=== PATIENT | female | born 1945 | race Caucasian/White ===

== ENCOUNTER 2017-02-22 03:41 | Inpatient (IN) | payer OTHER, MEDICARE ==
[~2017-02-22] VITALS: Ht 152.4 cm; Wt 47.6 kg
[~2017-02-22 03:41] MED LIST: ABILIFY 10 MG10 MG PO; ALENDRONATE SOD70 M1 PO; ALPRAZOLAM0.5 M3 PO; AZITHROMYCIN500 MG PO; CLOPIDOGREL75 MG PO; DIOVAN80 MG PO; ESCITALOPRAM10 MG PO; FLOVENT HF0.22 MG/Ac INH; LAMISIL250 MG PO; MOXIFLOXACIN H400 M1 PO; MYRBETRIQ25 MG PO; OXYBUTYNIN CHLOR5 MG PO; PAROXETINE HCL40 M1 PO; PREDNISONE 10MG10 M1 PO; PREDNISONE10 MG PO; PROAIR HFA0.09 MG/Ac INH; SIMVASTATIN40 MG PO; SPIRIVA 18 MCG18 MCG INH; THEOPHYLLINE300 M2 PO; THEOPHYLLINE300 MG PO; VESICARE 10MG10 MG PO; ZITHROMAX Z PA250 MG PO
--- NOTE | 2017-02-22 03:50 | ED DYSPNEA/ASTHMA COMPLAINT ---
History of Present Illness General Chief Complaint: Dyspnea (COPD, CHF, Other) Stated Complaint: DIFF BREATHING Source: patient, old records, EMS Exam Limitations: no limitations Vital Signs & Intake/Output Vital Signs & Intake/Output Vital Signs Date Time Temp Pulse Resp B/P B/P Pulse O2 O2 Flow FiO2 Mean Ox Delivery Rate 02/22 0554 96.7 63 20 96/47 97 BIPAP 30% 02/22 0457 64 98 02/22 0411 97 Nasal 3.0L Cannula 02/22 0347 97.5 71 22 132/57 99 Nasal 3.0L Cannula Allergies Coded Allergies: oxycodone (KNOCKED ME OUT 01/13/16) Reconcile Medications Albuterol Sulfate (Proair Hfa) 0.09 MG/Actuation BRENDA 2 PUF INH PRN COPD ( Reported) Alendronate Sodium 70 MG TAB 1 TAB PO QFRIDAY BONE (Reported) Aripiprazole (Abilify) 10 MG TABLET 1 TAB PO DAILY MENTAL HEALTH (Reported) Azithromycin (Zithromax Z Pack) 250 MG TAB 1 TAB PO DAILY PNEUMONIA TAKE 2 TABS ON DAY 1 AND THEN 1 PILL A DAY FOR 4 ADDITIONAL DAYS. CLOPIDOGREL BISULFATE (Clopidogrel) 75 MG TABLET 1 TAB PO DAILY ANTICOAGULANT (Reported) Escitalopram Oxalate 10 MG TABLET 1 TAB PO DAILY DEPRESSION (Reported) Fluticasone Propionate (Flovent Hfa) 0.22 MG/Actuation RBENDA 2 PUFF INH BID COPD (Reported) 220 MCG PER PUFF Mirabegron (Myrbetriq) [address] 1 TAB PO DAILY UNKNOWN (Reported) PAROXETINE HCL (Paroxetine) 40 MG TABLET 1 TAB PO DAILY DEPRESSION (Reported) Simvastatin 40 MG TABLET 1 TAB PO QPM CHOLESTEROL (Reported) Solifenacin Succinate (Vesicare) 10 MG TABLET 1 TAB PO DAILY BLADDER ( Reported) THEOPHYLLINE ANHYDROUS (Theophylline Anhydrous) 300 MG TAB.ER.12H 1 TAB PO QAM COPD (Reported) Tiotropium [place] (Spiriva) 18 MCG CAP.W.DEV 1 CAP INH DAILY COPD (Reported) Valsartan (Diovan) 80 MG TAB 0.5 TAB PO DAILY BLOOD PRESSURE (Reported) Triage Nurses Notes Reviewed? yes HPI: Patient woke up this morning feeling she cannot breathe. Patient denies any chest pain or chest tightness. Patient has had a nonproductive cough. Patient is chronically on 3 L of oxygen. Upon EMS arrival patient was tripoding and not speaking complete sentences. Patient was given a DuoNeb and 125 mg of IV Solu- Medrol. Upon presentation in the emergency department she is much more comfortable and is now able to speak complete sentences. Patient denies any fevers or chills. There is no anorexia. EMS states that they know this patient well and she usually refuses to come to the ER after she takes a few inhalations of her rescue inhaler. Past History Travel History Traveled to [place] past 21 day No Medical History Any Pertinent Medical History? see below for history Neurological: NONE EENT: NONE Cardiovascular: NONE Respiratory: asthma, COPD, emphysema Gastrointestinal: NONE Hepatic: NONE Renal: NONE Musculoskeletal: NONE Psychiatric: anxiety Endocrine: NONE Blood Disorders: NONE Cancer(s): NONE GEOSCIENCE PROFESSOR/Reproductive: NONE History of MRSA: No History of VRE: No History of CDIFF: No Surgical History Surgical History: non-contributory Psychosocial History Who do you live with Patient/Self Services at Home Home Health Aide, Oxygen, Occupational Therapy What is your primary language Turkish Tobacco Use: Quit >30 days ago ETOH Use: denies use Illicit Drug Use: denies illicit drug use Family History Family History, If Any: MOTHER FH: emphysema Hx Contributory? No Review of Systems Review of Systems Constitutional: Reports: no symptoms. EENTM: Reports: no symptoms. Respiratory: Reports: see HPI, cough, short of breath, wheezing. Cardiovascular: Reports: no symptoms. GI: Reports: no symptoms. Genitourinary: Reports: no symptoms. Musculoskeletal: Reports: no symptoms. Skin: Reports: no symptoms. Neurological/Psychological: Reports: no symptoms. Hematologic/Endocrine: Reports: no symptoms. Immunologic/Allergic: Reports: no symptoms. All Other Systems: Reviewed and Negative Physical Exam Physical Exam General Appearance: well developed/nourished, alert, awake, anxious, moderate distress Head: atraumatic, normal appearance Eyes: Bilateral: PERRL, EOMI. Ears, Nose, Throat: normal pharynx, normal ENT inspection, hearing grossly normal Neck: normal inspection, supple, full range of motion Respiratory: decreased breath sounds, wheezing, respiratory distress Cardiovascular: regular rate/rhythm, normal peripheral pulses Gastrointestinal: normal bowel sounds, soft, non-tender, no organomegaly Extremities: normal inspection, normal capillary refill, normal range of motion, no edema Neurologic/Psych: no motor/sensory deficits, awake, alert, oriented x 3, normal mood/affect Skin: intact, normal color, warm/dry Lymphatic: no anterior cervical balwinder Core Measures ACS in differential dx? No Severe Sepsis Present: No Septic Shock Present: No Progress Differential Diagnosis: AMI, bronchitis, COPD, pneumonia, pneumothorax Plan of Care: Orders Procedure Date/time Status ARTERIAL BLOOD GAS (GEN) 02/22 0553 Active BIPAP 02/22 0500 Complete ARTERIAL BLOOD GAS (GEN) 02/22 346 Complete Telemetry/Parole Or Probation Officer 02/22 346 Active BLOOD CULTURE 02/22 346 Active URINALYSIS 02/22 346 Active TROPONIN LEVEL 02/22 346 Complete LACTIC ACID 02/22 346 Complete COMPREHENSIVE METABOLIC PANEL 02/22 346 Complete CBC WITHOUT DIFFERENTIAL 02/22 346 Complete EKG 02/22 343 Active Current Medications Sig/Oskar Start time Last Medication Dose Stop Time Status Admin Sodium Chloride 1,000 ML BOLUS ONE 02/22 0600 UNVr (Normal Saline 0.9%) 02/22 0659 Laboratory Tests 02/22/17 0425: pH 7.29 *L, pCO2 63 *H, pO2 89, HCO3 30 H, ABG O2 Sat (Measured) 96.0, P-50 ( Temp Corrected) Y, Carboxyhemoglobin 0 L, O2 Concentration % 2.5 LPM, Temperature 97.5, O2 Delivery Method N/C, Phlebotomy Draw Site RIGHT RADIAL 02/22/175: Anion Gap 8, Estimated GFR 55 L, BUN/Creatinine Ratio 24.0, Glucose 130 H, Lactic Acid < 0.5 L, Calcium 9.4, Total Bilirubin 0.4, AST 22, ALT 33, Alkaline Phosphatase 88, Troponin I < 0.01, Total Protein 6.2 L, Albumin 3.9, Globulin 2.3, Albumin/Globulin Ratio 1.7, CBC w Diff NO MAN DIFF REQ, RBC 3.78 L, MCV 89.5, MCH 29.0, RDW 14.5, MPV 9.2, Gran % 76.8 H, Lymphocytes % 10.4 L, Monocytes % 9.2, Eosinophils % 2.9, Basophils % 0.7, Absolute Granulocytes 6.9 H, Absolute Lymphocytes 0.9 L, Absolute Monocytes 0.8 H, Absolute Eosinophils 0.3, Absolute Basophils 0.1, PUBS MCHC 32.3 L Microbiology 02/23 408 BLOOD: Blood Culture - RECD 02/22 355 BLOOD: Blood Culture - RECD Diagnostic Imaging: Viewed by Me: Radiology Read. Discussed w/RAD: Radiology Read. CXR Impression: PATIENT: LANI MUHAMMAD PRESENT AGE: 71 PATIENT ACCOUNT NO: [id number] : 45 LOCATION: [facility] ORDERING PHYSICIAN: DENNIS CORTEZ MD SERVICE DATE: 02/22/17 EXAM TYPE: RAD - XRY- PORTABLE CHEST XRAY EXAMINATION: XR PORTABLE CHEST CLINICAL INFORMATION: Shortness of breath COMPARISON: Multiple priors, most recently chest CT from 03/2017 TECHNIQUE: Portable frontal view of the chest was obtained. FINDINGS: The lungs are well expanded. No consolidation, edema, or effusion. No pneumothorax. The cardiomediastinal silhouette is unchanged, with a calcified aorta. No acute osseous abnormality. IMPRESSION: No acute pulmonary findings. DICTATED BY: KAUSHIK BECK MD DATE/TIME DICTATED:02/22/17411 EXTRA GANG SUPERVISOR:KAYLA DATE/TIME TRANSCRIBED:02/22/17411 CONFIDENTIAL, DO NOT COPY WITHOUT APPROPRIATE AUTHORIZATION. <Electronically signed in Other Vendor System> SIGNED BY: EBONY LONGORIA,KAUSHIK 02/22/17416 Initial ED EKG: NSR, nonspecific ST T wave chg Prior EKG: unchanged Rhythm Strip: normal sinus rhythm Comments: Patient's ABG shows hypercarbic respiratory failure. Patient states that she is feeling much better than she did when she first woke up. Patient at this point does not feel that she needs to stay in the hospital. Patient will go on BiPAP for 2 hours and then will keep the ABG. At that point the patient will be reevaluated to determine if she needs admission or can safely be discharged home. After an hour of the BiPAP the patient could not tolerate it anymore. Respiratory has been paged to remove the BiPAP and recheck her ABG. Patient's blood pressure did decrease to 96/50. Patient is asymptomatic from it. A liter of fluid has been home. At this point the patient is agreeable to stay in the hospital. Departure Departure Disposition: STILL A PATIENT Condition: Stable Clinical Impression Primary Impression: Hypercapnic respiratory failure Qualifiers: Chronicity: acute Qualified Code: J96.02 - Acute respiratory failure with hypercapnia Secondary Impressions: COPD exacerbation Referrals: BHARGAV BAIN MD (PCP/Family) Departure Forms: Customer Survey General Discharge Information Admission Note Spoke With: GERONIMO WATTS MD Documentation of Exam: Documentation of any treatments & extenuating circumstances including Concerns Regarding Discharge (functional status, medication knowledge or non-compliance, living conditions, etc.) that warrant an admission rather than observation: [IV steroids, IV antibiotics, IV fluids, nebulizers, pulmonary consultation] Critical Care Note Critical Care Note Critical Care Time: mins: (75 MIN)
--- NOTE | 2017-02-22 04:17 | RADIOLOGY REPORT ---
EXAMINATION: XR PORTABLE CHEST CLINICAL INFORMATION: Shortness of breath COMPARISON: Multiple priors, most recently chest CT from 01/02/2017 TECHNIQUE: Portable frontal view of the chest was obtained. FINDINGS: The lungs are well expanded. No consolidation, edema, or effusion. No pneumothorax. The cardiomediastinal silhouette is unchanged, with a calcified aorta. No acute osseous abnormality. IMPRESSION: No acute pulmonary findings.
[2017-02-22 04:20] LABS: ABSOLUTE BASOPHIL COUNT 0.1 /CUMM (0.0-0.2); ABSOLUTE EOSINOPHIL COUNT 0.3 /CUMM (0.0-0.7); ABSOLUTE GRANULOCYTE CT 6.9 /CUMM (1.4-6.5); ABSOLUTE LYMPH COUNT 0.9 /CUMM (1.2-3.4); ABSOLUTE MONOCYTE COUNT 0.8 /CUMM (0.10-0.60); BASOPHIL % 0.7 % (0.0-2.0); EOSINOPHIL % 2.9 % (0-5); GRANULOCYTE % 76.8 % (42.2-75.2); HEMATOCRIT 33.8 % (37-47); MEAN CORPUSCULAR HGB CONC 32.3 G/DL (33.0-37.0); MEAN CORPUSCULAR VOLUME 89.5 FL (81.0-99.0); MEAN PLATELET VOLUME 9.2 FL (7.4-10.4); PLATELET COUNT 254 /CUMM (130-400); RBC DISTRIBUTION WIDTH 14.5 % (11.5-14.5); RED BLOOD CELL CT 3.78 /CUMM (4.20-5.40); WHITE BLOOD CELL COUNT 8.9 /CUMM (4.8-10.8)
--- NOTE | 2017-02-22 07:16 | History & Physical ---
MAGYYandyFIORELLAINOCENTE 02/22/17 0715: General Information and HPI MD Statement: I have seen and personally examined LANI MUHAMMAD and documented this H&P. The patient is a 71 year old F who presented with a patient stated chief complaint of [SOB]. Source of Information: patient Exam Limitations: no limitations History of Present Illness: This is a 71-year-old female previous smoker (72 pack years, quit 10 years ago) with past medical history of COPD on 3 L of home oxygen, emphysema, hyperlipidemia, depression, hypertension, was BIBA from home with chief complaint of worsening shortness of breath to [facility] on 02/22 around 4 AM. Apprently,the patient was doing all right 2 days prior to admission, when she started feeling short of breath day before yesterday night, however she continued to take her inhalers and she felt better.The next day which is in the night of admission, she woke up in the middle of the night gasping for breathing , she got her up, she again tried using her inhaler, however this time she did not feel better at all , in fact the shortness of breath was worsening. Nothing made her comfortable, she was short of breath sitting as well as lying down. She denied any chest pain, palpitations, lower extremity swelling, headache, recent sore throat, any sick contacts, nasal congestion. At baseline she does have shortness of breath and she is on 3 L of home oxygen. Recently in last few years she says that the shortness of breath has been worsening and she needs help with most of her activities of daily living. She has 3 separate home health aides that come different days of the week and help her with cleaning, housekeeping, getting her medications, she gets prepared meals from outside, she can dress up and bath herself otherwise all her other activities she needs help with. The limiting factor has been shortness of breath. She follows up with Dr. Slater as her pulmonary doctor. Bhargav King MD is her primary care. The last time she saw Dr. Slater as per her would be 2 years ago. Allergies/Medications Allergies: Coded Allergies: oxycodone (KNOCKED ME OUT 01/13/16) Home Med list Albuterol Sulfate (Proair Hfa) 0.09 MG/Actuation BRENDA 2 PUF INH PRN COPD ( Reported) Alendronate Sodium 70 MG TAB 1 TAB PO QFRIDAY BONE (Reported) Aripiprazole (Abilify) 10 MG TABLET 1 TAB PO DAILY MENTAL HEALTH (Reported) Azithromycin (Zithromax Z Pack) 250 MG TAB 1 TAB PO DAILY PNEUMONIA TAKE 2 TABS ON DAY 1 AND THEN 1 PILL A DAY FOR 4 ADDITIONAL DAYS. CLOPIDOGREL BISULFATE (Clopidogrel) 75 MG TABLET 1 TAB PO DAILY ANTICOAGULANT (Reported) Escitalopram Oxalate 10 MG TABLET 1 TAB PO DAILY DEPRESSION (Reported) Fluticasone Propionate (Flovent Hfa) 0.22 MG/Actuation BRENDA 2 PUFF INH BID COPD (Reported) 220 MCG PER PUFF Mirabegron (Myrbetriq) [address] TAB PO DAILY UNKNOWN (Reported) Paroxetine HCl 40 MG TABLET 1.5 TAB PO DAILY MENTAL HEALTH (Reported) Simvastatin 40 MG TABLET 1 TAB PO QPM CHOLESTEROL (Reported) Solifenacin Succinate (Vesicare) 10 MG TABLET 1 TAB PO DAILY BLADDER ( Reported) THEOPHYLLINE ANHYDROUS (Theophylline Anhydrous) 300 MG TAB.ER.12H 1 TAB PO QAM COPD (Reported) Tiotropium [place] (Spiriva) 18 MCG CAP.W.DEV 1 CAP INH DAILY COPD (Reported) Compliance With Home Meds: FAIR Past History Travel History Traveled to [place] past 21 day No Medical History Neurological: NONE EENT: NONE Cardiovascular: NONE Respiratory: asthma, COPD, emphysema Gastrointestinal: NONE Hepatic: NONE Renal: NONE Musculoskeletal: NONE Psychiatric: anxiety Endocrine: NONE Blood Disorders: NONE Cancer(s): NONE 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 Home Who Do You Live With? self Services at Home: Home Health Aide, Oxygen, Occupational Therapy Smoking Status: Former Smoker ETOH Use: denies use Illicit Drug Use: denies illicit drug use Living Will? no Functional Ability ADLs Independent: dressing, eating, toileting, bathing. Ambulation: independent IADLs Needs Assist: shopping, housework, finances, food prep, transportation, medication admin. Review of Systems Review of Systems Constitutional: Reports: malaise. Denies: chills, diaphoresis, fever, weakness, unexplained weight loss. EENTM: Denies: blurred vision, double vision, visual changes, eye pain. Cardiovascular: Denies: chest pain, edema, orthopena, palpitations. Respiratory: Reports: cough, short of breath, sputum production, wheezing. Denies: hemoptysis, orthopnea, stridor. GI: Denies: abdominal pain, bloating, constipation, diarrhea. Genitourinary: Denies: discharge, dysuria, frequency, hematuria. Musculoskeletal: Denies: back pain, gout, joint pain. Skin: Denies: cysts, change in skin color, change in hair/nails, dryness, erythema. Neurological/Psychological: Reports: anxiety. Denies: cognitive dysfunction, confusion. Hematologic/Endocrine: Reports: no symptoms. Immunologic/Allergic: Reports: no symptoms. All Other Systems: Reviewed and Negative Exam & Diagnostic Data Last 24 Hrs of Vital Signs/I&O Vital Signs Date Time Temp Pulse Resp B/P B/P Pulse O2 O2 Flow FiO2 Mean Ox Delivery Rate 02/22 0704 102/56 02/22 0605 62 96 02/22 0554 96.7 63 20 96/47 97 BIPAP 30% 02/22 0457 64 98 02/22 0411 97 Nasal 3.0L Cannula 02/22 0347 97.5 71 22 132/57 99 Nasal 3.0L Cannula Intake & Output 02/22 0800 02/22 0000 02/21 1600 Intake Total 260 Output Total Balance 260 Intake, IV 260 Patient 47.627 kg Weight Weight Reported by Patient Measurement Method Physical Exam General Appearance Alert, Oriented X3, Cooperative, Mild Distress Skin No Rashes, No Breakdown Skin Temp/Moisture Exam: Cool/Dry Sepsis Skin Exam (color): Normal for Ethnicity HEENT Atraumatic, PERRLA, EOMI Neck Supple, No JVD Lymphatic no lad Cardiovascular Regular Rate, Normal S1, Normal S2, No Murmurs Lungs b/l mild wheezing present, no crackles, no other adventitous sounds. Abdomen Normal Bowel Sounds, Soft, No Tenderness Neurological Normal Gait, Normal Speech, Strength at 5/5 X4 Ext, Normal Tone Extremities No Clubbing, No Cyanosis, No Edema, Normal Pulses Vascular Normal Pulses Last 24 Hrs of Labs/Chauncey: Laboratory Tests 02/22/17 0646: Lactic Acid Cancelled 02/22/17 0600: pH 7.29 *L, pCO2 60 *H, pO2 80, HCO3 29 H, ABG O2 Sat (Measured) 95.0 L, P-50 (Temp Corrected) Y, Carboxyhemoglobin 0.2 L, O2 Concentration % 30%, Temperature 96.7 L, Respiration Rate 18, O2 Delivery Method V-60, Vent Mode ST, Expiratory Pressure 4, Inspiratory Pressure 10, Phlebotomy Draw Site RIGHT RADIAL 02/22/17 0425: pH 7.29 *L, pCO2 63 *H, pO2 89, HCO3 30 H, ABG O2 Sat (Measured) 96.0, P-50 ( Temp Corrected) Y, Carboxyhemoglobin 0 L, O2 Concentration % 2.5 LPM, Temperature 97.5, O2 Delivery Method N/C, Phlebotomy Draw Site RIGHT RADIAL 02/22/17 0355: Anion Gap 8, Estimated GFR 55 L, BUN/Creatinine Ratio 24.0, Glucose 130 H, Lactic Acid < 0.5 L, Calcium 9.4, Total Bilirubin 0.4, AST 22, ALT 33, Alkaline Phosphatase 88, Troponin I < 0.01, Total Protein 6.2 L, Albumin 3.9, Globulin 2.3, Albumin/Globulin Ratio 1.7, CBC w Diff NO MAN DIFF REQ, RBC 3.78 L, MCV 89.5, MCH 29.0, RDW 14.5, MPV 9.2, Gran % 76.8 H, Lymphocytes % 10.4 L, Monocytes % 9.2, Eosinophils % 2.9, Basophils % 0.7, Absolute Granulocytes 6.9 H, Absolute Lymphocytes 0.9 L, Absolute Monocytes 0.8 H, Absolute Eosinophils 0.3, Absolute Basophils 0.1, PUBS MCHC 32.3 L Microbiology 02/23 408 BLOOD: Blood Culture - RECD 02/22 355 BLOOD: Blood Culture - RECD Diagnostic Data EKG Results Rate of 76, sinus rhythm, normal axis, QTC of 410. CXR Results SERVICE DATE: 02/22/17 EXAM TYPE: RAD - XRY-PORTABLE CHEST XRAY EXAMINATION: XR PORTABLE CHEST CLINICAL INFORMATION: Shortness of breath COMPARISON: Multiple priors, most recently chest CT from 01/02/2017 TECHNIQUE: Portable frontal view of the chest was obtained. FINDINGS: The lungs are well expanded. No consolidation, edema, or effusion. No pneumothorax. The cardiomediastinal silhouette is unchanged, with a calcified aorta. No acute osseous abnormality. IMPRESSION: No acute pulmonary findings. Assessment/Plan Assessment: In summary this is a 71-year-old female, known case of COPD (emphysema) on 3 L of home oxygen, previous smoker (72 pack years, quit 10 years ago), along with past medical history of hyperlipidemia, hypertension, depression, brought in by ambulance from home for chief complain of worsening shortness of breath, along with acute exacerbation wherein she had to get up in the middle of the night, not improved by taking her usual inhalers was found to be in hypercarbic respiratory failure while at the emergency department. Vitals on presentation were blood pressure of 132/57, mean arterial pressure of 82, pulse of 71, Tmax of 97.5. ABG initially was 7.29/63/89/96%. She was put on BiPAP at the emergency department. White count of 8.9, H/H of 33.8/10.9, platelet of 254. Electrolytes within normal limit, BUN and creatinine 24/1.0, blood glucose of 130. Calcium of 9.4, liver function tests within normal limits, alkaline phosphatase normal. Initial set of troponin was negative. EKG showed normal sinus rhythm with rate of 73,, axis, QTC of 410, nonspecific T -wave abnormalities however no acute changes. Chest x-ray was negative for any acute cardiopulmonary finding. We will admit the patient to general medicine floor for hypercarbic respiratory failure secondary to COPD exacerbation. Problem #1 acute hypercarbic respiratory failure secondary to COPD exacerbation. * Continue to monitor vitals qshift. * Continue to maintain oxygen saturation greater than 92% all the time. * Continue BiPAP v/s nasal cannula as tolerated while keeping o2 sats > 92% all the time and taper as tolerated. * Continue TRC nebulizations. * Peak expiration flow. * She received 125 mg of IV Solu-Medrol emergency department. * Continue iv solumedrol 40 mg Q8 * She also received one time of IV ceftriaxone and azithromycin after collection of the blood cultures. * We'll send sputum cultures. * Chest x-ray did not show any acute pulmonary findings. * Continue azithromycin - day 1/5 today for its anti-inflammatory effect. * pulm consult with Dr stevens. Problem #2 history of hyperlipidemia. * Continue statin. Problem #3 history of hypertension. * Patient was noted to be hypotensive blood pressure was noted to be 96/70 after putting the patient on BiPAP therefore we'll hold the blood pressure medication for now. * Continue to monitor blood pressure. * Restart as tolerated. Problem #4 history of depression and anxiety. * Patient is on Lexapro, paroxetine, aripiprazole at home. * We will hold that for now. * Restart as tolerated. She is on alendronate for osteoporosis, Vesicare for urinary issues and clopidogrel for which she is not 100% sure., however all three meds were reconciled by pharmacy ( [facility]) Will need to confirm BP meds as records say losartan but [facility] pharmacy says amlodipine 10, patient is unsure. Mild/moderate and severe pain pathway ordered with Tylenol, mainly as the patient is allergic to oxycodone. Patient is full code. DVT prophylaxis with Lovenox. Mild/moderate and severe pain pathway ordered. Regular diet. As Ranked By This Provider Problem List: 1. COPD exacerbation 2. HTN (hypertension) 3. Hypercapnic respiratory failure Qualifiers Chronicity: acute Qualified Code: J96.02 - Acute respiratory failure with hypercapnia 4. DVT prophylaxis Core Measures/Miscellaneous Acute Coronary Syndrome ACS Diagnosis: No Cerebrovascular Accident CVA/TIA Diagnosis: No Congestive Heart Failure CHF Diagnosis: No Venous Thromboembolism VTE Risk Factors: Age > 40 No [facility] VTE prophylaxis d/t: No contraindications No VTE Pharm Prophylaxis d/t: No contraindications VTE Diagnosis: No VTE Type: NONE VTE Confirmed by (Test): NONE Severe Sepsis Severe Sepsis Present: No Septic Shock Septic Shock Present: No Miscellaneous Documentation Attending Case Discussed With: TOPHER WATTS MDYandy Primary Care Physician: ODELL LONGORIA,BHARGAV Patient sees these Specialists DR stevens Level of Patient Care: General Medicine ANNA FOSS 02/22/17 1154: Attending MD Review Statement Attending Statement Attending MD Statement: examined this patient, discuss w/resident/PA/PHOTOGRAPHIC LITHOGRAPHER, agreed w/resident/PA/PHOTOGRAPHIC LITHOGRAPHER, discussed with family, reviewed EMR data (avail), discussed with nursing, discussed with case mgmt, reviewed images, amended to note Attending Assessment/Plan: admit to gen/med for acute hypercarbic respiratroy failure, COPD exacerbation, consult pulmonary. Dr Stevens. closely follow.
[2017-02-22 10:02] VITALS: BP 130/70
[2017-02-22 11:48] VITALS: BP 120/60
[2017-02-22 15:08] VITALS: BP 140/60
[2017-02-22 23:02] VITALS: BP 122/50
[2017-02-23 06:39] VITALS: BP 156/70
--- NOTE | 2017-02-23 13:38 | PN- Housestaff ---
SAWYER LONGORIA,ENID 02/23/17 1337: Subjective Follow-up For: COPD exacerbation Subjective: Saw pt at bedside. She states that she feels better but doesn't feel comfortable leaving today as there is nobody to take care of her at home. She is still feeling SOB at her baseline 3L. Afebrile overnight and no complaints. Review of Systems Constitutional: Denies: chills, fever, weakness. EENTM: Reports: no symptoms. Cardiovascular: Denies: chest pain, palpitations. Respiratory: Reports: short of breath. Denies: cough, sputum production. Gastrointestinal: Reports: no symptoms. Genitourinary: Reports: no symptoms. Musculoskeletal: Reports: no symptoms. Skin: Reports: no symptoms. Objective Last 24 Hrs of Vital Signs/I&O Vital Signs Date Time Temp Pulse Resp B/P B/P Pulse O2 O2 Flow FiO2 Mean Ox Delivery Rate 02/23 1423 98.0 90 20 122/80 96 Room Air 02/23 1056 99 Nasal 3.0L Cannula 02/23 0800 Nasal 3.0L Cannula 02/23 0639 98.9 98 24 156/70 99 Nasal 4.0L Cannula 02/23 0000 Nasal 3.0L Cannula 02/22 2302 98.1 86 22 122/50 97 Nasal Cannula 02/22 1958 98 Nasal 3.0L Cannula Intake & Output 02/23 1600 02/23 0800 02/23 0000 Intake Total 800 Output Total 100 Balance 800 -100 Intake, Oral 800 Output, Urine 100 Physical Exam General Appearance: Alert, Oriented X3, Cooperative, No Acute Distress HEENT: Atraumatic, PERRLA, EOMI Neck: Supple Cardiovascular: Regular Rate, Normal S1, Normal S2, No Murmurs Lungs: diminished breath sounds but no wheezes present Abdomen: Soft, No Tenderness Current Medications: Current Medications Sig/Oskar Start time Last Medication Dose Route Stop Time Status Admin Acetaminophen 650 MG Q6P PRN 02/22 0715 AC PO Acetaminophen 1,000 MG Q6 PRN 02/22 0715 AC IV Albuterol Sulfate 3 ML BID 02/22 2200 AC 02/23 INH 1051 Aripiprazole 10 MG DAILY 02/22 1235 AC 02/23 PO 0957 Atorvastatin Calcium 40 MG 1700 02/22 1700 AC 02/23 PO 1655 Azithromycin 250 MG DAILY 02/23 1000 AC 02/23 PO 0956 Clopidogrel Bisulfate 75 MG DAILY 02/23 1651 UNVr PO Enoxaparin Sodium 40 MG DAILY 02/22 1000 AC 02/23 SC 0957 Escitalopram Oxalate 10 MG DAILY 02/22 1235 AC 02/23 PO 0956 Ipratropium [place] 2.5 ML BID 02/22 2200 AC 02/23 INH 1051 Methylprednisolone 40 MG Q8 02/22 1400 AC 02/23 IV 02/26 0601 1444 Oxybutynin Chloride 5 MG BID 02/22 1236 AC 02/23 PO 0956 Paroxetine HCl 60 MG DAILY 02/22 1237 AC 02/23 PO 0956 Theophylline 300 MG QAM 02/22 1236 AC 02/23 PO 0956 Assessment/Plan Assessment: This is a 71-year-old female with PMH emphysema on 3 L of home oxygen, previous smoker (72 pack years, quit 10 years ago), hyperlipidemia, hypertension, depression presenting for CC worsening shortness of breath and found to be in hypercarbic respiratory failure while at the emergency department. Admitted to [facility] for managment of COPD exacerbation. PLAN Acute hypercarbic respiratory failure 2/2 to COPD exacerbation: pT REQURIED BIPAP IN ed. Once she same to floor she has maintained sats on NC. Today dec reased NC to her baseline 3L. * Chest x-ray did not show any acute pulmonary findings. * Continue to maintain oxygen saturation greater than 92% all the time. * Continue BiPAP v/s nasal cannula as tolerated * Continue TRC nebulizations * Peak expiration flow * Solumedrol 40mg q12--\. convert to PO steroids * Azithromycin. * We'll send sputum cultures. * Con't Theophylline; level not therapeutic hyperlipidemia. * Continue statin. hypertension. Had some transient hypotension after bipap administration, but subsequently returned to normal. * Continue to monitor blood pressure; will re-start BP meds. * BP meds as records say losartan but [facility] pharmacy says amlodipine 10, patient is unsure; in interim will administer amlodipine 5 and titrate history of depression and anxiety. * Cont' Lexapro, paroxetine, aripiprazole at home. Note! Pt is on clopidogrel: Pt cannot give pertinent hx on why she started medication. BUt upon further investigation and calling PCP she has hx of stroke and has had end-arterectomies. * Continue clopidogrel full code. DVT prophylaxis with Lovenox. Regular diet. Problem List: 1. COPD exacerbation 2. HTN (hypertension) 3. HLD (hyperlipidemia) 4. CAD (coronary artery disease) 5. Anxiety and depression 6. Bronchitis Pain Ratin Pain Location: none Pain Goal: Remain pain free Pain Plan: current reg Tomorrow's Labs & Rationales: cbc bep ANNA FOSS 02/23/17 1345: Attending MD Review Statement Attending Statement Attending MD Statement: examined this patient, discuss w/resident/PA/UTILITIES SERVICE INVESTIGATOR, agreed w/resident/PA/UTILITIES SERVICE INVESTIGATOR, discussed with family, reviewed EMR data (avail), discussed with nursing, discussed with case mgmt, reviewed images, amended to note Attending Assessment/Plan: admit to gen/med for acute hypercarbic respiratroy failure, COPD exacerbation, clinically improving, follow o/p Dr Stevens and PCP.
[2017-02-23 14:23] VITALS: BP 122/80
[2017-02-23 23:16] VITALS: BP 138/60
[2017-02-24 06:30] VITALS: BP 126/74
--- NOTE | 2017-02-24 07:46 | Patient Discharge Instructions ---
Discharge Instructions General Discharge Information You were seen/treated for: COPD exacerbation Watch for these problems: Worsening Shortness of breath fever Special Instructions: 1. Follow up with your PCP in one week 2. Follow up with your scale model maker in one week 3. Finish your steroids and Azithromycin 4. Cont' using oxygen tank at 3L at home Diet Continue normal diet: Yes Activity Activity Self Limited: Yes Acute Coronary Syndrome Inclusion Criteria At DC or during hospital stay patient has or had the following: ACS DIAGNOSIS No Discharge Core Measures Meds if any: Prescribed or Continued at Discharge Meds if any: NOT Prescribed or Continued at Discharge Congestive Heart Failure Inclusion Criteria At DC or during hospital stay patient has or had the following: CHF DIAGNOSIS No Discharge Core Measures Meds if any: Prescribed or Continued at Discharge Meds if any: NOT Prescribed or Continued at Discharge Cerebrovascular accident Inclusion Criteria At DC or during hospital stay patient has or had the following: CVA/TIA Diagnosis No Discharge Core Measures Meds if any: Prescribed or Continued at Discharge Meds if any: NOT Prescribed or Continued at Discharge Venous thromboembolism Inclusion Criteria VTE Diagnosis No VTE Type NONE VTE Confirmed by (Test) NONE Discharge Core Measures - Per Current guidelines, there needs to be overlap - treatment for the first 5 days of Warfarin therapy. - If discharged on Warfarin prior to 5 days of - overlap therapy, the patient will need to be - assessed for post discharge needs including - *Post discharge parental anticoagulation - *Warfarin and/or parental anticoagulation education - *Follow up date to check INR post discharge At least 5 days overlap therapy as Inpatient No Meds if any: Prescribed or Continued at Discharge Note: Overlap Therapy is Warfarin and Anticoagulant Meds if any: NOT Prescribed or Continued at Discharge
[2017-02-24] MEDS ORDERED: AZITHROMYCIN250 M1 PO (07:50)
--- NOTE | 2017-02-24 09:01 | PN- Housestaff ---
SAWYER LONGORIA,ENID 02/24/17 0856: Subjective Follow-up For: COPD exacerbation Subjective: Saw pt at bedside. She was sitting up in chair at bedside watching television. Back to her baseline 3l O2. No acute overnight events or complaint. Pt is ready for DC home Review of Systems Constitutional: Denies: chills, fever, weakness. Cardiovascular: Reports: no symptoms. Respiratory: Denies: cough, orthopnea, short of breath, wheezing. Gastrointestinal: Reports: no symptoms. Genitourinary: Reports: no symptoms. Musculoskeletal: Reports: no symptoms. Skin: Reports: no symptoms. Objective Last 24 Hrs of Vital Signs/I&O Vital Signs Date Time Temp Pulse Resp B/P B/P Pulse O2 O2 Flow FiO2 Mean Ox Delivery Rate 02/24 0630 97.7 87 22 126/74 99 Nasal 2.0L Cannula 02/24 0228 98 Nasal 2.0L Cannula 02/24 0000 96 Nasal 2.0L Cannula 02/23 2316 98.0 92 20 138/60 97 Nasal 2.0L Cannula 02/23 2002 96 Nasal 4.0L Cannula 02/23 1600 Nasal 2.0L Cannula 02/23 1423 98.0 90 20 122/80 96 Room Air 02/23 1056 99 Nasal 3.0L Cannula Intake & Output 02/24 1600 02/24 0800 02/24 0000 Intake Total 240 1220 Output Total Balance 240 1220 Intake, IV 20 Intake, Oral 240 1200 Physical Exam General Appearance: Alert, Oriented X3, Cooperative, No Acute Distress Skin: No Rashes, No Significant Lesion HEENT: Atraumatic, PERRLA, EOMI Neck: Supple Cardiovascular: Regular Rate, Normal S1, Normal S2, No Murmurs Lungs: She has decreased breath sounds bilat. No wheezes. Abdomen: Soft, No Tenderness Extremities: No Edema Current Medications: Current Medications Sig/Oskar Start time Last Medication Dose Route Stop Time Status Admin Acetaminophen 650 MG Q6P PRN 02/22 0715 AC PO Acetaminophen 1,000 MG Q6 PRN 02/22 0715 AC IV Albuterol Sulfate 3 ML BID 02/22 2200 AC 02/24 INH 0213 Aripiprazole 10 MG DAILY 02/22 1235 AC 02/23 PO 0957 Atorvastatin Calcium 40 MG 1700 02/22 1700 AC 02/23 PO 1655 Azithromycin 250 MG DAILY 02/23 1000 AC 02/23 PO 0956 Clopidogrel Bisulfate 75 MG DAILY 02/23 1651 AC 02/23 PO 2108 Enoxaparin Sodium 40 MG DAILY 02/22 1000 AC 02/23 SC 0957 Escitalopram Oxalate 10 MG DAILY 02/22 1235 DC 02/23 PO 0956 Ipratropium [place] 2.5 ML BID 02/22 2200 AC 02/24 INH 0213 Methylprednisolone 40 MG Q12 02/24 1000 CAN IV 02/26 2201 Methylprednisolone 40 MG Q8 02/22 1400 DC 02/24 IV 02/26 0601 0549 Nicotine 7 MG DAILY 02/24 0115 DC TOP Oxybutynin Chloride 5 MG BID 02/22 1236 AC 02/23 PO 2108 Paroxetine HCl 60 MG DAILY 02/22 1237 AC 02/23 PO 0956 Prednisone 60 MG DAILY 02/24 1000 AC PO Theophylline 300 MG QAM 02/22 1236 AC 02/23 PO 0956 Last 24 Hrs of Lab/Chauncey Results Last 24 Hrs of Labs/Mics: Laboratory Tests 02/24/17 0820: CBC w Diff Pending, WBC Pending, RBC Pending, Hgb Pending, Hct Pending, MCV Pending, MCH Pending, RDW Pending, Plt Count Pending, MPV Pending, PUBS MCHC Pending 02/24/17 0737: Sodium Cancelled, Potassium Cancelled, Chloride Cancelled, Carbon Dioxide Cancelled, Anion Gap Cancelled, BUN Cancelled, Creatinine Cancelled, BUN/ Creatinine Ratio Cancelled Assessment/Plan Assessment: This is a 71-year-old female with PMH emphysema on 3 L of home oxygen, previous smoker (72 pack years, quit 10 years ago), hyperlipidemia, hypertension, depression presenting for CC worsening shortness of breath and found to be in hypercarbic respiratory failure while at the emergency department. Admitted to [facility] for managment of COPD exacerbation. PLAN Acute hypercarbic respiratory failure 2/2 to COPD exacerbation: Pt required BIPAP in ED. Once she same to floor she has maintained sats on NC. Since day 2 of hosptializatin pt at her baseline 3L NC. Admission Chest x-ray did not show any acute pulmonary findings. * Continue to maintain oxygen saturation greater than 92% all the time. * Continue BiPAP v/s nasal cannula as tolerated * Continue TRC nebulizations * Peak expiration flow * PO steroids 40mg--> with rapid taper home * Azithromycin 3/ * Con't Theophylline; level not therapeutic hyperlipidemia. * Continue statin. hypertension. Had some transient hypotension after bipap administration, but subsequently returned to normal. Today BP 126/74 * Continue to monitor blood pressure; will re-start BP meds. * BP meds as records say losartan but [facility] pharmacy says amlodipine 10, patient is unsure; in interim will administer amlodipine 5 and titrate history of depression and anxiety. * Cont' Lexapro, paroxetine, aripiprazole at home. Note! Pt is on clopidogrel: Pt cannot give pertinent hx on why she started medication. But upon further investigation and calling PCP she has hx of stroke and has had end-arterectomies. * Continue clopidogrel full code. DVT prophylaxis with Lovenox. Regular diet. Problem List: 1. COPD exacerbation 2. HTN (hypertension) 3. HLD (hyperlipidemia) 4. Anxiety and depression Pain Ratin Pain Location: none Pain Goal: Remain pain free Pain Plan: none Tomorrow's Labs & Rationales: none DVT/Prophylaxis: pharmacological ANNA FOSS 02/24/17 1053: Attending MD Review Statement Attending Statement Attending MD Statement: examined this patient, discuss w/resident/PA/COMPOUNDING AND FINISHING SUPERVISOR, agreed w/resident/PA/COMPOUNDING AND FINISHING SUPERVISOR, discussed with family, reviewed EMR data (avail), discussed with nursing, discussed with case mgmt, reviewed images, amended to note Attending Assessment/Plan: admit to gen/med for acute hypercarbic respiratroy failure, COPD exacerbation, clinically improving, follow o/p Dr Stevens and PCP. Anticipate d/c soon. Patient on home oxygen . needs ride to go home.
[2017-02-24 09:15] LABS: ABSOLUTE BASOPHIL COUNT 0 /CUMM (0.0-0.2); ABSOLUTE EOSINOPHIL COUNT 0 /CUMM (0.0-0.7); ABSOLUTE LYMPH COUNT 0.1 /CUMM (1.2-3.4); ABSOLUTE MONOCYTE COUNT 0.3 /CUMM (0.10-0.60); BASOPHIL % 0 % (0.0-2.0); EOSINOPHIL % 0 % (0-5)
[2017-02-24 09:23] LABS: ABSOLUTE GRANULOCYTE CT 13.8 /CUMM (1.4-6.5); GRANULOCYTE % 97.1 % (42.2-75.2); HEMATOCRIT 33.4 % (37-47); MEAN CORPUSCULAR HGB 29.1 PG (27.0-31.0); MEAN CORPUSCULAR HGB CONC 32.7 G/DL (33.0-37.0); MEAN CORPUSCULAR VOLUME 89.1 FL (81.0-99.0); MEAN PLATELET VOLUME 9.1 FL (7.4-10.4); PLATELET COUNT 281 /CUMM (130-400); RBC DISTRIBUTION WIDTH 14.4 % (11.5-14.5); RED BLOOD CELL CT 3.74 /CUMM (4.20-5.40)
[2017-02-24 09:25] LABS: WHITE BLOOD CELL COUNT 14.2 /CUMM (4.8-10.8)
[2017-02-24] MEDS ORDERED: PREDNISONE10 M2 PO (10:13)
[2017-02-24 14:03] VITALS: BP 126/70
--- NOTE | 2017-02-27 14:33 | Discharge Summary ---
Visit Information Visit Dates Admission Date: 02/22/17 Discharge Date: 02/24/17 Hospital Course Course Attending Physician: ANNA FOSS MD Primary Care Physician: ODELL LONGORIA,[facility] Course: This is a 71-year-old female with PMH emphysema on 3 L of home oxygen, previous smoker (72 pack years, quit 10 years ago), hyperlipidemia, hypertension, depression presenting for CC worsening shortness of breath and found to be in hypercarbic respiratory failure while at the emergency department. Admitted to [facility] for managment of COPD exacerbation. Pt was seen for the following problems: Acute hypercarbic respiratory failure 2/2 to COPD exacerbation: Pt required BIPAP in ED. Once she same to floor she has maintained sats on NC. Since day 2 of hosptializatin pt at her baseline 3L NC. Admission Chest x-ray did not show any acute pulmonary findings. * PO steroids 40mg--> with rapid taper home * Azithromycin to finish 5 days * Con't Theophylline; level not therapeutic hyperlipidemia. * Continue statin. hypertension. Had some transient hypotension after bipap administration, but subsequently returned to normal. D/C BP 126/74 * Continue to monitor blood pressure; will re-start BP meds. * BP meds as records say losartan but [facility] pharmacy says amlodipine 10, patient is unsure; in interim will administer amlodipine 5 and titrate. Follow up outpatient regarding BP regimen. history of depression and anxiety. * Cont' Lexapro, paroxetine, aripiprazole at home. Note! Pt is on clopidogrel: Pt cannot give pertinent hx on why she started medication. But upon further investigation and calling PCP she has hx of stroke and has had end-arterectomies. * Continue clopidogrel and follow up with PCP regarding need for continued use for clopidogrel Allergies: Coded Allergies: oxycodone (KNOCKED ME OUT 01/13/16) Disposition Summary Disposition Principal Diagnosis: COPD exacerbation Additional Diagnosis: copd Discharge Disposition: home or self care Discharge Instructions General Discharge Information Code Status: Do Not Resucitate Patient's Diet: as tolerated Patient's Activity: as tolerated Follow-Up Instructions/Appts: see above Medications at Discharge Discharge Medications: Stop taking the following medications: Escitalopram Oxalate (Escitalopram Oxalate) 10 MG TABLET ORAL DAILY Qty = 30 Azithromycin (Zithromax Z Pack) 250 MG TAB ORAL DAILY Qty = 6 Continue taking these medications: Paroxetine HCl (Paroxetine HCl) 40 MG TABLET 1.5 Tablet ORAL DAILY Comments: Last Taken: 02/24/17 Time: 0930 AM CLOPIDOGREL BISULFATE (Clopidogrel) 75 MG TABLET 1 Tablet ORAL DAILY Qty = 30 Alendronate Sodium (Alendronate Sodium) 70 MG TAB 1 Tablet ORAL QFRIDAY Qty = 4 Aripiprazole (Abilify) 10 MG TABLET 1 Tablet ORAL DAILY Qty = 30 Simvastatin (Simvastatin) 40 MG TABLET 1 Tablet ORAL Every night Tiotropium [place] (Spiriva) 18 MCG CAP.W.DEV 1 Capsule Inhale through mouth DAILY Qty = 30 Solifenacin Succinate (Vesicare) 10 MG TABLET 1 Tablet ORAL DAILY Qty = 30 Fluticasone Propionate (Flovent Hfa) 0.22 MG/Actuation BRENDA 2 PUFF Inhale through mouth TWICE DAILY Qty = 1 Instructions: 220 MCG PER PUFF Albuterol Sulfate (Proair Hfa) 0.09 MG/Actuation BRENDA 2 Puff Inhale through mouth as needed for COPD Qty = 9 THEOPHYLLINE ANHYDROUS (Theophylline Anhydrous) 300 MG TAB.ER.12H 1 Tablet ORAL Every Morning Mirabegron (Myrbetriq) [address] Tablet ORAL DAILY Start taking the following new medications: Azithromycin (Azithromycin) 250 MG TABLET 250 Milligram ORAL DAILY Qty = 3 No Refills Prednisone (Prednisone) 10 MG TABLET 1 Tablet ORAL SEE ADMIN Qty = 21 No Refills Instructions: DATE TABS DOSE 02/25 06 60 MG 02/26 05 50 MG 02/27 04 40 MG 02/28 03 30 MG 03/01 02 20 MG 03/02 01 10 MG THEN STOP Copies To: ODELL LONGORIA,BHARGAV
== END 2017-02-24 17:26 | disposition home health service (06) | DRG 190 ==
LOC: ERH 03:41 → ERHI 06:03 → 2NA 06:03 → ENRESERV 06:42 → ERHI 07:50 → 2NA 07:50
PROVIDERS: Emergency Medicine; Student in an Organized Health Care Education/Training Program; ADMIT Student in an Organized Health Care Education/Training Program
PROC: 5A09357 Assistance with Respiratory Ventilation, Less than 24 Consecutive Hours, Continuous Positive Airway Pressure (ICD-10-PCS; principal; 2017-02-22)
DX: J44.1 Chronic obstructive pulmonary disease with (acute) exacerbation (principal); J96.02 Acute respiratory failure with hypercapnia; Z99.81 Dependence on supplemental oxygen; Z87.891 Personal history of nicotine dependence; I10 Essential (primary) hypertension; F32.9 Major depressive disorder, single episode, unspecified; F41.9 Anxiety disorder, unspecified
CPT/HCPCS: 2NASP; 36415; 81001; 82436; 87040; 87070; 93005; 93010; 94799; 96361; 96374; 96375; 97116-GO; 97161-GP; 97530-GO; 99291; J0131; J0401; J0456; J0696; J1650; J2920; J7040

== ENCOUNTER 2017-02-28 10:29 | Observation (INO) | payer OTHER, MEDICARE ==
[~2017-02-28] VITALS: Ht 152.4 cm; Wt 47.2 kg
[~2017-02-28 10:29] MED LIST changes: +AZITHROMYCIN250 M1 PO; +PREDNISONE10 M2 PO
--- NOTE | 2017-02-28 10:41 | ED DYSPNEA/ASTHMA COMPLAINT ---
History of Present Illness General Chief Complaint: Dyspnea (COPD, CHF, Other) Stated Complaint: BIBA, COPD EXAC Source: patient, old records, EMS Exam Limitations: no limitations Vital Signs & Intake/Output Vital Signs & Intake/Output Vital Signs Date Time Temp Pulse Resp B/P B/P Pulse O2 O2 Flow FiO2 Mean Ox Delivery Rate 02/28 1753 97.0 84 16 130/61 95 Nasal 2.0L Cannula 02/28 1709 96 Nasal 2.0L Cannula 02/28 1439 96 Nasal 2.5L Cannula 02/28 1329 98.6 83 18 132/89 97 Nasal 2.0L Cannula 02/28 1234 96 Nasal 2.5L Cannula 02/28 1048 100 Nasal 2.0L Cannula 02/28 1034 96.6 79 18 145/63 99 Nasal 2.0L Cannula Allergies Coded Allergies: oxycodone (KNOCKED ME OUT 01/13/16) Reconcile Medications Albuterol Sulfate (Ventolin Hfa) 90 MCG HFA.AER.AD 2 PUF INH AD PRN COPD ( Reported) Alendronate Sodium 70 MG TABLET 1 TAB PO QMON BONES (Reported) in the morning, at least 30 minutes before the first food, beverage, or medication of the day Amlodipine Besylate 10 MG TABLET 1 TAB PO DAILY BP (Reported) Aripiprazole (Abilify) 10 MG TABLET 1 TAB PO DAILY MENTAL HEALTH (Reported) Clopidogrel Bisulfate (Clopidogrel) 75 MG TABLET 1 TAB PO DAILY BLOOD THINNER (Reported) Fluticasone Propionate (Flovent Hfa) 220 MCG AER.W.ADAP 2 PUFF INH BID COPD ( Reported) Paroxetine HCl 40 MG TABLET 1 TAB PO DAILY MENTAL HEALTH (Reported) Simvastatin (Simvastatin*) 40 MG TABLET 1 TAB PO QPM CHOLESTEROL (Reported) Solifenacin Succinate (Vesicare) 10 MG TABLET 1 TAB PO DAILY BLADDER ( Reported) Theophylline Anhydrous 300 MG TAB.ER.12H 1 TAB PO DAILY COPD (Reported) Umeclidinium Julian (Incruse Ellipta) 62.5 MCG/ACTUATION BLST.W.DEV 1 PUFF INH DAILY COPD (Reported) Core Measure Meds Pre-Hospital antibiotics Triage Nurses Notes Reviewed? yes Onset: Just prior to arrival Duration: hour(s):, constant, continues in ED Timing: recent history Severity: moderate Activities at Onset: none Prior Episodes/Possible Cause: chronic episodes Modifying Factors: Worsens With: movement. Associated Symptoms: cough, weakness LMP (ages 10-50): post menopausal : No Patient currently breastfeeds: No HPI: Patient discharged from the hospital 5 days prior to admission for COPD exacerbation prescribed tapering doses of steroids and antibiotics. VNA reports patient confused about medications this morning with complaint of shortness of breath with cough and wheezing. She denies fever chills nausea vomiting diarrhea abdominal pain chest pain headache dysuria rash bleeding. Past History Travel History Traveled to [place] past 21 day No Medical History Any Pertinent Medical History? see below for history Neurological: NONE EENT: NONE Cardiovascular: hypertension, hyperlipidemia Respiratory: asthma, COPD, emphysema Gastrointestinal: NONE Hepatic: NONE Renal: NONE Musculoskeletal: NONE Psychiatric: anxiety Endocrine: NONE Blood Disorders: NONE Cancer(s): NONE WASTEWATER TREATMENT OPERATOR/Reproductive: NONE History of MRSA: No History of VRE: No History of CDIFF: No Surgical History Surgical History: non-contributory Psychosocial History Who do you live with Patient/Self Services at Home Home Health Aide, Oxygen, OT What is your primary language Israeli Tobacco Use: Never used Family History Family History, If Any: MOTHER FH: emphysema Hx Contributory? No Review of Systems Review of Systems Constitutional: Reports: no symptoms. EENTM: Reports: no symptoms. Respiratory: Reports: see HPI, cough, short of breath, wheezing. Cardiovascular: Reports: no symptoms. GI: Reports: no symptoms. Genitourinary: Reports: no symptoms. Musculoskeletal: Reports: no symptoms. Skin: Reports: no symptoms. Neurological/Psychological: Reports: no symptoms. Hematologic/Endocrine: Reports: no symptoms. Immunologic/Allergic: Reports: no symptoms. All Other Systems: Reviewed and Negative Physical Exam Physical Exam General Appearance: well developed/nourished, alert, awake, anxious, mild distress Head: atraumatic, normal appearance Eyes: Bilateral: normal appearance, PERRL, EOMI. Ears, Nose, Throat: normal pharynx, normal ENT inspection, hearing grossly normal Neck: normal inspection, supple, full range of motion, no midline tenderness Respiratory: chest non-tender, no respiratory distress, decreased breath sounds, rhonchi Cardiovascular: regular rate/rhythm, normal peripheral pulses, norml femoral pulses equa Peripheral Pulses: 4+ carotid (R), 4+ carotid (L) Gastrointestinal: normal bowel sounds, soft, non-tender, no organomegaly Extremities: normal inspection, normal capillary refill, normal range of motion, no edema, no ligament instability Neurologic/Psych: no motor/sensory deficits, awake, alert, oriented x 3, energy derivatives trader II- XII nml as tested Skin: intact, normal color Lymphatic: no anterior cervical balwinder Core Measures ACS in differential dx? No Severe Sepsis Present: No Septic Shock Present: No Progress Differential Diagnosis: CHF, COPD, pneumonia Plan of Care: Orders Procedure Date/time Status Regular Diet 02/28 D Active ARTERIAL BLOOD GAS (GEN) 02/28 1153 Complete MAGNESIUM 02/28 1040 Complete TROPONIN LEVEL 02/28 1039 Complete THEOPHYLLINE 02/28 1039 Complete COMPREHENSIVE METABOLIC PANEL 02/28 1039 Complete CBC WITHOUT DIFFERENTIAL 02/28 1039 Complete EKG 02/28 1030 Active Laboratory Tests 02/28/17 1220: pH 7.41, pCO2 57 H, pO2 93, HCO3 35 H, ABG O2 Sat (Measured) 96.0, P-50 (Temp Corrected) Y, Carboxyhemoglobin 0.8 L, O2 Concentration % 2.5L, Temperature 96.6 L, O2 Delivery Method N/C, Phlebotomy Draw Site RIGHT RADIAL 02/28/17 1059: Magnesium 2.1 02/28/17 1059: Anion Gap 5, Estimated GFR > 60, BUN/Creatinine Ratio 32.5 H, Glucose 82, Calcium 10.1, Total Bilirubin 0.5, AST 26, ALT 36, Alkaline Phosphatase 77, Troponin I 0.02, Total Protein 6.0 L, Albumin 3.6, Globulin 2.4, Albumin/ Globulin Ratio 1.5, CBC w Diff NO MAN DIFF REQ, RBC 4.16 L, MCV 88.8, MCH 28.8, RDW 14.6 H, MPV 8.6, Gran % 82.6 H, Lymphocytes % 5.0 L, Monocytes % 10.0 H, Eosinophils % 2.3, Basophils % 0.1, Absolute Granulocytes 8.0 H, Absolute Lymphocytes 0.5 L, Absolute Monocytes 1.0 H, Absolute Eosinophils 0.2, Absolute Basophils 0, PUBS MCHC 32.4 L, Theophylline 6.2 L Diagnostic Imaging: Viewed by Me: Radiology Read. Discussed w/RAD: Radiology Read. CXR Impression: no acute abnormality, no infiltrates Initial ED EKG: normal axis, normal intervals, normal p-waves, normal QRS complex, normal sinus rhythm, no ST T wave changes Prior EKG: unchanged Rhythm Strip: normal sinus rhythm Comments: Patient continues to complain of shortness of breath anxiety and fear of going home alone. Short-term rehabilitation suggested and declined initially. She discussed with daughter who prefers her to go to short-term rehabilitation which she is in agreement at her facility in [place]. Departure Departure Time of Disposition: 1902 Disposition: STILL A PATIENT Condition: Stable Clinical Impression Primary Impression: COPD with exacerbation Referrals: BHARGAV BAIN MD (PCP/Family) Departure Forms: Customer Survey General Discharge Information Observation Note Spoke With: BYRON WARD MD Physician Advisor Notified: RAMIREZ LONGORIA,PATIENCE [facility] Patient In: Non-ED OBS Care Area Rationale for Observation: My rational for observation is as follows supplemental oxygen serial beta agonist nebs medication adjustment continuing care discharge planning PT evaluation insure safety. Critical Care Note Critical Care Note Critical Care Time: non-applicable
--- NOTE | 2017-02-28 10:47 | NUR ---
XRAY AT BEDSIDE
--- NOTE | 2017-02-28 10:47 | NUR ---
71 YO FEMALE BIBA FROM HOME. PT HX OF COPD, WEARS 2-3 LITERS OXYGEN AT BASELINE. PT STATES SHE WAS SEEN HRE MONDAY AND SENT HOME WITH ANTIBIOTICS AND PREDNISONE. STATES "I THINK I FINISHED THEM OFF BUT MY VISITING NURSE DOESNT THINK I TOOK THEM RIGHT" PT C/O SOB. PT SATS 100% ON 2L OXYGEN. DENIES PAIN. NSR ON MONITOR. PT DENIES COUGH. MD TO BEDSIDE ON ARRIVAL, EKG COMPLETE
[2017-02-28 11:10] LABS: ABSOLUTE BASOPHIL COUNT 0 /CUMM (0.0-0.2); ABSOLUTE EOSINOPHIL COUNT 0.2 /CUMM (0.0-0.7); ABSOLUTE LYMPH COUNT 0.5 /CUMM (1.2-3.4); BASOPHIL % 0.1 % (0.0-2.0); EOSINOPHIL % 2.3 % (0-5); GRANULOCYTE % 82.6 % (42.2-75.2); HEMATOCRIT 36.9 % (37-47); MEAN CORPUSCULAR HGB 28.8 PG (27.0-31.0); MEAN CORPUSCULAR HGB CONC 32.4 G/DL (33.0-37.0); MEAN CORPUSCULAR VOLUME 88.8 FL (81.0-99.0); MEAN PLATELET VOLUME 8.6 FL (7.4-10.4); PLATELET COUNT 299 /CUMM (130-400); RBC DISTRIBUTION WIDTH 14.6 % (11.5-14.5); RED BLOOD CELL CT 4.16 /CUMM (4.20-5.40); WHITE BLOOD CELL COUNT 9.7 /CUMM (4.8-10.8)
--- NOTE | 2017-02-28 11:43 | RADIOLOGY REPORT ---
EXAMINATION: XR PORTABLE CHEST CLINICAL INFORMATION: Shortness of breath COMPARISON: 02/22/2017 TECHNIQUE: Portable frontal view of the chest was obtained. FINDINGS: No focal consolidation, pulmonary edema, or pleural effusion. Stable cardiomediastinal silhouette. IMPRESSION: Unremarkable examination. No change.
--- NOTE | 2017-02-28 11:53 | NUR ---
RT CALLED FOR NEB AND ABG
--- NOTE | 2017-02-28 12:13 | NUR ---
RESP AT BEDSIDE FOR TREATMENT AND ABG AT THIS TIME
--- NOTE | 2017-02-28 13:03 | NUR ---
PT REMAINS RESTING ON STRETCHER, OFFERS NO COMPLAINTS AT THIS TIME SATS REMAINS 95-100% ON 2L OXYGEN
--- NOTE | 2017-02-28 13:29 | NUR ---
PT STATES "I THINK IM STARTING TO FEEL BETTER" AWARE
--- NOTE | 2017-02-28 13:40 | NUR ---
REGULAR DIET TRAY ORDERED FROM [facility], SPOKE TO NASIMA.
--- NOTE | 2017-02-28 13:42 | NUR ---
REGULAR DIET ORDER PLACED PER DR VILLA AT THIS TIME
--- NOTE | 2017-02-28 14:34 | NUR ---
PT ATE LUNCH TRAY AT THIS TIME. RESP PAGED FOR TREATMENT.
--- NOTE | 2017-02-28 14:41 | NUR ---
RESP AT BEDSIDE
[2017-02-28] MEDS ORDERED: SIMVASTATIN40 M1 PO (15:07)
[2017-02-28] MEDS ORDERED: CLOPIDOGREL75 M1 PO (15:07)
[2017-02-28] MEDS ORDERED: FLOVENT HFA12 GM INH (15:07)
[2017-02-28] MEDS ORDERED: ABILIFY10 M1 PO (15:08)
[2017-02-28] MEDS ORDERED: AMLODIPINE BESY10 M1 PO (15:09)
[2017-02-28] MEDS ORDERED: THEOPHYLLINE A300 MG PO (15:09)
[2017-02-28] MEDS ORDERED: VENTOLIN HFA18 GM INH (15:09)
[2017-02-28] MEDS ORDERED: ALENDRONATE SOD70 M2 PO (15:09)
[2017-02-28] MEDS ORDERED: VESICARE10 MG PO (15:09)
[2017-02-28] MEDS ORDERED: INCRUSE ELLI62.5 MCG INH (15:53)
--- NOTE | 2017-02-28 16:59 | NUR ---
PT NOW REQUESTING STR, JUDO INSTRUCTOR NOTIFIED. RT PAGED FOR ADDITIONAL NEB TX
--- NOTE | 2017-02-28 17:56 | NUR ---
PT UPDATED ON PLAN AND NEED FOR CASE MANAGEMENT TO SPEAK WITH DAUGHTER. VSS. LIGHTS DIMMED FOR COMFORT AND PT INFORMED OF ORDERING OF DINNER TRAY
--- NOTE | 2017-02-28 18:00 | NUR ---
Case Mgmnt TSF: I went in to speak with patient. Patient's daughter had spoken with Dr. Bryant earlier and was mentioning that she works at a [employer]. I asked patient if it was ok for me to speak with daughter Mini (Ike) and she said it was. I called Mini @ [phone] for some collateral. Per daughter, since d/c patient has not been eating or drinking; has had increased difficulty making it to bathroom (thus not drinking); and ? of not taking meds properly. Patient also has [facility] at home for services. Bren MORE voiced concerns that patient might have not been taking meds properly as well. Mini works at [employer] in [place] and thought that she had a qualifying stay. I discussed possible plans of care with her and let her know that I would follow up with her with our plan of care. Case mgmnt continuing to follow.
--- NOTE | 2017-02-28 18:50 | NUR ---
Case Mgmnt TSF: I have updated patient and daughter as to plan of care at this time. I will do all pertinent paperwork. CM continuing to follow.
--- NOTE | 2017-02-28 18:53 | NUR ---
DINNER TRAY PROVIDED AND PT TOLERATING FOOD AND DRINK AT THIS TIME. REMAINS AAOX3, O2 SAT 97% RA
--- NOTE | 2017-02-28 19:25 | NUR ---
PT AMBULATORY TO BEDSIDE COMMODE INDEPENDENTLY. IV ESTABLISHED. VSS
--- NOTE | 2017-02-28 19:56 | NUR ---
PT RESTING ON STRETCHER, NO COMPLAINTS OFFERED AT THIS TIME.
--- NOTE | 2017-02-28 19:57 | NUR ---
Case Mgmnt TSF: I have completed: MIMR; attestation (faxed & confirmation received); Common john and CM assessment. Patient's daughter Mini is the chemical technician at [employer] in [place]. Numbers to reach her at are as follows: ; Work# [phone]; Home# [phone]. Mini will be at work at 7am tomorrow morning. Please try either work or cell number. Mini has been speaking to admitting at [employer]. I let them know about insurances and she is following up with them on her end. She knew they had a bed for her earlier and she will continue to follow up. Please follow up with daughter regarding insurance and bed. CM continuing to follow.
--- NOTE | 2017-02-28 20:55 | History & Physical ---
COLIN JONES 02/28/172053: General Information and HPI MD Statement: I have seen and personally examined LANI EDWARDS and documented this H&P. The patient is a 71 year old F who presented with a patient stated chief complaint of shortness of breath. Source of Information: patient, old records Exam Limitations: no limitations History of Present Illness: This is a 71-year-old female previous smoker (72 pack years, quit 10 years ago) with past medical history of COPD on 3 L of home oxygen, emphysema, hyperlipidemia, depression, hypertension, anxiety, osteoporosis, CVA and left endarterectomy was BIBA from home with chief complaint of worsening shortness of breath. Of note patient was recently discharged from [facility] 5 days ago after being treated for COPD exacerbation with steroids and antibiotics. She completed her 5 day course of antibiotics and steroids. Apparently, the patient was doing well 1 day prior to admission, when she started feeling short of breath, however she continued to take her inhalers. According to the visiting nurse who comes twice in a month, she doesn't look good this morning which prompted her to call ambulance and get her to the emergency room. The patient reported worsening shortness of breath for a day. Not associated with cough, chest pain, fever or chills. Denies any wheezing. He denies any sick contacts or travel history. Denies any headache, numbness, weakness, chest pain, racing of heart, nausea, vomiting, abdominal pain, change in bladder or bowel habits, peripheral edema. [id number] smoking history quitted 10 years ago, denies any alcohol abuse, any other drug abuse. She lives alone and a visiting nurse comes to her home twice in a month. At baseline she does have shortness of breath and she is on 3 L of home oxygen. Recently in last few years she says that the shortness of breath has been worsening and she needs help with most of her activities of daily living. She follows up with Dr. Slater as her pulmonary doctor. Bhargav Bain MD is her primary care. Allergies/Medications Allergies: Coded Allergies: oxycodone (KNOCKED ME OUT 01/13/16) Home Med list Albuterol Sulfate (Ventolin Hfa) 90 MCG HFA.AER.AD 2 PUF INH AD PRN COPD ( Reported) Alendronate Sodium 70 MG TABLET 1 TAB PO QMON BONES (Reported) in the morning, at least 30 minutes before the first food, beverage, or medication of the day Amlodipine Besylate 10 MG TABLET 1 TAB PO DAILY BP (Reported) Aripiprazole (Abilify) 10 MG TABLET 1 TAB PO DAILY MENTAL HEALTH (Reported) Clopidogrel Bisulfate (Clopidogrel) 75 MG TABLET 1 TAB PO DAILY BLOOD THINNER (Reported) Fluticasone Propionate (Flovent Hfa) 220 MCG AER.W.ADAP 2 PUFF INH BID COPD ( Reported) Paroxetine HCl 40 MG TABLET 1.5 TAB PO DAILY MENTAL HEALTH (Reported) Simvastatin (Simvastatin*) 40 MG TABLET 1 TAB PO QPM CHOLESTEROL (Reported) Solifenacin Succinate (Vesicare) 10 MG TABLET 1 TAB PO DAILY BLADDER ( Reported) Theophylline Anhydrous 300 MG TAB.ER.12H 1 TAB PO DAILY COPD (Reported) Umeclidinium Gravelly (Incruse Ellipta) 62.5 MCG/ACTUATION BLST.W.DEV 1 PUFF INH DAILY COPD (Reported) Compliance With Home Meds: GOOD Past History Travel History Traveled to [place] past 21 day No Medical History Neurological: NONE EENT: NONE Cardiovascular: hypertension, hyperlipidemia Respiratory: asthma, COPD, emphysema Gastrointestinal: NONE Hepatic: NONE Renal: NONE Musculoskeletal: NONE Psychiatric: anxiety Endocrine: NONE Blood Disorders: NONE Cancer(s): NONE UTILIZATION MANAGEMENT UM NURSE/Reproductive: NONE History of MRSA: No History of VRE: No History of CDIFF: No Surgical History Surgical History: non-contributory Past Family/Social History Family History Relations & Conditions if any MOTHER FH: emphysema Psychosocial History Who Do You Live With? self Services at Home: Home Health Aide, Oxygen, OT Smoking Status: Former Smoker ETOH Use: denies use Illicit Drug Use: denies illicit drug use Living Will? no Functional Ability ADLs Independent: dressing, eating, toileting, bathing. Ambulation: independent IADLs Needs Assist: shopping, housework, finances, food prep, transportation, medication admin. Review of Systems Review of Systems Constitutional: Denies: chills, diaphoresis, fever, malaise, weakness, unexplained weight loss. EENTM: Denies: see HPI. Cardiovascular: Denies: chest pain, edema, orthopena, palpitations, peripheral edema, syncope. Respiratory: Reports: short of breath. Denies: cough, hemoptysis, orthopnea, sputum production, stridor, wheezing. GI: Denies: abdominal pain, bloating, constipation, diarrhea, distention, melena, nausea, vomiting. Genitourinary: Denies: discharge, dysuria, frequency, hematuria. Musculoskeletal: Denies: back pain, gout, joint pain. Skin: Denies: see HPI. Neurological/Psychological: Denies: anxiety, ataxia, cognitive dysfunction, confusion, depressed, dementia, emotional problems, headache, numbness, tingling, tremors. Exam & Diagnostic Data Last 24 Hrs of Vital Signs/I&O Vital Signs Date Time Temp Pulse Resp B/P B/P Pulse O2 O2 Flow FiO2 Mean Ox Delivery Rate 03/01 0013 97.9 83 19 110/60 91 Nasal 2.0L Cannula 02/28 2355 96.6 86 20 168/80 94 Nasal 2.0L Cannula / 2252 96.8 80 18 156/67 95 Nasal 2.0L Cannula / 2110 97.0 93 18 142/65 96 Nasal 2.0L Cannula 02/28 1946 Nasal 2.0L Cannula 02/28 1926 97.1 73 16 138/60 98 Nasal 2.0L Cannula 05/ 1753 97.0 84 16 130/61 95 Nasal 2.0L Cannula 05/ 1709 96 Nasal 2.0L Cannula / 1439 96 Nasal 2.5L Cannula / 1329 98.6 83 18 132/89 97 Nasal 2.0L Cannula 02/28 1234 96 Nasal 2.5L Cannula 02/28 1048 100 Nasal 2.0L Cannula 02/28 1034 96.6 79 18 145/63 99 Nasal 2.0L Cannula Intake & Output 03/01 0800 05/03 0000 02 1600 Intake Total Output Total Balance Patient 47.174 kg 47.174 kg Weight Weight Reported by Patient Measurement Method Physical Exam General Appearance Alert, Oriented X3, Cooperative, No Acute Distress Skin No Rashes, No Breakdown HEENT Atraumatic, PERRLA, EOMI, Mucous Membr. moist/pink Neck Supple, No JVD Lymphatic Cervical nl Cardiovascular Regular Rate, Normal S1, Normal S2, No Murmurs Lungs decreased breath sounds b/l Abdomen Normal Bowel Sounds, Soft, No Tenderness Neurological Normal Speech, Normal Tone, Sensation Intact, Cranial Nerves 3-12 NL Extremities No Clubbing, No Cyanosis, No Edema Vascular Normal Pulses Last 24 Hrs of Labs/Chauncey: Laboratory Tests 02/28/17 1220: pH 7.41, pCO2 57 H, pO2 93, HCO3 35 H, ABG O2 Sat (Measured) 96.0, P-50 (Temp Corrected) Y, Carboxyhemoglobin 0.8 L, O2 Concentration % 2.5L, Temperature 96.6 L, O2 Delivery Method N/C, Phlebotomy Draw Site RIGHT RADIAL 02/28/17 1059: Magnesium 2.1 02/28/17 1059: Anion Gap 5, Estimated GFR > 60, BUN/Creatinine Ratio 32.5 H, Glucose 82, Calcium 10.1, Total Bilirubin 0.5, AST 26, ALT 36, Alkaline Phosphatase 77, Troponin I 0.02, Total Protein 6.0 L, Albumin 3.6, Globulin 2.4, Albumin/ Globulin Ratio 1.5, CBC w Diff NO MAN DIFF REQ, RBC 4.16 L, MCV 88.8, MCH 28.8, RDW 14.6 H, MPV 8.6, Gran % 82.6 H, Lymphocytes % 5.0 L, Monocytes % 10.0 H, Eosinophils % 2.3, Basophils % 0.1, Absolute Granulocytes 8.0 H, Absolute Lymphocytes 0.5 L, Absolute Monocytes 1.0 H, Absolute Eosinophils 0.2, Absolute Basophils 0, PUBS MCHC 32.4 L, Theophylline 6.2 L Assessment/Plan Assessment: This is a 71-year-old female previous smoker (72 pack years, quit 10 years ago) with past medical history of COPD on 3 L of home oxygen, emphysema, hyperlipidemia, depression, hypertension, anxiety, osteoporosis, CVA and left endarterectomy was BIBA from home with chief complaint of worsening shortness of breath. Of note patient was recently discharged from [facility] 5 days ago after being treated for COPD exacerbation with steroids and antibiotics. She completed her 5 day course of antibiotics and steroids. Vitals on admission-afebrile, heart rate 79, respiratory rate 18, blood pressure 145/63, saturating at 98% on 2 L oxygen. Pertinent labs on admission- CBC, BEP normal ABG-7.41/35/57/96% Chest x-ray was negative for any acute cardiopulmonary finding Problem list 1. Acute hypercarbic respiratory failure secondary to COPD exacerbation 2. Hypertension 3. Hyperlipidemia 4. Anxiety 5. Depression 6. Osteoporosis Problem #1 acute hypercarbic respiratory failure secondary to COPD exacerbation. * Admission to general medicine floor for further management of COPD * Continue to monitor vitals qshift. * Continue to maintain oxygen saturation greater than 92% all the time. * Provide supplemental oxygen * Continue TRC nebulizations. * Peak expiration flow. * She received IV steroids recently during her hospital stay 5 days ago. * Will start her on prednisone tapering doses 40 for 2 days, 30 for 2 days, 20 for 2 days, 10 for 2 days. * Patient just completed 5 day course of antibiotics * We'll send sputum cultures. * Chest x-ray did not show any acute pulmonary findings. * pulm consult with Dr stevens. Problem #2 history of hyperlipidemia. * Continue statin. Problem #3 history of hypertension. * Continue to monitor blood pressure. * Continue home medication amlodipine 10 mg daily. Problem #4 history of depression and anxiety. * Patient is on Lexapro, paroxetine, aripiprazole at home. * Continue all the home medications Osteoporosis She is on alendronate for osteoporosis Urine retention Vesicare for urinary issues Will give oxybutynin here in the hospital CVA She has history of CVA and left endarterectomy Takes clopidogrel at home Continue clopidogrel Mild/moderate and severe pain pathway ordered with Tylenol, mainly as the patient is allergic to oxycodone. Patient is full code. DVT prophylaxis with Lovenox. Mild/moderate and severe pain pathway ordered. Regular diet. As Ranked By This Provider Problem List: 1. COPD exacerbation 2. HTN (hypertension) 3. HLD (hyperlipidemia) 4. Anxiety and depression 5. Hypercapnic respiratory failure Core Measures/Miscellaneous Acute Coronary Syndrome ACS Diagnosis: No Cerebrovascular Accident CVA/TIA Diagnosis: No Congestive Heart Failure CHF Diagnosis: No Venous Thromboembolism VTE Risk Factors: Acute medical illness, Age > 40 No [facility] VTE prophylaxis d/t: No contraindications No VTE Pharm Prophylaxis d/t: No contraindications VTE Diagnosis: No VTE Type: NONE VTE Confirmed by (Test): NONE Severe Sepsis Severe Sepsis Present: No Septic Shock Septic Shock Present: No Miscellaneous Documentation Attending Case Discussed With: BYRON WARD MD Primary Care Physician: BHARGAV BAIN MD Patient sees these Specialists pulmonology Level of Patient Care: General Medicine PATRICIO LAZCANO 03/01/17 7830: Resident Review Statement Resident Statement: examined this patient, discussed with hospitality internship, agreed with hospitality internship, reviewed images Other Findings: Mrs. Edwards is a 71 year old female, recently discharged from [facility] emergency department for COPD exacerbation on 02/16/2017. She presents again today for complaints of dyspnea. She states that her visiting nurse called the ambulance as the patient did not well. Per the ED report, the visiting nurse found that the patient had completed her steroid taper andantibiotics earlier than outlined by her discharge summary (supposed to complete on 03/02/17). She has a PMH of emphysema on 3 L of oxygen at home, CVA status post left carotid endarterectomy 3 years, depression /anxiety and HTN/HLD. She follows up with Dr. Stevens in the outpt setting. Aside from dyspnea,she denies any fever/chills/cough, chest pain, palpitations, lightheadedness, dizziness, diplopia or tinnitus. She also denies any diaphoresis, nausea or vomiting, as well as constipation/diarrhea. She denies any recent travel or sick contacts Vitals temperature 96.6, heart rate 79, respiratory rate 18, blood pressure 145/ 63 saturating 99% on on 2 L. Physical exam as dictated above, with emphasis on decreased air entry bilaterally diffusely. Labs and chest x-ray as dictated above with note of chronic compensatory metabolic alkalosis, with elevated bicarbonate 42. Problem List/Assessment and Plan Emphysema failed outpt therapy * Pt failed outpt therapy due to confusion, and therefore could not be compliant with her medical regimen. * We will place the patient in observation on the general medicine floor and place her on by mouth steroids, a quick taper. * We will also give total resp care and restart the patients home inhalers. * She already completed zithro, so we will hold off for now. * continue O2 via nasal canula, and titrate down as tolerated with a goal oxygen saturation of greater than 92% with insentive spirometry * Please inform Dr. Stevens of the admission in the morning * The patient will most definitiely benefit from STR or a daily visiting nurse as she may not be able to take her daily meds at the moment (impaired ADLs) HLD/Anxiety and depression/Osteoporosis/Urinary incontinence * Continue home dose statin * Continue home dose paroxetine * We will replace vesicare with oxybutinin FULL CODE Heart healthy diet pain path lovenox for dvt ppx BYRON WARD 03/01/17 0314: Attending MD Review Statement Attending Statement Attending MD Statement: examined this patient, discuss w/resident/PA/BROADCAST CORRESPONDENT, agreed w/resident/PA/BROADCAST CORRESPONDENT, reviewed EMR data (avail), reviewed images, amended to note Attending Assessment/Plan: cc: Confusion, shortness of breath PMH: COPD on 3 L nasal cannula, HLD, depression, OA, HTN, CVA S/P left CEA Patient was recently admitted in hospital for COPD exacerbation and discharged on February 24 on tapering dose of steroids to be completed by 03/02 but when home health nurse went to check on her today, patient appeared confused. patient had finished the prednisone pills already. A home health nurse sent her again to ER for worsening confusion. Patient herself complains of worsening shortness of breath, but no increased cough, sputum production, fever, chills, chest tightness. Vitals: Unremarkable On exam: A O 3, cooperative, cachectic, mild respiratory distress, neck supple, JVD normal, no lymphadenopathy, mucosa moist, no focal neurological deficit, no dependent edema, no obvious skin rashes or inflammation CVS: S1-S2, RRR. RS: Diminished air entry bilaterally, prolonged expiration, no added sounds. Abdomen : Soft, NT, ND, bowel sounds present. Labs: CBC, BMP, LFT unremarkable except bicarbonate 42. AB.41/57/93/35 on 2 L nasal cannula. A and P Patient has chronic respiratory failure secondary to COPD, saturating well at 2- 3 L O2 nasal cannula, which is at her baseline, ABG appears improved with the recent treatment for COPD exacerbation. Patient has still diminished. Entry probably secondary to emphysematous changes, and prolonged expiration. But patient appears confused at times at home according to home health nurse, not able to take care of herself, finished medications earlier than expected. Patient's daughter is nurse as well who feels her to be unsafe at home. Patient does have history of depression. If confusion is related to major depression versus early dementia changes is unclear but would benefit from short-term rehabilitation + Chronic respiratory failure + History of COPD + Confusion + History of HTN, HLD, CVA - Place in observation general medicine - Contact case management regarding placement - Continue tapering doses of prednisone as discussed - Continue TRC, and when necessary albuterol nebulizations - OT PT evaluation - Continue on her home medications - Check U tox in a.m. - DVT prophylaxis, avoid opiates
--- NOTE | 2017-02-28 21:08 | NUR ---
PHARMACY CALLED FOR OXYBUTIN
--- NOTE | 2017-02-28 21:18 | NUR ---
PT MEDICATED WITH OXYBUTIN PER EMAR.
--- NOTE | 2017-02-28 21:39 | NUR ---
BED ASSIGNMENT [id number]
--- NOTE | 2017-02-28 22:00 | NUR ---
PT RESTING COMFORTABLY ON STRETCHER.
--- NOTE | 2017-02-28 22:45 | NUR ---
REPORT GIVEN TO DERIK MENA ON GEN MED.
--- NOTE | 2017-02-28 22:46 | NUR ---
UNABLE TO BOOK TRANSPORT, NO ANSWER.
--- NOTE | 2017-03-01 00:11 | NUR ---
NURSING NOTE: PT ARRIVED TO FLOOR VIA STRETCHER FROM ED. PT A&OX3, ON 2L NC, NO DISTRESS NOTED, IST @ BEDSIDE, PT STATES SHE HAS O2 AT HOME AND WEARS 2-3L, PT STATES SHE DOES EXPERIENCE EXERTIONAL SOB ON AMBULATION. VSS, AFEBRILE, DENIES CP. SKIN INTACT, NO BREAKDOWN NOTED, PT IS 23 HR OBSERVATION. INFORMATION PACKET GIVEN. PT SHOWN HOW TO USE CALL LIGHT SYSTEM. NO FURTHER ORDERS AT THIS TIME. WILL CONTINUE TO MONITOR.
[2017-03-01 00:13] VITALS: BP 110/60
[2017-03-01 06:58] VITALS: BP 112/60
--- NOTE | 2017-03-01 07:24 | PN- Housestaff ---
Subjective Follow-up For: COPD exacerbation Subjective: Pt states that she feels much better this AM. No acute overnight events or complaints. Pt pending placement in STR so she can be D/C. Currently in OBS. Review of Systems Constitutional: Reports: no symptoms. Denies: chills, fever, weakness. EENTM: Denies: blurred vision. Cardiovascular: Denies: chest pain, palpitations. Respiratory: Reports: cough, short of breath, wheezing. Gastrointestinal: Reports: no symptoms. Genitourinary: Reports: no symptoms. Musculoskeletal: Reports: no symptoms. Skin: Reports: no symptoms. Objective Last 24 Hrs of Vital Signs/I&O Vital Signs Date Time Temp Pulse Resp B/P B/P Pulse O2 O2 Flow FiO2 Mean Ox Delivery Rate 03/01 1350 98.1 83 18 112/60 03/01 1226 Nasal 2.0L Cannula 03/01 1030 98 Nasal 2.0L Cannula 03/01 0800 Nasal 2.0L Cannula 03/01 0658 98.1 83 18 112/60 93 Nasal 2.0L Cannula 03/01 0013 97.9 83 19 110/60 91 Nasal 2.0L Cannula 02/28 2355 96.6 86 20 168/80 94 Nasal 2.0L Cannula / 2252 96.8 80 18 156/67 95 Nasal 2.0L Cannula 02/28 2110 97.0 93 18 142/65 96 Nasal 2.0L Cannula 02/28 1946 Nasal 2.0L Cannula / 1926 97.1 73 16 138/60 98 Nasal 2.0L Cannula 02/28 1753 97.0 84 16 130/61 95 Nasal 2.0L Cannula 02/28 1709 96 Nasal 2.0L Cannula 02/28 1439 96 Nasal 2.5L Cannula Intake & Output 03/01 1600 05/03 0800 05/03 0000 Intake Total 240 Output Total 500 Balance -260 Intake, Oral 240 Number 1 Bowel Movements Output, Urine 500 Patient 47.174 kg Weight Physical Exam General Appearance: Alert, Oriented X3, Cooperative, No Acute Distress Skin: No Significant Lesion HEENT: Atraumatic, PERRLA, EOMI, Mucous Membr. moist/pink Neck: Supple Cardiovascular: Regular Rate, Normal S1, Normal S2, No Murmurs Lungs: decreased air mvmt bilat. Creackles present at bases. no wheezes Abdomen: Soft, No Tenderness Neurological: Normal Speech Current Medications: Current Medications Sig/Oskar Start time Last Medication Dose Route Stop Time Status Admin Acetaminophen 650 MG Q6P PRN 02/28 211 AC PO Acetaminophen 1,000 MG Q6P PRN 02/28 2115 AC IV Albuterol Sulfate 3 ML TID 03/01 1045 AC 03/01 INH 1046 Albuterol Sulfate 2 PUF Q4P PRN 02/28 2300 AC INH Albuterol Sulfate 3 ML ONCE ONE 02/28 1700 DC 05 INH 02/28 1701 1706 Albuterol Sulfate 3 ML ONCE ONE 02/28 1430 DC 02/28 INH 02/28 1431 1438 Alendronate Sodium 70 MG QMON 03/06 0700 AC PO Amlodipine Besylate 10 MG DAILY 03/01 1000 AC 03/01 PO 1109 Aripiprazole 10 MG DAILY 03/01 1000 AC 03/01 PO 1108 Atorvastatin Calcium 40 MG 1700 03/01 1700 AC PO Bisacodyl 10 MG ONCE ONE 03/01 1345 DC 03/01 MD 03/01 1346 1339 Clopidogrel Bisulfate 75 MG DAILY 03/01 1000 AC 03/01 PO 1109 Enoxaparin Sodium 0 .STK-MED ONE 02/289 DC SC Enoxaparin Sodium 40 MG DAILY 02/28 205 AC 03/01 SC 1111 Fluticasone 4 PUF BID 02/28 2257 AC 03/01 Propionate INH 1113 Ibuprofen 600 MG Q6P PRN 02/28 2115 AC PO Ipratropium Wh[place] 2.5 ML TID 03/01 1045 AC 03/01 INH 1045 Oxybutynin Chloride 2.5 MG FOUR TIMES A DAY 02/28 2100 AC 03/01 PO 1339 Paroxetine HCl 60 MG DAILY 03/01 1000 AC 03/01 PO 1109 Patient Medication 1 ED .STK-MED ONE 03/01 1358 DC Teaching ED 03/01 1359 Prednisone 10 MG DAILY 03/04 1000 AC PO 03/04 1001 Prednisone 20 MG DAILY 03/03 1000 AC PO 03/03 1001 Prednisone 30 MG DAILY 03/02 1000 AC PO 03/02 1001 Prednisone 40 MG DAILY 03/01 1000 DC 03/01 PO 03/01 1001 1109 Prednisone 0 .STK-MED ONE 02/28 2359 DC PO Prednisone 50 MG ONCE ONE 02/28 2130 DC 02/28 PO 02/28 2131 235 Theophylline 300 MG DAILY 03/01 1000 AC 03/01 PO 1110 Assessment/Plan Assessment: This is a 71-year-old female with PMH emphysema on 3 L of home oxygen, previous smoker (72 pack years, quit 10 years ago), hyperlipidemia, hypertension, depression presenting for CC worsening shortness of breath and found to be in hypercarbic respiratory failure while at the emergency department. Admitted to [facility] for managment of COPD exacerbation. PLAN Acute hypercarbic respiratory failure 2/2 to COPD exacerbation: Admission Chest x-ray did not show any acute pulmonary findings. Pt on home O2 requirement of 2- 3 litres. Satting well. * Continue to maintain oxygen saturation greater than 92% all the time. * Continue TRC nebulizations * Peak expiration flow * PO steroids 40mg--> with rapid taper on D/C * Con't Theophylline * Pulm consult hyperlipidemia. * Continue statin. * history of depression and anxiety. * Cont' Lexapro, paroxetine, aripiprazole at home. Note! Pt is on clopidogrel: Pt cannot give pertinent hx on why she started medication. But upon further investigation and calling PCP she has hx of stroke and has had end-arterectomies. * Continue clopidogrel full code. DVT prophylaxis with Lovenox. Regular diet. Problem List: Problem List: 1. COPD exacerbation Pain Ratin Pain Location: none Pain Goal: Remain pain free Pain Plan: none Tomorrow's Labs & Rationales: cbc bep DVT/Prophylaxis: pharmacological
[2017-03-01 07:51] LABS: ABSOLUTE BASOPHIL COUNT 0 /CUMM (0.0-0.2); ABSOLUTE EOSINOPHIL COUNT 0 /CUMM (0.0-0.7); ABSOLUTE GRANULOCYTE CT 8.1 /CUMM (1.4-6.5); ABSOLUTE LYMPH COUNT 0.2 /CUMM (1.2-3.4); ABSOLUTE MONOCYTE COUNT 0.1 /CUMM (0.10-0.60); BASOPHIL % 0 % (0.0-2.0); EOSINOPHIL % 0.4 % (0-5); HEMATOCRIT 39.1 % (37-47); MEAN CORPUSCULAR HGB CONC 32.5 G/DL (33.0-37.0); MEAN PLATELET VOLUME 9.5 FL (7.4-10.4); PLATELET COUNT 293 /CUMM (130-400); RBC DISTRIBUTION WIDTH 14.9 % (11.5-14.5); WHITE BLOOD CELL COUNT 8.4 /CUMM (4.8-10.8)
--- NOTE | 2017-03-01 08:39 | Discharge Summary ---
Visit Information Visit Dates Admission Date: 02/28/17 Discharge Date: 03/01/17 Hospital Course Course Attending Physician: BYRON WARD MD Primary Care Physician: ODELL LONGORIA,Flowers Hospital Course: This is a 71 Y/OF with PMH COPD on 3 L nasal cannula, HLD, depression, OA, HTN, CVA S/P left CEA Patient was recently admitted in hospital for COPD exacerbation and discharged on February 24 on tapering dose of steroids to be completed by 03/02 but when home health nurse went to check on her on 02/28 patient appeared confused. patient had finished the prednisone pills already. A home health nurse sent her again to ER for worsening confusion. Patient herself complained of worsening shortness of breath, but no increased cough, sputum production, fever, chills, chest tightness. Vitals: Unremarkable On exam: A O 3, cooperative, cachectic, mild respiratory distress, neck supple, JVD normal, no lymphadenopathy, mucosa moist, no focal neurological deficit, no dependent edema, no obvious skin rashes or inflammation CVS: S1-S2, RRR. RS: Diminished air entry bilaterally, prolonged expiration, no added sounds. Abdomen : Soft, NT, ND, bowel sounds present. Labs: CBC, BMP, LFT unremarkable except bicarbonate 42. AB.41/57/93/35 on 2 L nasal cannula. Thepatient was treatd for the following problems in the hospital: 1Acute confusion of unkown aetiology and likely from old age. No hypercarbia seen on labs or ABGs 2.Chronic respiratory failure 3 History of COPD on 3L nc @home 4. History of HTN, 5.H/O HLD, 6.H/O CVA The patient was maintained in observation for 23 hrs .Shwe was assessed for IADL and assessment for independedent living. No major changes were made for her pulmonary sx. She is being dsicharged with quick steroid taper as follows 30 mg on 03/02 20 mg on 03/03 10 mg on 03/04 and then stop. She should c/w her other inhalers and theophyliine No other changes were made to the patient chronic meds. She should also follow up with [facility] in 1 week of discharge. She was evlauated by the PT who recommedned that she is weaka and needs 24 hour care and PT for her IADL. Thsi was also the wish for the daughter Allergies: Coded Allergies: oxycodone (KNOCKED ME OUT 01/13/16) Pertinent Lab Results: Laboratory Tests 03/01 02/28 02/28 0650 1220 1059 Blood Gas pH (7.35 - 7.45 PH) 7.41 pCO2 (35 - 45 TORR) 57 H pO2 (80 - 100 TORR) 93 HCO3 (21 - 28 MEQ/L) 35 H ABG O2 Sat (Measured) (>96.0 %) 96.0 P-50 (Temp Corrected) Y Carboxyhemoglobin (1.5 - 5.0 %) 0.8 L O2 Concentration % 2.5L Temperature (97.0 - 100.0 FARH) 96.6 L O2 Delivery Method N/C Chemistry Sodium (137 - 145 mmol/L) 140 Potassium (3.5 - 5.1 mmol/L) 4.4 Chloride (98 - 107 mmol/L) 94 L Carbon Dioxide (22 - 30 mmol/L) 40 H Anion Gap (5 - 16) 6 BUN (7 - 17 mg/dL) 26 H Creatinine (0.5 - 1.0 mg/dL) 0.9 Estimated GFR (>60 ml/min) > 60 BUN/Creatinine Ratio (7 - 25 %) 28.9 H Magnesium (1.6 - 2.3 mg/dL) 2.1 Hematology CBC w Diff NO MAN DIFF REQ WBC (4.8 - 10.8 /CUMM) 8.4 RBC (4.20 - 5.40 /CUMM) 4.40 Hgb (12.0 - 16.0 G/DL) 12.7 Hct (37 - 47 %) 39.1 MCV (81.0 - 99.0 FL) 89.0 MCH (27.0 - 31.0 PG) 29.0 RDW (11.5 - 14.5 %) 14.9 H Plt Count (130 - 400 /CUMM) 293 MPV (7.4 - 10.4 FL) 9.5 Gran % (42.2 - 75.2 %) 96.3 H Lymphocytes % (20.5 - 51.1 %) 2.4 L Monocytes % (1.7 - 9.3 %) 0.9 L Eosinophils % (0 - 5 %) 0.4 Basophils % (0.0 - 2.0 %) 0 L Absolute Granulocytes (1.4 - 6.5 /CUMM) 8.1 H Absolute Lymphocytes (1.2 - 3.4 /CUMM) 0.2 L Absolute Monocytes (0.10 - 0.60 /CUMM) 0.1 L Absolute Eosinophils (0.0 - 0.7 /CUMM) 0 Absolute Basophils (0.0 - 0.2 /CUMM) 0 PUBS MCHC (33.0 - 37.0 G/DL) 32.5 L Miscellaneous Phlebotomy Draw Site RIGHT RADIAL Toxicology Urine Opiates Screen (>2000 NG/ML) < 100.00 Methadone Screen (>300 NG/ML) 72 Barbiturate Screen (>200 NG/ML) < 60 Ur Phencyclidine Scrn (>25 NG/ML) < 6.00 Amphetamines Screen (>1000 NG/ML) < 100 U Benzodiazepines Scrn (>200 NG/ML) < 85 Urine Cocaine Screen (>300 NG/ML) < 50 Urine Cannabis Screen (>50 NG/ML) < 5.00 02/28 1059 Chemistry Sodium (137 - 145 mmol/L) 143 Potassium (3.5 - 5.1 mmol/L) 3.8 Chloride (98 - 107 mmol/L) 96 L Carbon Dioxide (22 - 30 mmol/L) 42 H Anion Gap (5 - 16) 5 BUN (7 - 17 mg/dL) 26 H Creatinine (0.5 - 1.0 mg/dL) 0.8 Estimated GFR (>60 ml/min) > 60 BUN/Creatinine Ratio (7 - 25 %) 32.5 H Glucose (65 - 99 mg/dL) 82 Calcium (8.4 - 10.2 mg/dL) 10.1 Total Bilirubin (0.2 - 1.3 mg/dL) 0.5 AST (14 - 36 U/L) 26 ALT (9 - 52 U/L) 36 Alkaline Phosphatase (<127 U/L) 77 Troponin I (< 0.11 ng/ml) 0.02 Total Protein (6.3 - 8.2 g/dL) 6.0 L Albumin (3.5 - 5.0 g/dL) 3.6 Globulin (1.9 - 4.2 gm/dL) 2.4 Albumin/Globulin Ratio (1.1 - 2.2 %) 1.5 Hematology CBC w Diff NO MAN DIFF REQ WBC (4.8 - 10.8 /CUMM) 9.7 RBC (4.20 - 5.40 /CUMM) 4.16 L Hgb (12.0 - 16.0 G/DL) 12.0 Hct (37 - 47 %) 36.9 L MCV (81.0 - 99.0 FL) 88.8 MCH (27.0 - 31.0 PG) 28.8 RDW (11.5 - 14.5 %) 14.6 H Plt Count (130 - 400 /CUMM) 299 MPV (7.4 - 10.4 FL) 8.6 Gran % (42.2 - 75.2 %) 82.6 H Lymphocytes % (20.5 - 51.1 %) 5.0 L Monocytes % (1.7 - 9.3 %) 10.0 H Eosinophils % (0 - 5 %) 2.3 Basophils % (0.0 - 2.0 %) 0.1 Absolute Granulocytes (1.4 - 6.5 /CUMM) 8.0 H Absolute Lymphocytes (1.2 - 3.4 /CUMM) 0.5 L Absolute Monocytes (0.10 - 0.60 /CUMM) 1.0 H Absolute Eosinophils (0.0 - 0.7 /CUMM) 0.2 Absolute Basophils (0.0 - 0.2 /CUMM) 0 PUBS MCHC (33.0 - 37.0 G/DL) 32.4 L Toxicology Theophylline (10.0 - 20.0 uG/mL) 6.2 L Disposition Summary Disposition Principal Diagnosis: COPD on 3L NC Additional Diagnosis: 2.Chronic respiratory failure 3 History of COPD on 3L nc @home 4. History of HTN, 5.H/O HLD, 6.H/O CVA Discharge Disposition: SNF Discharge Instructions General Discharge Information Code Status: Full Code Patient's Diet: as Tolerated Patient's Activity: as tolerated Follow-Up Instructions/Appts: F.u With PCP in 1 week of discharge Medications at Discharge Discharge Medications: Continue taking these medications: Paroxetine HCl (Paroxetine HCl) 40 MG TABLET 1.5 Tablet ORAL DAILY Comments: Last Taken: 02/24/17 Time: 0930 AM Clopidogrel Bisulfate (Clopidogrel) 75 MG TABLET 1 Tablet ORAL DAILY Qty = 90 Simvastatin (Simvastatin*) 40 MG TABLET 1 Tablet ORAL Every night Qty = 30 Fluticasone Propionate (Flovent Hfa) 220 MCG AER.W.ADAP 2 PUFF Inhale through mouth TWICE DAILY Qty = 12 Aripiprazole (Abilify) 10 MG TABLET 1 Tablet ORAL DAILY Qty = 30 Amlodipine Besylate (Amlodipine Besylate) 10 MG TABLET 1 Tablet ORAL DAILY Qty = 90 Alendronate Sodium (Alendronate Sodium) 70 MG TABLET 1 Tablet ORAL EVERY MONDAY Qty = 12 Instructions: in the morning, at least 30 minutes before the first food, beverage, or medication of the day Albuterol Sulfate (Ventolin Hfa) 90 MCG HFA.AER.AD 2 Puff Inhale through mouth As Directed as needed for COPD Qty = 18 Theophylline Anhydrous (Theophylline Anhydrous) 300 MG TAB.ER.12H 1 Tablet ORAL DAILY Qty = 90 Solifenacin Succinate (Vesicare) 10 MG TABLET 1 Tablet ORAL DAILY Qty = 90 Umeclidinium [place] (Incruse Ellipta) 62.5 MCG/ACTUATION BLST.W.DEV 1 PUFF Inhale through mouth DAILY Qty = 30 Start taking the following new medications: Prednisone (Prednisone) 10 MG TABLET 1 Tablet ORAL SEE INSTRUCTIONS Qty = 7 No Refills Instructions: TAKE 30 MG ON 03/02 TAKE 20 MG ON 03/03 TAKE 10 MG ON 03/04 Copies To: BHARGAV BAIN MD
[2017-03-01 09:11] LABS: GRANULOCYTE % 96.3 % (42.2-75.2)
--- NOTE | 2017-03-01 10:35 | Cons- Pulmonary ---
BRANDON LONGORIA,NILDA 03/01/17 1034: General Information and HPI Consulting Request Date of Consult: 03/01/17 Requested By: DR. FOSS Reason for Consult: SOB, COPD EXACERBATION Source of Information: patient, old records Exam Limitations: no limitations History of Present Illness: Ms. Edwards is a 71-year-old lady who is medical issues include COPD with chronic 2 L home oxygen dependence, hypertension, hyperlipidemia, carotid endarterectomy , previous TIA, osteoporosis that presented to the emergency room for evaluation of shortness of breath. Patient was admitted at [facility] on February 22 for suspected COPD exacerbation and discharged on February 24. She states that the day after her discharge she felt "okay". Over the course of last couple of days she has been having increased dyspnea and she has felt the need to increase her baseline oxygen requirements from 2 L to 4 L. She also merits a dry cough. Denies any fevers or chills. She was evaluated by her visiting nurse at home yesterday who recommended that she come to the emergency room because she was found to be in respiratory distress. At present she is resting comfortably in her hospital bed, states that the steroid therapy is helping her. Her oxygen requirements and back to baseline. Upon discharge on February 24, she was given a steroid taper and Zithromax which she completed. In the emergency room her blood gas was suggestive of hypercarbia. Allergies/Medications Allergies: Coded Allergies: oxycodone (KNOCKED ME OUT 01/13/16) Review of Systems Review of Systems Constitutional: Reports: see HPI. Past History Travel History Traveled to [place] past 21 day No Medical History Blood Transfusion Hx: No Neurological: TIA EENT: NONE Cardiovascular: hypertension, hyperlipidemia Respiratory: COPD, emphysema Gastrointestinal: NONE Hepatic: NONE Renal: NONE Musculoskeletal: NONE Psychiatric: anxiety Endocrine: NONE Blood Disorders: NONE Cancer(s): NONE KILN CHARGER/Reproductive: NONE Surgical History Surgical History: non-contributory Family History Relations & Conditions If Any: MOTHER FH: emphysema Psychosocial History Who Do You Live With? self Services at Home: Home Health Aide, Oxygen, OT Smoking Status: Former Smoker ETOH Use: denies use Illicit Drug Use: denies illicit drug use Living Will? no Functional Ability ADLs Independent: dressing, eating, toileting, bathing. Ambulation: independent IADLs Needs Assist: shopping, housework, finances, food prep, transportation, medication admin. ECHO Results (as available) Date of last Echo 02/19/15 EF% 65 Exam & Diagnostic Data Last 24 Hrs of Vital Signs/I&O Vital Signs Date Time Temp Pulse Resp B/P B/P Pulse O2 O2 Flow FiO2 Mean Ox Delivery Rate 03/01 0800 Nasal 2.0L Cannula 03/01 0658 98.1 83 18 112/60 93 Nasal 2.0L Cannula 03/01 0013 97.9 83 19 110/60 91 Nasal 2.0L Cannula 02/28 2355 96.6 86 20 168/80 94 Nasal 2.0L Cannula 02/28 2252 96.8 80 18 156/67 95 Nasal 2.0L Cannula 02/28 2110 97.0 93 18 142/65 96 Nasal 2.0L Cannula 02/28 1946 Nasal 2.0L Cannula 02/28 1926 97.1 73 16 138/60 98 Nasal 2.0L Cannula 02/28 1753 97.0 84 16 130/61 95 Nasal 2.0L Cannula 02/28 1709 96 Nasal 2.0L Cannula 02/28 1439 96 Nasal 2.5L Cannula 02/28 1329 98.6 83 18 132/89 97 Nasal 2.0L Cannula 02/28 1234 96 Nasal 2.5L Cannula 02/28 1048 100 Nasal 2.0L Cannula Intake & Output 03/01 1600 03/01 0800 03/01 0000 Intake Total 240 Output Total 500 Balance -260 Intake, Oral 240 Output, Urine 500 Patient 104 lb Weight Physical Exam General Appearance: well developed/nourished, no apparent distress, alert, awake , comfortable Head: atraumatic, normal appearance Eyes: Bilateral: normal appearance, PERRL, EOMI. Ears, Nose, Throat: normal pharynx, normal ENT inspection Respiratory: normal breath sounds, chest non-tender, no respiratory distress, no wheezing appreciated Cardiovascular: regular rate/rhythm Gastrointestinal: normal bowel sounds, soft, non-tender Back: normal inspection, normal range of motion Last 48 Hrs of Labs/Chauncey: Laboratory Tests 03/01/17 0650: Anion Gap 6, Estimated GFR > 60, BUN/Creatinine Ratio 28.9 H, CBC w Diff NO MAN DIFF REQ, RBC 4.40, MCV 89.0, MCH 29.0, RDW 14.9 H, MPV 9.5, Gran % 96.3 H, Lymphocytes % 2.4 L, Monocytes % 0.9 L, Eosinophils % 0.4, Basophils % 0 L, Absolute Granulocytes 8.1 H, Absolute Lymphocytes 0.2 L, Absolute Monocytes 0.1 L, Absolute Eosinophils 0, Absolute Basophils 0, PUBS MCHC 32.5 L, Urine Opiates Screen < 100.00, Methadone Screen 72, Barbiturate Screen < 60, Ur Phencyclidine Scrn < 6.00, Amphetamines Screen < 100, U Benzodiazepines Scrn < 85, Urine Cocaine Screen < 50, Urine Cannabis Screen < 5.00 02/28/17 1220: pH 7.41, pCO2 57 H, pO2 93, HCO3 35 H, ABG O2 Sat (Measured) 96.0, P-50 (Temp Corrected) Y, Carboxyhemoglobin 0.8 L, O2 Concentration % 2.5L, Temperature 96.6 L, O2 Delivery Method N/C, Phlebotomy Draw Site RIGHT RADIAL 02/28/17 1059: Magnesium 2.1 02/28/17 1059: Anion Gap 5, Estimated GFR > 60, BUN/Creatinine Ratio 32.5 H, Glucose 82, Calcium 10.1, Total Bilirubin 0.5, AST 26, ALT 36, Alkaline Phosphatase 77, Troponin I 0.02, Total Protein 6.0 L, Albumin 3.6, Globulin 2.4, Albumin/ Globulin Ratio 1.5, CBC w Diff NO MAN DIFF REQ, RBC 4.16 L, MCV 88.8, MCH 28.8, RDW 14.6 H, MPV 8.6, Gran % 82.6 H, Lymphocytes % 5.0 L, Monocytes % 10.0 H, Eosinophils % 2.3, Basophils % 0.1, Absolute Granulocytes 8.0 H, Absolute Lymphocytes 0.5 L, Absolute Monocytes 1.0 H, Absolute Eosinophils 0.2, Absolute Basophils 0, PUBS MCHC 32.4 L, Theophylline 6.2 L Diagnostic Data CXR Results PATIENT: LANI EDWARDS PRESENT AGE: 71 PATIENT ACCOUNT NO: [id number] : 45 LOCATION: [facility] ORDERING PHYSICIAN: MARÍA VILLA MD SERVICE DATE: 02/28/17 EXAM TYPE: RAD - XRY-PORTABLE CHEST XRAY EXAMINATION: XR PORTABLE CHEST CLINICAL INFORMATION: Shortness of breath COMPARISON: 02/22/2017 TECHNIQUE: Portable frontal view of the chest was obtained. FINDINGS: No focal consolidation, pulmonary edema, or pleural effusion. Stable cardiomediastinal silhouette. IMPRESSION: Unremarkable examination. No change. DICTATED BY: CÉSAR ESPINOZA MD DATE/TIME DICTATED:02/28/171138 CHIEF LOCK OPERATOR:KAYLA DATE/TIME TRANSCRIBED:02/28/171138 CONFIDENTIAL, DO NOT COPY WITHOUT APPROPRIATE AUTHORIZATION. <Electronically signed in Other Vendor System> SIGNED BY: CÉSAR ESPINOZA MD 12/16 3520 Assessment/Plan Impression/Plan: Assessment- 1. Hypercarbic respiratory failure, resolved 2. COPD exacerbation, patient has a known history of 2 L oxygen dependent COPD 3. History of hypertension 4. History of hyperlipidemia 5. History of CVA Plan- - Continue by mouth prednisone taper - Monitor Accu-Cheks while on steroids - Keep oxygen requirements greater than 92% - Sputum culture if able to expectorate - Continue DuoNeb 3 times a day while awake - Continue theophylline tab 300 mg by mouth daily - Continue albuterol HFA 2 puffs every 4 when necessary - Continue fluticasone 2 puffs twice a day - She is amenable to pulmonary rehabilitation upon discharge, please have case management discuss options with the patient regarding the same. Her daughter, who is an RN, is interested in a STR well known to her. - Continue all supportive care - DVT prophylaxis at all times Consult Acknowledgment - Thank you for your consult request. Sheryl VACA MD 03/01/17 1401: General Information and HPI Allergies/Medications Home Med List: Albuterol Sulfate (Ventolin Hfa) 90 MCG HFA.AER.AD 2 PUF INH AD PRN COPD ( Reported) Alendronate Sodium 70 MG TABLET 1 TAB PO QMON BONES (Reported) in the morning, at least 30 minutes before the first food, beverage, or medication of the day Amlodipine Besylate 10 MG TABLET 1 TAB PO DAILY BP (Reported) Aripiprazole (Abilify) 10 MG TABLET 1 TAB PO DAILY MENTAL HEALTH (Reported) Clopidogrel Bisulfate (Clopidogrel) 75 MG TABLET 1 TAB PO DAILY BLOOD THINNER (Reported) Fluticasone Propionate (Flovent Hfa) 220 MCG AER.W.ADAP 2 PUFF INH BID COPD ( Reported) Paroxetine HCl 40 MG TABLET 1.5 TAB PO DAILY MENTAL HEALTH (Reported) Prednisone 10 MG TABLET 1 TAB PO SEE ADMIN CRITERIA COPD TAKE 30 MG ON 03/02 TAKE 20 MG ON 03/03 TAKE 10 MG ON 03/04 Simvastatin (Simvastatin*) 40 MG TABLET 1 TAB PO QPM CHOLESTEROL (Reported) Solifenacin Succinate (Vesicare) 10 MG TABLET 1 TAB PO DAILY BLADDER ( Reported) Theophylline Anhydrous 300 MG TAB.ER.12H 1 TAB PO DAILY COPD (Reported) Umeclidinium [place] (Incruse Ellipta) 62.5 MCG/ACTUATION BLST.W.DEV 1 PUFF INH DAILY COPD (Reported) Assessment/Plan Other Findings/Comments: I have personally seen and examined the patient, and agree with the resident's detailed assessment as above. The patient is a 71-year-old female known to me from outpatient visits. She has a history of advanced COPD on 2 L of oxygen continuously, hypertension, hyperlipidemia, CEA, previous TIA, osteoporosis, and pulmonary nodules. The patient was recently discharged following a short treatment for acute exacerbation of COPD. She was evaluated by her visiting nurse at home yesterday who recommended the patient return to the ED due to respiratory distress. In the ED, the patient was found to have increased shortness of breath and was admitted for an acute exacerbation of COPD. She had an ABG that showed compensated respiratory acidosis. Her chest x-ray was unremarkable without any significant change. Laboratory studies were reviewed. The patient was admitted with chronic hypercarbic respiratory failure, and acute exacerbation of COPD. She was started on an oral prednisone taper, oxygen saturation monitoring, duonebs, and TRC. She has been continued on her usual theophylline dose. We will check a sputum culture if able. Continue DVT prophylaxis at all times. I agree with the plan for short-term rehabilitation. Of note, the patient had her most recent CT of the chest on 01/02/2017 that demonstrated moderate centrilobular emphysema with no significant change and a 0.8 x 0.4 solid noncalcified nodule in the right upper lobe compared to 2015. A repeat CT scan in 6 months has been ordered. There were no other interval changes demonstrated. Thank you for the consult. Please call at any time with any questions or issues. Consult Acknowledgment - Thank you for your consult request.
[2017-03-01] MEDS ORDERED: PREDNISONE10 M2 PO (12:41)
--- NOTE | 2017-03-01 12:42 | Patient Discharge Instructions ---
Discharge Instructions General Discharge Information You were seen/treated for: CONFUSION AND WORSEING SHORTNESS OF BREATH Special Instructions: PLEASE F/U WITH YOUR PCP IN 1 WEEK PLEASE F/U8 [address] VACA IN1 WEEK Acute Coronary Syndrome Inclusion Criteria At DC or during hospital stay patient has or had the following: ACS DIAGNOSIS No Discharge Core Measures Meds if any: Prescribed or Continued at Discharge Meds if any: NOT Prescribed or Continued at Discharge Congestive Heart Failure Inclusion Criteria At DC or during hospital stay patient has or had the following: CHF DIAGNOSIS No Discharge Core Measures Meds if any: Prescribed or Continued at Discharge Meds if any: NOT Prescribed or Continued at Discharge Cerebrovascular accident Inclusion Criteria At DC or during hospital stay patient has or had the following: CVA/TIA Diagnosis No Discharge Core Measures Meds if any: Prescribed or Continued at Discharge Meds if any: NOT Prescribed or Continued at Discharge Venous thromboembolism Inclusion Criteria VTE Diagnosis No VTE Type NONE VTE Confirmed by (Test) NONE Discharge Core Measures - Per Current guidelines, there needs to be overlap - treatment for the first 5 days of Warfarin therapy. - If discharged on Warfarin prior to 5 days of - overlap therapy, the patient will need to be - assessed for post discharge needs including - *Post discharge parental anticoagulation - *Warfarin and/or parental anticoagulation education - *Follow up date to check INR post discharge At least 5 days overlap therapy as Inpatient No Meds if any: Prescribed or Continued at Discharge Note: Overlap Therapy is Warfarin and Anticoagulant Meds if any: NOT Prescribed or Continued at Discharge
[2017-03-01 13:50] VITALS: BP 112/60
== END 2017-03-01 14:49 ==
LOC: ERH 10:29 → 2NB 20:11 → ERHI 20:11 → ENRESERV 21:34 → 2NB 03-01 00:06 → ENPENDDIS 03-01 12:56 → 2NB 03-01 14:49
PROVIDERS: Emergency Medicine; Internal Medicine Cardiovascular Disease; ADMIT Internal Medicine
DX: J44.1 Chronic obstructive pulmonary disease with (acute) exacerbation (principal); J96.10 Chronic respiratory failure, unspecified whether with hypoxia or hypercapnia; I10 Essential (primary) hypertension; E78.5 Hyperlipidemia, unspecified; Z86.73 Personal history of transient ischemic attack (TIA), and cerebral infarction without residual deficits; Z87.891 Personal history of nicotine dependence
CPT/HCPCS: 1263; 1328; 1530; 1748; 6040; 80307; 82436; 93005; 93010; 96372; 97110-GO; 97161-GP; 97166-GO; G0378; G8978-GP; G8979-GP; J0401; J1650; J7512

== ENCOUNTER 2018-01-31 11:35 | Inpatient (IN) | payer OTHER, MEDICARE ==
[~2018-01-31] VITALS: Ht 152.4 cm; Wt 45.4 kg
[~2018-01-31 11:35] MED LIST changes: +ABILIFY10 M1 PO; +ALENDRONATE SOD70 M2 PO; +CLOPIDOGREL75 M1 PO; +FLOVENT HFA12 GM INH; +INCRUSE ELLI62.5 MCG INH; +NORVASC5 M1 PO; +OXYBUTYNIN CHLOR5 M2 PO; +PREDNISONE50 M1 PO; +SIMVASTATIN20 M2 PO; +SPIRIVA18 MCG INH; +THEOPHYLLINE A300 MG PO; +VENTOLIN HFA18 GM INH; +VESICARE10 MG PO; +VITAMIN B-121000 MC3 PO; +ZITHROMAX250 M2 PO
--- NOTE | 2018-01-31 12:01 | ED DYSPNEA/ASTHMA COMPLAINT ---
History of Present Illness General Chief Complaint: Dyspnea (COPD, CHF, Other) Stated Complaint: JOSE VELÁSQUEZ. SOB Source: patient, family, old records Exam Limitations: clinical condition Allergies Coded Allergies: oxycodone (KNOCKED ME OUT 01/13/16) Reconcile Medications Albuterol Sulfate (Ventolin Hfa) 90 MCG HFA.AER.AD 2 PUF INH AD PRN COPD ( Reported) Amlodipine Besylate (Norvasc) 5 MG TABLET 1 TAB PO DAILY HEART (Reported) Aripiprazole (Abilify) 10 MG TABLET 1 TAB PO DAILY MENTAL HEALTH (Reported) Clopidogrel Bisulfate (Clopidogrel) 75 MG TABLET 1 TAB PO DAILY BLOOD THINNER (Reported) Fluticasone Propionate (Flovent Hfa) 220 MCG AER.W.ADAP 2 PUFF INH BID COPD ( Reported) Mirtazapine 30 MG TABLET 1 TAB PO QPM SLEEP (Reported) Paroxetine HCl 40 MG TABLET 1.5 TAB PO DAILY MENTAL HEALTH (Reported) Simvastatin (Simvastatin*) 20 MG TABLET 1 TAB PO QPM CHOLESTEROL (Reported) Solifenacin Succinate (Vesicare) 10 MG TABLET 1 TAB PO DAILY BLADDER ( Reported) Tiotropium [place] (Spiriva) 18 MCG CAP.W.DEV 1 CAP INH DAILY COPD (Reported) Triage Nurses Notes Reviewed? yes Onset: Abrupt Duration: day(s): Timing: recent history Severity: severe Activities at Onset: none HPI: 72-year-old female comes into emergency room with complaints of shortness of breath getting progressively worse. Patient is on 3 L of oxygen chronically. She denies any fever or cough. Denies any vomiting. Denies any chest pain. Per family short of breath with any exertion. She comes in for further evaluation. Denies any other associated symptoms. (Louis Ma) Vital Signs & Intake/Output Vital Signs & Intake/Output Vital Signs Date Time Temp Pulse Resp B/P B/P Pulse O2 O2 Flow FiO2 Mean Ox Delivery Rate 01/31 1721 98.1 92 22 172/70 94 Nasal 2.0L Cannula 01/31 1404 97.6 76 20 163/71 100 Nasal 3.0L Cannula 01/31 1220 98 Nasal 2.0L Cannula 01/31 1206 100 Nasal 3.0L Cannula 01/31 1205 97.8 72 20 174/75 100 Nasal 3.0L Cannula (Ila LONGORIA,Colby Yancey) Past History Travel History Traveled to [place] past 21 day No Medical History Any Pertinent Medical History? 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 No (Louis Ma) Review of Systems Review of Systems Constitutional: Reports: see HPI. EENTM: Reports: no symptoms. Respiratory: Reports: see HPI. Cardiovascular: Reports: no symptoms. GI: Reports: no symptoms. Genitourinary: Reports: no symptoms. Musculoskeletal: Reports: no symptoms. Skin: Reports: no symptoms. Neurological/Psychological: Reports: no symptoms. Hematologic/Endocrine: Reports: no symptoms. Immunologic/Allergic: Reports: no symptoms. All Other Systems: Reviewed and Negative (Louis Ma) Physical Exam Physical Exam General Appearance: moderate distress, thin Head: atraumatic Eyes: Bilateral: normal appearance. Ears, Nose, Throat: normal ENT inspection, hearing grossly normal Neck: normal inspection Respiratory: decreased breath sounds (diffuse), respiratory distress (moderate) Cardiovascular: regular rate/rhythm Extremities: normal inspection, no edema Neurologic/Psych: awake, alert Skin: intact, normal color Core Measures ACS in differential dx? Yes CVA/TIA Diagnosis No Sepsis Present: No Sepsis Focused Exam Completed? No (Louis Ma) Progress Differential Diagnosis: asthma, AMI, bronchitis, costochondritis, CHF, COPD, musculoskeletal pain, pericarditis, pulmonary embolism, pneumonia, pneumothorax Diagnostic Imaging: Viewed by Me: Radiology Read. Discussed w/RAD: Radiology Read. Radiology Impression: PATIENT: LANI MUHAMMAD PRESENT AGE: 72 PATIENT ACCOUNT NO: [id number] : 45 LOCATION: [facility] ORDERING PHYSICIAN: Louis PATTON SERVICE DATE: 01/31/18 EXAM TYPE: RAD - XRY-PORTABLE CHEST XRAY EXAMINATION: XR PORTABLE CHEST CLINICAL INFORMATION: Shortness of breath COMPARISON: 10/13/2017 TECHNIQUE: Portable frontal view of the chest was obtained. FINDINGS: Lung volumes are symmetric. No focal consolidation is seen. No evidence of pneumothorax, pleural effusion, or pulmonary edema. The cardiac silhouette remains prominent, similar to prior. Calcification is present at the aortic arch. No acute osseous findings are seen. IMPRESSION: No acute cardiopulmonary findings. DICTATED BY: Mynor Braun MD DATE/TIME DICTATED:01/31/181329 WIRELESS STORE MANAGER:KAYLA DATE/TIME TRANSCRIBED:01/31/181329 CONFIDENTIAL, DO NOT COPY WITHOUT APPROPRIATE AUTHORIZATION. <Electronically signed in Other Vendor System> SIGNED BY: Mynor Braun MD 01/31/181335 Initial ED EKG: normal sinus rhythm, rate (77) (Louis Ma) Plan of Care: Orders Procedure Date/time Status Heart Healthy Diet 02/01 B Active Heart Healthy Diet 01/31 D Complete Weight 01/31 1749 Active Vital Signs 01/31 1749 Active Teach/Educate 01/31 1749 Active Pain Treatment and Response 01/31 1749 Active Nutritional Intake, Monitor 01/31 1749 Active Isolation 01/31 1749 Active Intake & Output 01/31 1749 Active Patient Care Conference 01/31 1749 Active Activity/Ambulation 01/31 1749 Active ED Holding Orders 01/31 1638 Active Admit to inpatient 01/31 1638 Active Vital Signs 01/31 1638 Active Code Status 01/31 1638 Active Patient Data 01/31 1610 Active Intake & Output 01/31 1203 Active Telemetry/Examining Officer 01/31 1201 Complete URINALYSIS 01/31 1201 Complete TROPONIN LEVEL 01/31 1201 Complete COMPREHENSIVE METABOLIC PANEL 01/31 1201 Complete CBC WITHOUT DIFFERENTIAL 01/31 1201 Complete EKG 01/31 1137 Active Current Medications Sig/Oskar Start time Last Medication Dose Stop Time Status Admin Atorvastatin Calcium 10 MG 1700 02/01 1700 UNVr (Lipitor) Amlodipine Besylate 5 MG DAILY 02/01 1000 UNVr (Norvasc) Aripiprazole 10 MG DAILY 02/01 1000 UNVr (Abilify) Clopidogrel Bisulfate 75 MG DAILY 02/01 1000 UNVr (Plavix) Paroxetine HCl 60 MG DAILY 02/01 1000 UNVr (Paxil) Fluticasone 2 PUF BID 01/31 2200 UNVr Propionate (Flovent) Mirtazapine 30 MG QPM 01/31 2200 UNVr (Remeron) Oxybutynin Chloride 2.5 MG BID 01/31 2200 UNVr (Ditropan 2.5MG Tab(1/2 of a 5mg tab)) Laboratory Tests 01/31/18 1343: Urine Color YEL, Urine Clarity CLEAR, Urine pH 6.0, Ur Specific Hilbert 1.010, Urine Protein TRACE H, Urine Ketones NEG, Urine Nitrite NEG, Urine Bilirubin NEG, Urine Urobilinogen 0.2, Ur Leukocyte Esterase NEG, Ur Microscopic SEDIMENT EXAMINED, Ur Epithelial Cells RARE, Urine Bacteria FEW H, Urine Hemoglobin NEG, Urine Glucose NEG 01/31/18 1210: Anion Gap 8, Estimated GFR > 60, BUN/Creatinine Ratio 21.4, Glucose 92, Calcium 9.9, Total Bilirubin 0.5, AST 18, ALT 16, Alkaline Phosphatase 95, Troponin I < 0.01, Total Protein 6.1 L, Albumin 3.7, Globulin 2.4, Albumin/Globulin Ratio 1.5, CBC w Diff MAN DIFF ORDERED, RBC 3.49 L, MCV 89.1, MCH 29.4, MCHC 33.0, RDW 13.2, MPV 8.8, Gran % 83.8 H, Lymphocytes % 6.4 L, Monocytes % 7.3, Eosinophils % 2.1, Basophils % 0.4, Absolute Granulocytes 4.4, Absolute Lymphocytes 0.3 L, Absolute Monocytes 0.4, Absolute Eosinophils 0.1, Absolute Basophils 0, Platelet Estimate VERIFIED BY SMEAR, Basophilic Stippling 1+ (Ila LONGORIA,Colby Yancey) Departure Departure Disposition: STILL A PATIENT Condition: Stable Clinical Impression Primary Impression: COPD exacerbation Referrals: Fernando LONGORIA,Zina (PCP/Family) Departure Forms: Customer Survey General Discharge Information Admission Note Spoke With: Tiki Granger MD Documentation of Exam: Documentation of any treatments & extenuating circumstances including Concerns Regarding Discharge (functional status, medication knowledge or non-compliance, living conditions, etc.) that warrant an admission rather than observation: IV steroids. Nebulizer. Pulmonary consult. Patient profoundly short of breath upon ambulation. She lives by herself. I feel she will require greater than 48 hours of care. (Louis Ma) PA/SENIOR TECHNICAL PROJECT MANAGER Co-Sign Statement Statement: ED Attending supervision documentation- [X] I saw and evaluated the patient. I have also reviewed all the pertinent lab results and diagnostic results. I agree with the findings and the plan of care as documented in the PA's/SENIOR TECHNICAL PROJECT MANAGER's documentation. Patient presents for evaluation of worsening shortness of breath over the past 3-4 days. Physical examination reveals a conversant and comfortable appearing woman on oxygen cannula at 3 L ( her usual flow rate). Patient evaluated after initial treatment. [] I have reviewed the ED Record and agree with the PA's/SENIOR TECHNICAL PROJECT MANAGER's documentation. [] Additions or exceptions (if any) to the PAs/SENIOR TECHNICAL PROJECT MANAGER's note and plan are summarized below: [] (Ila LONGORIA,Colby Yancey) PA/SENIOR TECHNICAL PROJECT MANAGER Co-Sign Statement Statement: ED Attending supervision documentation- [] I saw and evaluated the patient. I have also reviewed all the pertinent lab results and diagnostic results. I agree with the findings and the plan of care as documented in the PA's/SENIOR TECHNICAL PROJECT MANAGER's documentation. [] I have reviewed the ED Record and agree with the PA's/SENIOR TECHNICAL PROJECT MANAGER's documentation. [] Additions or exceptions (if any) to the PAs/SENIOR TECHNICAL PROJECT MANAGER's note and plan are summarized below: [] I saw and personally examined the patient and I agree with the PAs evaluation. She is in mild respiratory distress with scant expiratory wheezing. (Colby Rodriguez DO) Critical Care Note Critical Care Note Critical Care Time: non-applicable (Louis Ma)
[2018-01-31 12:33] LABS: ABSOLUTE BASOPHIL COUNT 0 /CUMM (0.0-0.2); ABSOLUTE EOSINOPHIL COUNT 0.1 /CUMM (0.0-0.7); ABSOLUTE GRANULOCYTE CT 4.4 /CUMM (1.4-6.5); ABSOLUTE LYMPH COUNT 0.3 /CUMM (1.2-3.4); ABSOLUTE MONOCYTE COUNT 0.4 /CUMM (0.10-0.60); BASOPHIL % 0.4 % (0.0-2.0); EOSINOPHIL % 2.1 % (0-5); GRANULOCYTE % 83.8 % (42.2-75.2); HEMATOCRIT 31.1 % (37-47); MEAN CORPUSCULAR HGB 29.4 PG (27.0-31.0); MEAN CORPUSCULAR VOLUME 89.1 FL (81.0-99.0); MEAN PLATELET VOLUME 8.8 FL (7.4-10.4); PLATELET COUNT 241 /CUMM (130-400); RBC DISTRIBUTION WIDTH 13.2 % (11.5-14.5); RED BLOOD CELL CT 3.49 /CUMM (4.20-5.40); WHITE BLOOD CELL COUNT 5.3 /CUMM (4.8-10.8)
--- NOTE | 2018-01-31 13:36 | RADIOLOGY REPORT ---
EXAMINATION: XR PORTABLE CHEST CLINICAL INFORMATION: Shortness of breath COMPARISON: 10/13/2017 TECHNIQUE: Portable frontal view of the chest was obtained. FINDINGS: Lung volumes are symmetric. No focal consolidation is seen. No evidence of pneumothorax, pleural effusion, or pulmonary edema. The cardiac silhouette remains prominent, similar to prior. Calcification is present at the aortic arch. No acute osseous findings are seen. IMPRESSION: No acute cardiopulmonary findings.
[2018-01-31] MEDS ORDERED: MIRTAZAPINE30 M2 PO (14:19)
--- NOTE | 2018-01-31 16:15 | History & Physical ---
Lázaro LONGORIA,Bisi 01/31/18 1614: General Information and HPI MD Statement: I have seen and personally examined LANI MUHAMMAD and documented this H&P. The patient is a 72 year old F who presented with a patient stated chief complaint of [SOB]. Source of Information: patient, old records Exam Limitations: no limitations History of Present Illness: 72years old femal with PMH of COPD(emphysema) on chronic 3 L home oxygen dependence, hypertension, hyperlipidemia, stage I diastolic heart failure carotid endarterectomy, previous TIA, osteoporosis that presented to the emergency room for evaluation of shortness of breath. patient comes to the ED complaining of progressively worsening shortness of breath for 34 days. Patient was not able to do her activities of daily living because she was not able to move due to shortness of breath. She had to lay down on the couch all day. She also noticed mild dry cough and blurred vision and poor appetite. She also reports palpitation for a few days. The patient noticed that she has been using her inhalers more frequently over the past month. She denies recent travel however she is not sure if she had any recent sick contacts, patient lives at home alone and has a visiting nurse who might have been sick. She denies any fever, chills, runny nose, sore throat, nausea, vomiting, diarrhea or constipation. The patient reports being compliant with her home meds however she stopped using the nebulizers by herself because she does not like the way it feels. The patient was last admitted to [facility] on February/2017 for COPD exacerbation and chronic respiratory failure and received a steroid taper. Her roll handler is Dr. Slater the patient cannot remember when was the last time she saw her Last echo on January 2015 showed ejection fraction more than 65%, mild concentric left ventricular hypertrophy, stage I diastolic heart failure, mild aortic regurg, mild tricuspid regurg, pulmonary artery pressure in the upper limit of normal The patient is an ex-smoker she quit smoking 10 years ago she used to smoke 2 packs of cigarettes daily for around 45 years, occasional alcohol use, no recreational drug use Patient lives home alone and has a visiting nurse, she walks independently ED course: Vital signs: Blood pressure 174/75, pulse 72, temperature 97.8, respiratory 20, pulse ox 100 on 3 L nasal cannula Labs: CBCs showed hemoglobin 10.3, hematocrit 31.1, white blood cells 5.3, BP shows sodium 141, potassium 4.3, BUN 15, creatinine 0.7, urine showed trace protein and few bacteria Allergies/Medications Allergies: Coded Allergies: oxycodone (KNOCKED ME OUT 01/13/16) Home Med list Albuterol Sulfate (Ventolin Hfa) 90 MCG HFA.AER.AD 2 PUF INH AD PRN COPD ( Reported) Amlodipine Besylate (Norvasc) 5 MG TABLET 1 TAB PO DAILY HEART (Reported) Aripiprazole (Abilify) 10 MG TABLET 1 TAB PO DAILY MENTAL HEALTH (Reported) Clopidogrel Bisulfate (Clopidogrel) 75 MG TABLET 1 TAB PO DAILY BLOOD THINNER (Reported) Fluticasone Propionate (Flovent Hfa) 220 MCG AER.W.ADAP 2 PUFF INH BID COPD ( Reported) Mirtazapine 30 MG TABLET 1 TAB PO QPM SLEEP (Reported) Paroxetine HCl 40 MG TABLET 1.5 TAB PO DAILY MENTAL HEALTH (Reported) Simvastatin (Simvastatin*) 20 MG TABLET 1 TAB PO QPM CHOLESTEROL (Reported) Solifenacin Succinate (Vesicare) 10 MG TABLET 1 TAB PO DAILY BLADDER ( Reported) Tiotropium [place] (Spiriva) 18 MCG CAP.W.DEV 1 CAP INH DAILY COPD (Reported) Compliance With Home Meds: GOOD Past History Travel History Traveled to [place] past 21 day No Medical History Neurological: TIA EENT: NONE Cardiovascular: hypertension, hyperlipidemia Respiratory: COPD, emphysema Gastrointestinal: NONE Hepatic: NONE Renal: NONE Musculoskeletal: NONE Psychiatric: anxiety Endocrine: NONE Blood Disorders: NONE Cancer(s): NONE 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 self Services at Home: Home Health Aide, Oxygen, OT Smoking Status: Former Smoker (quit 10 years ago, 90 PY) ETOH Use: denies use Illicit Drug Use: denies illicit drug use Living Will? no Functional Ability ADLs Independent: dressing, eating, toileting, bathing. Ambulation: independent IADLs Needs Assist: shopping, housework, finances, food prep, transportation, medication admin. Review of Systems Review of Systems Constitutional: Denies: diaphoresis, fever, malaise, weakness. Cardiovascular: Reports: palpitations. Denies: chest pain, edema, orthopena, peripheral edema, syncope. Respiratory: Reports: cough, short of breath. Denies: hemoptysis, orthopnea, sputum production, stridor, wheezing. GI: Denies: abdominal pain, bloating, constipation, distention, melena, nausea, vomiting. Genitourinary: Denies: discharge, dysuria, frequency, hematuria, hesitation. Skin: Denies: no symptoms. Neurological/Psychological: Denies: no symptoms. Hematologic/Endocrine: Denies: no symptoms. Exam & Diagnostic Data Last 24 Hrs of Vital Signs/I&O Vital Signs Date Time Temp Pulse Resp B/P B/P Pulse O2 O2 Flow FiO2 Mean Ox Delivery Rate 01/31 1721 98.1 92 22 172/70 94 Nasal 2.0L Cannula 01/31 1404 97.6 76 20 163/71 100 Nasal 3.0L Cannula 01/31 1220 98 Nasal 2.0L Cannula 01/31 1206 100 Nasal 3.0L Cannula 01/31 1205 97.8 72 20 174/75 100 Nasal 3.0L Cannula Intake & Output 01/31 1600 01/31 0800 01/31 0000 Intake Total Output Total Balance Patient 99 lb 15.99 oz Weight Weight Reported by Patient Measurement Method Physical Exam General Appearance Alert, Oriented X3, Cooperative, Mild Distress HEENT Atraumatic, PERRLA, EOMI, Mucous Membr. moist/pink Neck Supple, No JVD Cardiovascular Normal S1, Normal S2, No Murmurs Lungs decreased air entery in both lung rae Abdomen Normal Bowel Sounds, Soft, No Tenderness Neurological Normal Speech Extremities No Clubbing, No Cyanosis, No Edema Last 24 Hrs of Labs/Chauncey: Laboratory Tests 01/31/18 1343: Urine Color YEL, Urine Clarity CLEAR, Urine pH 6.0, Ur Specific [place] 1.010, Urine Protein TRACE H, Urine Ketones NEG, Urine Nitrite NEG, Urine Bilirubin NEG, Urine Urobilinogen 0.2, Ur Leukocyte Esterase NEG, Ur Microscopic SEDIMENT EXAMINED, Ur Epithelial Cells RARE, Urine Bacteria FEW H, Urine Hemoglobin NEG, Urine Glucose NEG 01/31/18 1210: Anion Gap 8, Estimated GFR > 60, BUN/Creatinine Ratio 21.4, Glucose 92, Calcium 9.9, Total Bilirubin 0.5, AST 18, ALT 16, Alkaline Phosphatase 95, Troponin I < 0.01, Total Protein 6.1 L, Albumin 3.7, Globulin 2.4, Albumin/Globulin Ratio 1.5, CBC w Diff MAN DIFF ORDERED, RBC 3.49 L, MCV 89.1, MCH 29.4, MCHC 33.0, RDW 13.2, MPV 8.8, Gran % 83.8 H, Lymphocytes % 6.4 L, Monocytes % 7.3, Eosinophils % 2.1, Basophils % 0.4, Absolute Granulocytes 4.4, Absolute Lymphocytes 0.3 L, Absolute Monocytes 0.4, Absolute Eosinophils 0.1, Absolute Basophils 0, Platelet Estimate VERIFIED BY SMEAR, Basophilic Stippling 1+ Diagnostic Data EKG Results Normal sinus rhythm, regular, 77, WA 164, QTc 403, right axis deviation CXR Results Chest x-ray no acute cardiopulmonary findings Assessment/Plan Assessment: 72years old femal with PMH of COPD(emphysema) on chronic 3 L home oxygen dependence, hypertension, hyperlipidemia, stage I diastolic heart failure carotid endarterectomy, previous TIA, osteoporosis that presented to the emergency room for evaluation of shortness of breath. patient comes to the ED complaining of progressively worsening shortness of breath for 34 days. Most likely her shortness of breath is due to COPD exacerbation Problem list: COPD exacerbation Chronic medical conditions including hypertension, hyperlipidemia, stage I diastolic heart failure Plan Admit to general medicine floor Continue IV Solu-Medrol 40 mg every 12 TRC/nebs Start po ZithromaxQTC 403 Oxygen to keep oxygen saturation above 92 Pulmonary consult appreciated in the a.m. Vitals every shift Continue home meds including clopidogrel, simvastatin, amlodipine, fluoxetine DNR/DNI Heart healthy diet DVT prophylaxis with subcutaneous heparin As Ranked By This Provider Problem List: 1. COPD exacerbation Core Measures/Misc (07/16) Acute Coronary Syndrome ACS Diagnosis: No Congestive Heart Failure Congestive Heart Failure Diagnosis No Cerebrovascular Accident CVA/TIA Diagnosis: No VTE (View Protocol) VTE Risk Factors Age>40 No Mechanical VTE Prophylaxis d/t N/A MechProphylax Ordered No VTE Pharm Prophylaxis d/t NA PharmProphylax ordered Sepsis (View protocol) Sepsis Present: No Tiki Granger 01/31/18 4935: Attending MD Review Statement Attending Statement Attending MD Statement: examined this patient, discuss w/resident/PA/RECYCLING ATTENDANT, agreed w/resident/PA/RECYCLING ATTENDANT, reviewed EMR data (avail) Attending Assessment/Plan: 71 Y/OF with PMH COPD( emphysema) on 3 L nasal cannula, HLD, depression, OA, HTN , CVA S/P left CEA , Ex smoker- quit more than 10 years ago( smoked 2PPD since age 16), who lives by herself. Pt presented to the ER with c/c of sob for 3-4 days and in ER was found to be in acute copd exacerbation. Pt was given iv solumedrol and nebs in ER and is being admitted for further management. Pt says over the last 3-4 days her sob was getting worse and she could not ambulate because of that. Pt denies any chest pain, nausea, vomiting or diaphoresis. Pts Flight/Transport Nurse is Dr Stevens. Pt feeling better now since she got the treatment. Acute copd exac with chronic resp failure - will cont with iv steroids 40mg q12h , nebs per resp and will put her on zithromax. will check on EKG to make sure her QTc is normal range. Will cont oxygen to maintain sats around 90-92%. d/w pt the care plan. Moody LONGORIA,[facility] 01/31/18 1805: Resident Review Statement Resident Statement: examined this patient, discussed with recruitment internship, agreed with recruitment internship Other Findings: The patient is a 72-year-old with a past medical history of COPD (emphysema) on chronic 3 L home oxygen, hypertension, hyperlipidemia, stage I diastolic heart failure carotid endarterectomy, previous TIA, osteoporosis that presented to the emergency room for evaluation of shortness of breath. She presented to the ED complaining of progressively worsening shortness of breath for 34 days. She also complained of intermittent Non productive cough. She denies recent travel however she is not sure if she had any recent sick contacts, patient lives at home alone and has a visiting nurse who might have been sick. She denies any fever, chills, runny nose, sore throat, nausea, vomiting, diarrhea or constipation. She was hypoxic upon ambulation in the ER to 83%.Vital signs in the ER showed a Temp of 97.8 F, pulse of 72 bpm, BP 174/75 mmhg, PO2 100 % on 3 L of O2. Physical exam at presentation General Appearance Alert, Oriented X3, Cooperative, Mild Distress HEENT Atraumatic, PERRLA, EOMI, Mucous Membr. moist/pink Neck Supple, No JVD Cardiovascular Normal S1, Normal S2, No Murmurs Lungs decreased air entery in both lung rae Abdomen Normal Bowel Sounds, Soft, No Tenderness Neurological Normal Speech Extremities No Clubbing, No Cyanosis, No Edema Labs on presentation: Na 141, K 4.3, Cl 93, Creat 0.7. CBC: WBC 5.3, Hb 10.3, Platelets 241 Chest X ray: No acute cardiopulmonary abnormality EKG :Normal sinus rhythm, regular, 77, WA 164, QTc 403, right axis deviation Assessment 1. COPD exacerbation-Emphysema 2. Hypertension 3. History of TIA 4. History of stage I diastolic heart failure 5. Depression Plan * Admit to Gen Med * patient received IV solumedrol 125 mg once in the ER. Will continue IV solumedrol 40 mg Q 12 hours in the AM * IV azithromycin 500 mg once today then continue with PO azithromycin 250 mg daily in the AM * TRC evaluation for nebulizer therapy * Continue oxygen by nasal canula to keep O2 sat > 92% * Pulmonology consult in the AM * Continue clopidogrel, simvastatin * Continue aripiprazole, paroxetine and mirtazapine * DVT prophylaxis with ALPS * Patient is DNR/DNI
--- NOTE | 2018-01-31 16:41 | Admission Certification ---
Admission Certification Certification Statement - As attending physician, I certify that at the time of - admission, based on clinical presentation, severity of - symptoms, need for further diagnostic testing and - therapeutic interventions, and risk of adverse outcomes - without in-hospital treatment, in my clinical assessment, - this patient requires an acute hospital stay for a minimum - of two nights or longer. I have also considered psychsocial - factors such as support system, advanced age, financial - issues, cognitive issues, and failed out-patient treatments, - past re-admission history, safety of patient, and lack of - compliance as applicable. Specific rationale supporting this admission is: acute copd exacerbation and acute on chronic resp failure
[2018-01-31 17:52] VITALS: BP 122/54
[2018-01-31 21:38] VITALS: BP 110/62
--- NOTE | 2018-02-01 06:46 | PN- Housestaff ---
See Addendum Subjective Follow-up For: COPD exacerbation Subjective: No overnight events. Patient was admitted yesterday with SOB. She has had a URI recently, no sick contacts, lives alone in apartment and walks independently normally. She can walk about 50 feet at baseline, now gets SOB with any exertion. She feels better than when she was admitted, with no SOB at rest now. No CP, abd pain, N/V/D. She is followed by Dr. Stevens, last saw her a year ago , on 3L O2 at baseline. Review of Systems Constitutional: Reports: no symptoms. EENTM: Reports: no symptoms. Cardiovascular: Reports: no symptoms. Respiratory: Reports: see HPI. Gastrointestinal: Reports: no symptoms. Genitourinary: Reports: no symptoms. Musculoskeletal: Reports: no symptoms. Skin: Reports: no symptoms. Neurological/Psychological: Reports: no symptoms. Hematologic/Endocrine: Reports: no symptoms. Immunologic/Allergic: Reports: no symptoms. Objective Last 24 Hrs of Vital Signs/I&O Vital Signs Date Time Temp Pulse Resp B/P B/P Pulse O2 O2 Flow FiO2 Mean Ox Delivery Rate 02/01 0000 94 Nasal 3.0L Cannula 01/31 2138 98.2 81 20 110/62 97 01/31 1943 Nasal 2.0L Cannula 01/31 1752 93 Nasal 3.0L Cannula 01/31 1752 98.3 92 16 122/54 93 Nasal 3.0L Cannula 01/31 1721 98.1 92 22 172/70 94 Nasal 2.0L Cannula 01/31 1404 97.6 76 20 163/71 100 Nasal 3.0L Cannula 01/31 1220 98 Nasal 2.0L Cannula 01/31 1206 100 Nasal 3.0L Cannula 01/31 1205 97.8 72 20 174/75 100 Nasal 3.0L Cannula Intake & Output 02/01 0800 02/01 0000 01/31 1600 Intake Total 240 240 Output Total Balance 240 240 Intake, Oral 240 240 Patient 45.359 kg 45.359 kg Weight Weight Reported by Patient Reported by Patient Measurement Method Physical Exam General Appearance: Alert, Oriented X3, Cooperative, No Acute Distress, thin Cardiovascular: Regular Rate, Normal S1, Normal S2 Lungs: Mild crackles/rhonci at base Abdomen: Normal Bowel Sounds, Soft, No Tenderness Extremities: No Edema, Normal Pulses, No Tenderness/Swelling Current Medications: Current Medications Sig/Oskar Start time Last Medication Dose Route Stop Time Status Admin Acetaminophen 650 MG Q6P PRN 01/31 1800 AC PO Albuterol Sulfate 3 ML TID 01/31 2200 AC 01/31 INH 2023 Albuterol Sulfate 3 ML ONCE ONE 01/31 1215 DC 01/31 INH 01/31 1216 1216 Amlodipine Besylate 5 MG DAILY 02/01 1000 AC PO Aripiprazole 10 MG DAILY 02/01 1000 AC PO Atorvastatin Calcium 10 MG 1700 02/01 1700 AC PO Azithromycin 250 MG DAILY 02/01 1000 AC PO Azithromycin 500 MG ONCE ONE 01/31 1815 DC 01/31 Dextrose/Water 250 ML IV 01/31 1914 2033 Clopidogrel Bisulfate 75 MG DAILY 02/01 1000 AC PO Fluticasone 2 PUF BID 01/31 2200 AC 01/31 Propionate INH 2042 Ipratropium [place] 2.5 ML ONCE ONE 01/31 1215 DC 01/31 INH 01/31 1216 1216 Methylprednisolone 40 MG Q12 02/01 1000 AC IV 02/06 2201 Methylprednisolone 0 .STK-MED ONE 01/31 1223 DC .ROUTE Methylprednisolone 125 MG ONCE ONE 01/31 1200 DC 01/31 IV 01/31 1201 1218 Mirtazapine 30 MG QPM 01/31 2200 AC 01/31 PO 2042 Oxybutynin Chloride 2.5 MG BID 01/31 2200 AC 01/31 PO 2041 Paroxetine HCl 60 MG DAILY 02/01 1000 AC PO Last 24 Hrs of Lab/Chauncey Results Last 24 Hrs of Labs/Mics: Laboratory Tests 01/31/18 1343: Urine Color YEL, Urine Clarity CLEAR, Urine pH 6.0, Ur Specific [place] 1.010, Urine Protein TRACE H, Urine Ketones NEG, Urine Nitrite NEG, Urine Bilirubin NEG, Urine Urobilinogen 0.2, Ur Leukocyte Esterase NEG, Ur Microscopic SEDIMENT EXAMINED, Ur Epithelial Cells RARE, Urine Bacteria FEW H, Urine Hemoglobin NEG, Urine Glucose NEG 01/31/18 1210: Anion Gap 8, Estimated GFR > 60, BUN/Creatinine Ratio 21.4, Glucose 92, Calcium 9.9, Total Bilirubin 0.5, AST 18, ALT 16, Alkaline Phosphatase 95, Troponin I < 0.01, Total Protein 6.1 L, Albumin 3.7, Globulin 2.4, Albumin/Globulin Ratio 1.5, CBC w Diff MAN DIFF ORDERED, RBC 3.49 L, MCV 89.1, MCH 29.4, MCHC 33.0, RDW 13.2, MPV 8.8, Gran % 83.8 H, Lymphocytes % 6.4 L, Monocytes % 7.3, Eosinophils % 2.1, Basophils % 0.4, Absolute Granulocytes 4.4, Absolute Lymphocytes 0.3 L, Absolute Monocytes 0.4, Absolute Eosinophils 0.1, Absolute Basophils 0, Platelet Estimate VERIFIED BY SMEAR, Basophilic Stippling 1+ Assessment/Plan Assessment: The patient is a 72-year-old with a past medical history of COPD on chronic 3 L home oxygen followed by Dr. Stevens, hypertension, hyperlipidemia, HFpEF, s/p carotid endarterectomy, TIA, and osteoporosis who is here with a COPD exacerbation. Problem list: 1. COPD exacerbation 2. Chronic respiratory failure 3. Normocytic anemia #COPD exacerbation: Patient presented with history of shortness of breath and recent URI that caused her to come in for further evaluation. She is followed by Dr. Stevens but has not seen her in about a year. She says that this morning she feels better than when she came in but she is still having some shortness of breath with exertion. -Methylprednisolone 40 mg every 24 hours with taper -Azithromycin -Albuterol -Fluticasone -Pulmonology consult -PT consult -Oxygen therapy -TRC nebs -Nutrition consult -CT chest without contrast #Normocytic anemia: Likely anemia of chronic disease -Continue to monitor #Chronic medical problems: -Continue other home medications DVT prophylaxis with heparin Heart healthy diet DNR/DNI Problem List: 1. COPD exacerbation Pain Ratin Pain Location: no Pain Goal: Remain pain free Pain Plan: see a/p Tomorrow's Labs & Rationales: no
[2018-02-01 06:53] VITALS: BP 138/58
--- NOTE | 2018-02-01 08:23 | Cons- Pulmonary ---
General Information and HPI Consulting Request Date of Consult: 02/01/18 Requested By: Shukri Reason for Consult: Exacerbation of COPD History of Present Illness: Patient is 72-year-old with severe COPD chronic hypoxic respiratory failure chronic compensated hypercarbic respiratory failure admitted with increased shortness of breath. She denies chest pain she has little way of sputum but mild increasing cough. Of note CT scan December 2016 showed a new nodule for which follow-up was to have been performed 6 months later. Patient feels improved with IV steroids Zithromax and nebulized bronchodilators Allergies/Medications Allergies: Coded Allergies: oxycodone (KNOCKED ME OUT 01/13/16) Home Med List: Albuterol Sulfate (Ventolin Hfa) 90 MCG HFA.AER.AD 2 PUF INH AD PRN COPD ( Reported) Amlodipine Besylate (Norvasc) 5 MG TABLET 1 TAB PO DAILY HEART (Reported) Aripiprazole (Abilify) 10 MG TABLET 1 TAB PO DAILY MENTAL HEALTH (Reported) Clopidogrel Bisulfate (Clopidogrel) 75 MG TABLET 1 TAB PO DAILY BLOOD THINNER (Reported) Fluticasone Propionate (Flovent Hfa) 220 MCG AER.W.ADAP 2 PUFF INH BID COPD ( Reported) Mirtazapine 30 MG TABLET 1 TAB PO QPM SLEEP (Reported) Paroxetine HCl 40 MG TABLET 1.5 TAB PO DAILY MENTAL HEALTH (Reported) Simvastatin (Simvastatin*) 20 MG TABLET 1 TAB PO QPM CHOLESTEROL (Reported) Solifenacin Succinate (Vesicare) 10 MG TABLET 1 TAB PO DAILY BLADDER ( Reported) Tiotropium [place] (Spiriva) 18 MCG CAP.W.DEV 1 CAP INH DAILY COPD (Reported) Review of Systems Review of Systems Constitutional: Denies: chills, fever. Cardiovascular: Denies: chest pain, edema. Respiratory: Reports: cough, short of breath. Denies: hemoptysis, sputum production, wheezing. GI: Denies: abdominal pain, diarrhea, melena. 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 Home Who Do You Live With? self Services at Home: Home Health Aide, Oxygen, OT Smoking Status: Former Smoker ETOH Use: denies use Illicit Drug Use: denies illicit drug use Living Will? no Functional Ability ADLs Independent: dressing, eating, toileting, bathing. Ambulation: independent IADLs Needs Assist: shopping, housework, finances, food prep, transportation, medication admin. Exam & Diagnostic Data Last 24 Hrs of Vital Signs/I&O Vital Signs Date Time Temp Pulse Resp B/P B/P Pulse O2 O2 Flow FiO2 Mean Ox Delivery Rate 02/01 0817 95 Nasal 3.0L Cannula 02/01 0653 97.3 86 18 138/58 97 02/01 0000 94 Nasal 3.0L Cannula 01/31 2138 98.2 81 20 110/62 97 01/31 1943 Nasal 2.0L Cannula 01/31 1752 93 Nasal 3.0L Cannula 01/31 1752 98.3 92 16 122/54 93 Nasal 3.0L Cannula 01/31 1721 98.1 92 22 172/70 94 Nasal 2.0L Cannula 01/31 1404 97.6 76 20 163/71 100 Nasal 3.0L Cannula 01/31 1220 98 Nasal 2.0L Cannula 01/31 1206 100 Nasal 3.0L Cannula 01/31 1205 97.8 72 20 174/75 100 Nasal 3.0L Cannula Intake & Output 02/01 1600 02/01 0800 02/01 0000 Intake Total 240 240 Output Total Balance 240 240 Intake, Oral 240 240 Patient 100 lb Weight Weight Reported by Patient Measurement Method Oxygen saturation 3 L 95% exam of her chest shows markedly diminished breath sounds are no wheezes or crackles cardiac exam shows regular S1 and S2 without murmurs abdomen is soft nontender and there is no lower extremity edema Last 48 Hrs of Labs/Chauncey: Laboratory Tests 02/01/18 0718: Sodium Pending, Potassium Pending, Chloride Pending, Carbon Dioxide Pending, Anion Gap Pending, BUN Pending, Creatinine Pending, BUN/Creatinine Ratio Pending , Serum Osmolality Pending, C-Reactive Prot, Quant Pending, TSH Pending, Free T4 Pending 01/31/18 1343: Urine Color YEL, Urine Clarity CLEAR, Urine pH 6.0, Ur Specific [place] 1.010, Urine Protein TRACE H, Urine Ketones NEG, Urine Nitrite NEG, Urine Bilirubin NEG, Urine Urobilinogen 0.2, Ur Leukocyte Esterase NEG, Ur Microscopic SEDIMENT EXAMINED, Ur Epithelial Cells RARE, Urine Bacteria FEW H, Urine Hemoglobin NEG, Urine Glucose NEG 01/31/18 1210: Anion Gap 8, Estimated GFR > 60, BUN/Creatinine Ratio 21.4, Glucose 92, Calcium 9.9, Total Bilirubin 0.5, AST 18, ALT 16, Alkaline Phosphatase 95, Troponin I < 0.01, Total Protein 6.1 L, Albumin 3.7, Globulin 2.4, Albumin/Globulin Ratio 1.5, CBC w Diff MAN DIFF ORDERED, RBC 3.49 L, MCV 89.1, MCH 29.4, MCHC 33.0, RDW 13.2, MPV 8.8, Gran % 83.8 H, Lymphocytes % 6.4 L, Monocytes % 7.3, Eosinophils % 2.1, Basophils % 0.4, Absolute Granulocytes 4.4, Absolute Lymphocytes 0.3 L, Absolute Monocytes 0.4, Absolute Eosinophils 0.1, Absolute Basophils 0, Platelet Estimate VERIFIED BY SMEAR, Basophilic Stippling 1+ Assessment/Plan Impression/Plan: 72-year-old woman with severe end-stage COPD chronic hypoxic respiratory failure chronic hypercapnic respiratory failure admitted with increasing shortness of breath. She is clinically improved. Serum bicarbonate is 40 suggesting persistent compensated respiratory acidosis. Recommendations: Repeat noncontrast CT scan of the chest for nodule follow-up. Decrease Solu- Medrol to daily by mouth prednisone tomorrow. Complete course of Zithromax. Nutritional evaluation as the patient is losing weight and appears to be malnourished. Consult Acknowledgment - Thank you for your consult request.
[2018-02-01 14:26] VITALS: BP 134/60
--- NOTE | 2018-02-01 15:17 | CT SCAN REPORT ---
EXAMINATION: CT CHEST WITHOUT CONTRAST CLINICAL INFORMATION: 72-year-old female with known multiple lung nodules. For follow up. COMPARISON: CT of the chest done on 01/02/2017 and 03/05/2015. TECHNIQUE: Multidetector volumetric CT imaging of the chest was done. Axial MIP volume rendering provided. Sagittal and coronal reformatted images were obtained. 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 LUNGS: The index right upper lobar lung nodule as was documented on the most recent prior study dated 01/02/2017 appears less pronounced on the current study (see the barnett images), most consistent with resolving atelectasis. Linear subpleural opacity seen at right upper lobe of the lung and left lung apex appears stable since multiple prior studies dating back to 2014, consistent with benign pathology. The remainder of the lung rae shows no other discrete focal nodule. The tracheobronchial tree appears patent. Underlying emphysematous disease is noted, unchanged. MEDIASTINUM: Diffuse atherosclerotic disease including coronary arterial calcifications are noted. There is no pathologically enlarged mediastinal or hilar lymphadenopathy present, unchanged. PLEURA/PERICARDIUM: There is no pleural effusion. No pleural mass or thickening. Trace amount of pericardial effusion is noted. However, the size of the effusion has increased since prior study especially around the posterior part of the pericardial space which is new and measures approximately 1.4 cm at its maximum anteroposterior dimension (see the barnett images). AXILLA: No lymphadenopathy. UPPER ABDOMEN: Previously documented hypodensity within the left lobe of the liver along the subdiaphragmatic surface is less well visualized on the current study due to beam hardening artifacts, however appears unchanged, consistent with cyst. Right renal exophytic cortical cyst also appears stable. OSSEOUS STRUCTURES: Nonspecific endplate sclerosis, irregularities are noted at L2-L3 disc space, suboptimally included, appear similar to prior study dated 01/02/2017, likely represent degenerative spondylosis. IMPRESSION: 1. The index right upper lobar lung nodule appears less pronounced on the current study as compared to most recent prior study dated 01/02/2017, most consistent with resolving atelectasis. 2. Previously identified linear opacities seen at left lung apex and right upper lobe of the lung in the subpleural region appear stable since 2014, consistent with benign pathology. 3. Trace amount of pericardial effusion is noted, shows mild interval increase as compared to the most recent prior study dated 01/02/2017. 4. No other significant change.
--- NOTE | 2018-02-01 16:01 | PN- Student ---
Subjective Subjective: Ms. Edwards was admitted last night due to COPD exacerbation. There were no overnight events and she reports feeling much better with less difficulty breathing. She is on 3L O2 nasal canula which she also recieves at home. She reports that she started feeling SOB 3-4 days ago and does not recall any sick contacts. Patient reports feeling SOB upon any activity. She reports a dry cough occasionally and denies any sputum production or hemoptysis. In addition she does not endorse any fever or chills, chest pain, palpitations or abdominal pain. She reports her strength has been about the same as it was prior to feeling SOB. She also states that in the past she has had occasional periods of feeling SOB which abates on its own without intervention. She also reports changes in vision over the past month with bluring of her vision. However she adds that she has been increasing the use of her Albuterol inhaler over the past month. 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 Other 2 children do not live in the area. Objective Objective: Vitals: Temp: Afebrile since presenting in ED 01/31/18 RR: >20 01/31/18 however today 02/01/18 RR 18 HR: 80s today BP: 138/58, 138/58 and 134/60 today 02/01/18 Pulse Ox: 94% @ midnight 02/01/18 since then 97, 95, 95, 98 on 3L nasal Weight: 99 lbs 15.99 Oz Ht: reported 5' BMI calculated: 19.5 I&O: Total intake 860 Total output 550 Fluid balance: 310 PE: Gen Stepan: Cachetic, Alert, Not in acute distress HEENT: no scleral injection or evidence of conjunctival pallor CV: Normal S1/S2 no M/R/G, peripheral pulses 2+ (radial, posterior tib, pedial ) Pulm: Diminished lung sounds throughout improved since evaluated in ED 01/31/18, Accessory muscle use on deep breathing, AP diameter increased 1:1 GI: normal appearing abdomen, normal bowel sounds, tympanic in all 4 quads, soft non-tender Extremities: no clubbing of fingers, no evidence of nicotine staining, senile purpura noted along left upper extremity. Labs: CBC: Normocytic anemia with Basophilic stippling 1+ 01/31/18 12:10, WBCs WNL CMP: Hypercarbia- 42, chloride low- 95 but up from 93, Slightly Hyperosmolar- 301 U/A: trace protein and bacteria-few, no evidence of UTI, proteinuria, or DI Radiology: Portable Chest X-Ray 01/31/18: Lung volumes are symmetric, no consolidation, no evidence of pneumo, effusion, edema. Cardiac silhouette is enlarged which is consistent with prior chest x-rays. Comparitive CT Chest wo contrast Impressions: 1. The index right upper lobar lung nodule appears less pronounced on the current study as compared to most recent prior study dated 01/02/2017, most consistent with resolving atelectasis. 2. Previously identified linear opacities seen at left lung apex and right upper lobe of the lung in the subpleural region appear stable since 2014, consistent with benign pathology. 3. Trace amount of pericardial effusion is noted, shows mild interval increase as compared to the most recent prior study dated 01/02/2017. 4. No other significant change. Medications: Atoorvastatin 10 mg po daily Enoxaparin 40 mg daily sc paroxetine 60 mg po daily clopidogrel 75 mg po daily azithromycin 250 mg po daily aripiprazole 10 mg po daily amlodipine 5 mg po daily oxybutynin 2.5 mg po bid mirtazapine 30 mg po qpm Fluticasone 2 puffs bid inhaler albuterol 3 ml tid inhaler acetaminophen 650 mg po q6p prn NEW-Prednisone 40 mg taper po daily Assessment/Plan Assessment: Ms. Edwards is a 72 year old female with a pmh sig for COPD, emphyzema HTN, and hyperlipidemia presented to the ED on 01/31/18 with worsening SOB over a period of 3-4 days. She is on 3 L O2 nasal canula at home and has been continued throughout her stay in the ED and admission. She is a prior smoker with a pack history of roughly 84 years. She has been seeing Dr. Rowan for her COPD and was seen by Dr. Mcgee this morning for evaluation, for which a CTscan of the chest was recommended as well as a prednisone po taper. In addition a nutrition eval was also recomended. She denies any sputum production or hemoptysis. Plan: Problem List: 1. COPD exacerbation 2. Anemia 3. Lung nodule #COPD exacerbation: The patient is much improved since recieving IV methylprednisone, Azithromycin as well as maintaining her fluticasone and albuterol therapy. Lung sounds on PE are still diminished however improved since presenting in the ED. She is on 3L O2 nasal canula at home and has recieved the same in hospital. -Maintain albuterol and fluticasone therapy -Complete Azithromycin treatment -O2 therapy -PT -consider additional ICS therapy upon discharge -ABG if O2 sat decompensates #Anemia: Patient's lab work is indicative of normocytic anemia. This is most likely in relation to her chronic condition of COPD resulting in ACD. In addition the basophilic stippling is likely related to increased EPO production due to a hypercarbic state increasing the demand for O2 carrying capacity and RBC production. She also reports living in a house that is possibly >100 yrs old , which she moved in to 20 yrs ago. In that time she states that she has painted but reports that the pipes in are "bad" but does not know if they are lead. -Repeat CBC -Consider Zinc Protoporphyrin testing for possible chronic lead exposure as well as lead lvl #lung nodule: Patient's CT of chest on 02/01/18 indicated lung nodule present which appears less pronounced when compared to CT chest study in 2017. -continue to monitor DVT ppx: heparin Diet: Heart healthy Code status: DNR/DNI
[2018-02-01 21:47] VITALS: BP 118/42
[2018-02-02 06:56] VITALS: BP 116/56
--- NOTE | 2018-02-02 07:29 | PN- Housestaff ---
See Addendum Subjective Follow-up For: COPD exacerbation Subjective: No overnight events. She continues to improve, breathing feels good. Her last BM was last week. She says she normally goes once a week. She prefers to go to rehab tomorrow. No other complaints. Review of Systems Constitutional: Reports: no symptoms. EENTM: Reports: no symptoms. Cardiovascular: Reports: no symptoms. Respiratory: Reports: see HPI. Gastrointestinal: Reports: no symptoms. Genitourinary: Reports: no symptoms. Musculoskeletal: Reports: no symptoms. Skin: Reports: no symptoms. Neurological/Psychological: Reports: no symptoms. Hematologic/Endocrine: Reports: no symptoms. Immunologic/Allergic: Reports: no symptoms. Objective Last 24 Hrs of Vital Signs/I&O Vital Signs Date Time Temp Pulse Resp B/P B/P Pulse O2 O2 Flow FiO2 Mean Ox Delivery Rate 02/02 0656 97.7 65 18 116/56 94 / 0000 98 Nasal 3.0L Cannula 02/01 2147 98.1 78 18 118/42 98 Nasal 3.0L Cannula 02/01 1830 98 Nasal 3.0L Cannula 02/01 1426 98.2 88 18 134/60 98 Nasal 3.0L Cannula 02/01 1036 86 138/58 02/01 0817 95 Nasal 3.0L Cannula 02/01 0800 95 Nasal 3.0L Cannula Intake & Output 02/02 0800 04/ 0000 02/01 1600 Intake Total 120 120 620 Output Total 300 550 Balance 120 -180 70 Intake, Oral 120 120 620 Number 0 Bowel Movements Output, Urine 300 550 Patient 45.359 kg Weight Physical Exam General Appearance: Alert, Oriented X3, Cooperative, No Acute Distress Cardiovascular: Regular Rate, Normal S1, Normal S2 Lungs: Clear to Auscultation Abdomen: Normal Bowel Sounds, Soft, No Tenderness Extremities: No Edema, Normal Pulses, No Tenderness/Swelling Current Medications: Current Medications Sig/Oskar Start time Last Medication Dose Route Stop Time Status Admin Acetaminophen 650 MG Q6P PRN 01/31 1800 AC PO Albuterol Sulfate 3 ML TID 01/31 2200 AC 02/01 INH 1830 Amlodipine Besylate 5 MG DAILY 02/01 1000 AC 04/ PO 1036 Aripiprazole 10 MG DAILY 02/01 1000 AC 02/01 PO 1038 Atorvastatin Calcium 10 MG 1700 02/01 1700 AC 04/ PO 1621 Azithromycin 250 MG DAILY 02/01 1000 AC 02/01 PO 1035 Clopidogrel Bisulfate 75 MG DAILY 02/01 1000 AC 02/01 PO 1039 Enoxaparin Sodium 40 MG DAILY 02/01 1415 AC 02/01 SC 1415 Fluticasone 2 PUF BID 01/31 2200 AC 02/01 Propionate INH 2116 Methylprednisolone 40 MG Q12 02/01 1000 DC IV 02/06 2201 Methylprednisolone 40 MG DAILY 02/01 1000 DC 02/01 IV 02/12 1001 1051 Mirtazapine 30 MG QPM 01/31 2200 AC 02/01 PO 2116 Oxybutynin Chloride 2.5 MG BID 01/31 2200 AC 02/01 PO 2116 Paroxetine HCl 60 MG DAILY 02/01 1000 AC 02/01 PO 1040 Patient Medication 1 ED ONE ONE 02/01 1130 DC 02/01 Teaching ED 02/01 1131 1205 Prednisone 10 MG DAILY 02/05 1000 AC PO 02/05 1001 Prednisone 20 MG DAILY 02/04 1000 AC PO 02/04 1001 Prednisone 30 MG DAILY 02/03 1000 AC PO 02/03 1001 Prednisone 40 MG DAILY 02/02 1000 CAN PO 02/06 0959 Prednisone 40 MG DAILY 02/02 1000 AC PO 02/02 1001 Assessment/Plan Assessment: The patient is a 72-year-old with a past medical history of COPD on chronic 3 L home oxygen followed by Dr. Stevens, hypertension, hyperlipidemia, HFpEF, s/p carotid endarterectomy, TIA, and osteoporosis who is here with a COPD exacerbation. Problem list: 1. COPD exacerbation 2. Chronic respiratory failure 3. Normocytic anemia #COPD exacerbation: Patient presented with history of shortness of breath and recent URI that caused her to come in for further evaluation. Pulmonology was consulted. CT chest showed resolving lung lesion, likely atelectasis. She says that this morning she feels better than yesterday. She would like to go to rehabilitation tomorrow. -IV methylprednisone today, Prednisone taper starting tomorrow -Azithromycin, day 3 -Albuterol -Fluticasone -Appreciate pulmonology recommendations -PT consult -Oxygen therapy -TRC nebs -Bowel regimen for rehabilitation #Normocytic anemia: Likely anemia of chronic disease -Continue to monitor #Chronic medical problems: -Continue other home medications DVT prophylaxis with heparin Heart healthy diet DNR/DNI Problem List: 1. COPD exacerbation Pain Ratin Pain Location: no Pain Goal: Remain pain free Pain Plan: see a/p Tomorrow's Labs & Rationales: no
--- NOTE | 2018-02-02 08:34 | PN- Student ---
Subjective Subjective: Ms. Edwards reports no overnight events and improving ease of breathing. She has had a few episodes of shortness of breath but states they do not last more than 5 minutes at a time before resolving. She is on 3 L O2 nasal canula. She states that she has had an increased appetite since yesterday. However she reports that she has not had a BM and thinks the last time was last week. She reports her diet at home consists mostly of junk food although she does have meals on wheels that comes by once a day for 5 days out of the week. She also has someone that goes grocery shopping for her. She denies any HICKMAN, SOB, CP, palpitations, n/v, or any abdominal pain. Objective Objective: Vital Signs Date Time Temp Pulse Resp B/P B/P Pulse O2 O2 Flow FiO2 Mean Ox Delivery Rate 02/03 656 97.7 65 18 116/56 94 / 0000 98 Nasal 3.0L Cannula 02/01 2147 98.1 78 18 118/42 98 Nasal 3.0L Cannula 02/010 98 Nasal 3.0L Cannula 02/01 1426 98.2 88 18 134/60 98 Nasal 3.0L Cannula 02/01 1036 86 138/58 Intake & Output 02/02 1600 02/02 0800 02/02 0000 Intake Total 120 120 Output Total 400 300 Balance -280 -180 Intake, Oral 120 120 Output, Urine 400 300 Vital Signs Date Time Temp Pulse Resp B/P B/P Pulse O2 O2 Flow FiO2 Mean Ox Delivery Rate 02/03 656 97.7 65 18 116/56 94 / 0000 98 Nasal 3.0L Cannula 02/01 2147 98.1 78 18 118/42 98 Nasal 3.0L Cannula 02/01 1830 98 Nasal 3.0L Cannula 02/01 1426 98.2 88 18 134/60 98 Nasal 3.0L Cannula / 1036 86 138/58 Current Medications Sig/Oskar Start time Last Medication Dose Route Stop Time Status Admin Acetaminophen 650 MG Q6P PRN 01/31 1800 AC PO Albuterol Sulfate 3 ML TID 01/31 2200 AC 02/01 INH 1830 Amlodipine Besylate 5 MG DAILY 02/01 1000 AC 02/01 PO 1036 Aripiprazole 10 MG DAILY 02/01 1000 AC 02/01 PO 1038 Atorvastatin Calcium 10 MG 1700 02/01 1700 AC 02/01 PO 1621 Azithromycin 250 MG DAILY 02/01 1000 AC 02/01 PO 1035 Clopidogrel Bisulfate 75 MG DAILY 02/01 1000 AC 02/01 PO 1039 Enoxaparin Sodium 40 MG DAILY 02/01 1415 AC 02/01 SC 1415 Fluticasone 2 PUF BID 01/31 2200 AC 02/01 Propionate INH 2116 Methylprednisolone 40 MG Q12 02/01 1000 DC IV 02/06 2201 Methylprednisolone 40 MG DAILY 02/01 1000 DC 04/ IV 02/12 1001 1051 Mirtazapine 30 MG QPM 01/31 2200 AC 02/01 PO 2116 Oxybutynin Chloride 2.5 MG BID 01/31 2200 AC 02/01 PO 2116 Paroxetine HCl 60 MG DAILY 02/01 1000 AC 02/01 PO 1040 Patient Medication 1 ED ONE ONE 02/01 1130 DC 02/01 Teaching ED 02/01 1131 1205 Prednisone 10 MG DAILY 02/05 1000 AC PO 02/05 1001 Prednisone 20 MG DAILY 02/04 1000 AC PO 02/04 1001 Prednisone 30 MG DAILY 02/03 1000 AC PO 02/03 1001 Prednisone 40 MG DAILY 02/02 1000 CAN PO 02/06 0959 Prednisone 40 MG DAILY 02/02 1000 AC PO 02/02 1001 PE: Gen apperance: No acute distress CV: normal rate and rhythym, normal S1/S2 no M/R/G Pulm: clear on auscultation, no rubs, wheezes or ronchi Abd: Soft, non-tender, normal bowel sounds Assessment/Plan Assessment: Ms. Edwards is a 72 year old female with a PMH significant for COPD for which she recieves 3L O2 via nasal canula at home, and followed outpatient by Dr. Rowan. Patient was admitted for acute exacerbation of COPD on 01/31/18, as she presented to the ED with SOB. She has seen Dr. Mcgee for her COPD as he is covering for Dr. Rowan. Her ease of breathing has been improving since her admission for the most part, although she does endorse some trouble breathing yesterday afternoon/ evening. She also reports an increased appetite. Ms. Edwards lives alone in a house that is 100+ years old. Her diet at home consists of mostly junk food with 1 meal provided by [employer] 5 days out of the week. She also reports that someone does do her grocery shopping for her. Her daughter is a nurse with a very hectic schedule. She has not had a BM since admission and reports she only has 1 BM about once a week with her most recent BM being last week but could not recall which day. Plan: Problem list: 1. Acute exacerbation of COPD 2. Normocytic Anemia 3. Lung nodule 4. Malnutrition 5. Constipation #Acute exacerbation of COPD: Ms. Edwards reports improved ease of breathing since methylprednisone IV, and continued albuterol and fluticasone therapy. She did report some difficulty breathing that occured yesterday afternoon/evening. However for the most part she feels that breathing has become less of an effort. She appeared to be breathing easier and lungs sounded clear with breath sounds being more audible. She still does not have any sputum production or hemoptysis. -Prednisone PO taper -continue 3L O2 therapy -if O2 desaturates then obtain ABG and revaluate -continue albuterol and fluticasone therapy #Normocytic anemia:Likely a result of her COPD causing normocytic anemia + basophilic stippling. This anemia is likely explained by ACD. She also may have PIPER, as her diet is not very good at home. However, since patient has been living 20+ years in a house that is >100 years old she may have chronic exposure to lead. She did state the house has been painted recently so that is an unlikely source, but she did not know the composition of the pipes in the house and recalls that they are in "bad" condition. -Consider Iron studies- Fe, Transferritin, and TIBC lvls -If negative consider Lead level and Zinc Protoporphyrin testing to assess chronic lead poisoining #Lung nodule: Ct of chest without contrast performed yesterday and showed no increase in growth of the nodule. The report also indicated some pleural effusion present which may explain her exacerbating symptoms of COPD as well as PE findings from yesterday. However today the lungs sounded clear to ausculatation in the posterior lung rae, although lung sounds are still diminished they were more audible today. This may have been helped by steriod therapy and azithromycin to reduce inflammation and insult to the lung. -Continue to monitor lung nodule- repeat CT chest in 6 months outpatient -continue to f/u with parachute rigger outpatient #Malnutrition: Ms. Edwards lives alone and reports a diet consisting mostly of junk food. Only getting 1 balanced meal delievered to her 5 days out of the week from [employer]. She reports an increased appetite here in the hospital which may be a result of decreased symptoms of SOB, IV steroids or the availability of a balanced meal. -Consider Nutrition consult -Talk with program planner about obstacles to healthy diet -Consider assisted living arrangement #Constipation: Patient's reports her baseline to be 1 BM per week, may be due to inadequate diet. Patient has not had a BM since admission, reports last BM sometime last week. -Laxative -Stool softner -Increase fiber in diet
--- NOTE | 2018-02-02 10:21 | PN- Pulmonary ---
Subjective HPI/Critical Care Issues: pt seen and examined covering for Dr. Mcgee afebrile 99% spo2 on 3LNC Objective Current Medications: Current Medications Sig/Oskar Start time Last Medication Dose Route Stop Time Status Admin Acetaminophen 650 MG Q6P PRN 01/31 1800 AC PO Albuterol Sulfate 3 ML TID 01/31 2200 AC 04 INH 0838 Amlodipine Besylate 5 MG DAILY / 1000 AC 02/02 PO 1005 Aripiprazole 10 MG DAILY 02/01 1000 AC 02/02 PO 1005 Atorvastatin Calcium 10 MG 1700 04 1700 AC 04 PO 1621 Azithromycin 250 MG DAILY 02/01 1000 AC 02/02 PO 1005 Bisacodyl 10 MG ONCE ONE 02/02 0945 DC VA 02/02 0946 Clopidogrel Bisulfate 75 MG DAILY 02/01 1000 AC 02/02 PO 1005 Enoxaparin Sodium 40 MG DAILY 02/01 1415 AC 02/02 SC 1004 Fluticasone 2 PUF BID 01/31 2200 AC 02/02 Propionate INH 1005 Methylprednisolone 40 MG DAILY 02/02 1000 AC 02/02 IV 1004 Methylprednisolone 40 MG DAILY 02/01 1000 DC 04/05 IV 02/12 1001 1051 Mirtazapine 30 MG QPM 01/31 2200 AC 02/01 PO 2116 Oxybutynin Chloride 2.5 MG BID 01/31 2200 AC 02/02 PO 1005 Paroxetine HCl 60 MG DAILY 02/01 1000 AC / PO 1005 Patient Medication 1 ED ONE ONE 02/01 1130 DC 02/01 Teaching ED 02/01 1131 1205 Polyethylene Glycol 17 GM DAILY 02/02 1000 AC PO Prednisone 10 MG DAILY 02/05 1000 CAN PO 02/05 1001 Prednisone 20 MG DAILY 02/04 1000 CAN PO 02/04 1001 Prednisone 30 MG DAILY 02/03 1000 CAN PO 02/03 1001 Prednisone 40 MG DAILY 02/02 1000 CAN PO 02/06 0959 Prednisone 40 MG DAILY 02/02 1000 CAN PO 02/02 1001 Vital Signs & I&O Last 24 Hrs of Vitals and I&O: Vital Signs Date Time Temp Pulse Resp B/P B/P Pulse O2 O2 Flow FiO2 Mean Ox Delivery Rate 02/02 0839 99 Nasal 3.0L Cannula 02/02 08 94 Nasal 3.0L Cannula 02/02 0656 97.7 65 18 116/56 94 02/02 0000 98 Nasal 3.0L Cannula 02/01 2147 98.1 78 18 118/42 98 Nasal 3.0L Cannula 02/01 1830 98 Nasal 3.0L Cannula 02/01 1426 98.2 88 18 134/60 98 Nasal 3.0L Cannula 02/01 1036 86 138/58 Intake & Output 02/02 1600 02/02 0800 04 0000 Intake Total 120 120 Output Total 400 300 Balance -280 -180 Intake, Oral 120 120 Output, Urine 400 300 Exam Other Physical Findings: gen awake and alert heent ncat cvs s1, s2 lungs reduced air entry abd soft bs+ ext without edema Impression/Plan Impression/Plan Impression/Plan: Impression 72 year old woman * severe COPD with acute exacerbation and chronic hypoxemic respiratory failure Plan -dc solumedrol -begin prednisone taper - 60mgx2, 50x2, then 40mg x2, 30x2, 20x2, 10x2 thens stop -trc/nebs -maintain o2 saturation to a goal of >92% - reduce fio2 -zpak course -ct chest reviewed - RUL nodule less pronounced - suggestive of atelectasis, stable left lung apex and RUL subpleural opacities since 2014 -f/u with Dr. Mcgee/Rodney as outpatient Call with any questions or concerns DVT prophylaxis at all times
[2018-02-02] MEDS ORDERED: PREDNISONE10 M2 PO (10:48)
--- NOTE | 2018-02-02 10:50 | Patient Discharge Instructions ---
Discharge Instructions General Discharge Information You were seen/treated for: COPD exacerbation Watch for these problems: Fever, chest pain, shortness of breath Special Instructions: Please take all medications as directed. Please follow-up with pulmonology and primary care. Diet Continue normal diet: Yes Activity Full Activity/No Limits: Yes Acute Coronary Syndrome Inclusion Criteria At DC or during hospital stay patient has or had the following: ACS DIAGNOSIS No Discharge Core Measures Meds if any: Prescribed or Continued at Discharge Meds if any: NOT Prescribed or Continued at Discharge Congestive Heart Failure Inclusion Criteria At DC or during hospital stay patient has or had the following: CHF DIAGNOSIS No Discharge Core Measures Meds if any: Prescribed or Continued at Discharge Meds if any: NOT Prescribed or Continued at Discharge Cerebrovascular accident Inclusion Criteria At DC or during hospital stay patient has or had the following: CVA/TIA Diagnosis No Discharge Core Measures Meds if any: Prescribed or Continued at Discharge Meds if any: NOT Prescribed or Continued at Discharge Venous thromboembolism Inclusion Criteria VTE Diagnosis No VTE Type NONE VTE Confirmed by (Test) NONE Discharge Core Measures - Per Current guidelines, there needs to be overlap - treatment for the first 5 days of Warfarin therapy. - If discharged on Warfarin prior to 5 days of - overlap therapy, the patient will need to be - assessed for post discharge needs including - *Post discharge parental anticoagulation - *Warfarin and/or parental anticoagulation education - *Follow up date to check INR post discharge At least 5 days overlap therapy as Inpatient No Meds if any: Prescribed or Continued at Discharge Note: Overlap Therapy is Warfarin and Anticoagulant Meds if any: NOT Prescribed or Continued at Discharge
[2018-02-02] MEDS ORDERED: MIRALAX17 G1 PO (11:22)
[2018-02-02] MEDS ORDERED: ALBUTEROL2.5 MG/3 M INH (11:22)
[2018-02-02] MEDS ORDERED: AZITHROMYCIN250 M1 PO (11:42)
[2018-02-02 14:13] VITALS: BP 120/52
[2018-02-02 22:22] VITALS: BP 128/70
--- NOTE | 2018-02-02 23:24 | Discharge Summary ---
Visit Information Visit Dates Admission Date: 01/31/18 Discharge Date: 01/718 Hospital Course Course Attending Physician: Alana Wiggins MD Primary Care Physician: Fernando LONGORIA,[facility] Course: The patient is a 72-year-old with a past medical history of COPD (emphysema) on chronic 3 L home oxygen supplementation, hypertension, hyperlipidemia, stage I diastolic heart failure carotid endarterectomy, previous TIA, and osteoporosis that presented to the emergency room for evaluation of shortness of breath of 4 days duration. She developed progressively worsening shortness of breath for ehe preceding 4 days associated with intermittent non-productive cough. She denied recent travel or sick contacts. However patient lives at home alone and has a visiting nurse who might have been sick. She denied fever, chills, runny nose, sore throat, nausea, vomiting, diarrhea or constipation. She was hypoxic upon ambulation in the ER to 83%.Vital signs in the ER showed a Temp of 97.8 F, pulse of 72 bpm, BP 174/75 mmhg, PO2 100 % on 3 L of O2. Physical exam at presentation: General Appearance Alert, Oriented X3, Cooperative, Mild Distress HEENT Atraumatic, PERRLA, EOMI, Mucous Membr. moist/pink Neck Supple, No JVD Cardiovascular Normal S1, Normal S2, No Murmurs Lungs decreased air entery in both lung rae Abdomen Normal Bowel Sounds, Soft, No Tenderness Neurological Normal Speech Extremities No Clubbing, No Cyanosis, No Edema Labs on presentation: Na 141, K 4.3, Cl 93, Creat 0.7. CBC: WBC 5.3, Hb 10.3, Platelets 241 Chest X ray: No acute cardiopulmonary abnormality EKG :Normal sinus rhythm, regular, 77, NH 164, QTc 403, right axis deviation She was admitted for management of COPD exacerbation and treated with IV solumedrol and bronchodilator nebulizer treatments. She was also given a course of IV and oral azithromycin. She was reviewed by gravedigger Dr. Mcgee and also Dr. Saenz and a Chest CT done to monitor her known right upper lobe nodule revealed that the nodule was less pronounced - suggestive of atelectasis, with stable left lung apex and RUL subpleural opacities since 2014. Her shortness of breath improved and her IV steroids were switched to PO prednisone prior to discharge. She is being discharged to [facility] Allergies: Coded Allergies: oxycodone (KNOCKED ME OUT 01/13/16) Pertinent Lab Results: CT chest without IV contrast 02/01/18 IMPRESSION: 1. The index right upper lobar lung nodule appears less pronounced on the current study as compared to most recent prior study dated 01/02/2017, most consistent with resolving atelectasis. 2. Previously identified linear opacities seen at left lung apex and right upper lobe of the lung in the subpleural region appear stable since 2014, consistent with benign pathology. 3. Trace amount of pericardial effusion is noted, shows mild interval increase as compared to the most recent prior study dated 01/02/2017. 4. No other significant change. Disposition Summary Disposition Principal Diagnosis: 1. COPD exacerbation Additional Diagnosis: 2. Normocytic anemia Discharge Disposition: SNF Discharge Instructions General Discharge Information Code Status: Do Not Resucitate/Intubat Patient's Diet: Regular diet Patient's Activity: Self-limited activity-Full weight bearing Follow-Up Instructions/Appts: 1. Follow up with your primary care provider and pulmunologist within 1 week of discharge. Medications at Discharge Discharge Medications: Continue taking these medications: Paroxetine HCl (Paroxetine HCl) 40 MG TABLET 1.5 Tablet ORAL DAILY Comments: Last Taken: 02/03/18 Time: 9:00 AM Clopidogrel Bisulfate (Clopidogrel) 75 MG TABLET 1 Tablet ORAL DAILY Qty = 90 Comments: Last Taken: 02/03/18 Time: 9:00 AM Simvastatin (Simvastatin*) 20 MG TABLET 1 Tablet ORAL Every night Comments: Last Taken: 02/02/18 Time: 4:30 PM (LIPITOR 10MG GIVEN) Fluticasone Propionate (Flovent Hfa) 220 MCG AER.W.ADAP 2 PUFF Inhale through mouth TWICE DAILY Qty = 12 Comments: Last Taken: 02/03/18 Time: 9:00 AM Aripiprazole (Abilify) 10 MG TABLET 1 Tablet ORAL DAILY Qty = 30 Comments: Last Taken: 02/03/18 Time: 9:00 AM Amlodipine Besylate (Norvasc) 5 MG TABLET 1 Tablet ORAL DAILY Comments: Last Taken: 02/03/18 Time: 9:00 AM Albuterol Sulfate (Ventolin Hfa) 90 MCG HFA.AER.AD 2 Puff Inhale through mouth EVERY 4 HOURS NEEDED as needed for COPD Qty = 18 Comments: NOT GIVEN IN HOSPITAL Solifenacin Succinate (Vesicare) 10 MG TABLET 1 Tablet ORAL DAILY Qty = 90 Comments: Last Taken: 02/03/18 Time: 9:00 AM (OXYBUTYNIN 2.5MG GIVEN) Tiotropium [place] (Spiriva) 18 MCG CAP.W.DEV 1 Capsule Inhale through mouth DAILY Comments: NOT GIVEN IN HOSPITAL Mirtazapine (Mirtazapine) 30 MG TABLET 1 Tablet ORAL Every night Qty = 30 Comments: Last Taken: 02/02/18 Time: 9:30 PM Start taking the following new medications: Albuterol Sulfate (Albuterol Sulfate) 2.5 MG/3 ML (0.083 %) VIAL.NEB 3 Milliliters Inhale through mouth THREE TIMES DAILY as needed for Shortness of breath Qty = 1 No Refills Comments: Last Taken: 02/03/18 Time: 12:00 PM Azithromycin (Azithromycin) 250 MG TABLET 250 Milligram ORAL DAILY Qty = 1 No Refills Instructions: . Comments: Last Taken: 02/03/18 Time: 9:00 AM Prednisone (Prednisone) 10 MG TABLET 1 Tablet ORAL DAILY Qty = 36 No Refills Instructions: Please take 60mg on 02/04/18, 50mg from 02/05/18-02/06/18, 40mg from 02/07/18-02/08/18, 30mg from 02/09/18-02/10/18, 20mg from 02/11/18-02/12/18, 20mg from 02/13/18-02/14/18, then stop. Comments: Last Taken: 02/03/18 Time: 9:00 AM Polyethylene Glycol 3350 (Miralax) 17 GRAM POWD.PACK 1 Packet ORAL DAILY as needed for Constipation Qty = 30 No Refills Instructions: dissolve in water Comments: Last Taken: 02/03/18 Time: 9:00 AM Copies To: Arely LONGORIA,Mauri Mishra; Fernando LONGORIA,Zina; Dany LONGORIA,Fady
[2018-02-03 07:09] VITALS: BP 156/90
[2018-02-03 08:26] VITALS: BP 146/80
[2018-02-03 09:09] VITALS: BP 146/80
--- NOTE | 2018-02-03 10:26 | PN- Housestaff ---
See Addendum Subjective Follow-up For: COPD exacerbation Subjective: Patient seen and examined. Resting comfortably. Lungs clear on examination. Stable to be discharged today. Review of Systems Constitutional: Reports: see HPI. Objective Last 24 Hrs of Vital Signs/I&O Vital Signs Date Time Temp Pulse Resp B/P B/P Pulse O2 O2 Flow FiO2 Mean Ox Delivery Rate 02/03 1236 98 Nasal 3.0L Cannula 02/03 0909 75 146/80 02/03 0826 97.5 75 18 146/80 02/03 0800 96 Nasal 3.0L Cannula 02/03 0709 97.5 75 18 156/90 100 Nasal 3.0L Cannula 02/03 0000 Nasal 3.0L Cannula 02/02 2222 98.7 74 20 128/70 98 Nasal 3.0L Cannula 02/02 2210 96 Nasal 3.0L Cannula 02/02 1600 98 Nasal 2.0L Cannula 02/02 1413 98.2 75 19 120/52 99 Nasal Cannula Intake & Output 02/03 1600 02/03 0800 02/03 0000 Intake Total 360 Output Total 450 250 600 Balance -450 -250 -240 Intake, Oral 360 Output, Urine 450 250 600 Physical Exam General Appearance: Alert, Oriented X3 Lungs: Clear to Auscultation, Normal Air Movement Abdomen: No Tenderness Current Medications: Current Medications Sig/Oskar Start time Last Medication Dose Route Stop Time Status Admin Acetaminophen 650 MG Q6P PRN 01/31 1800 AC PO Albuterol Sulfate 3 ML TID 01/31 2200 AC 02/03 INH 1233 Amlodipine Besylate 5 MG DAILY 02/01 1000 AC 02/03 PO 0909 Aripiprazole 10 MG DAILY 02/01 1000 AC 02/03 PO 0909 Atorvastatin Calcium 10 MG 1700 02/01 1700 AC 02/02 PO 1629 Azithromycin 250 MG DAILY 02/01 1000 AC 02/03 PO 0909 Clopidogrel Bisulfate 75 MG DAILY 02/01 1000 AC 02/03 PO 0909 Enoxaparin Sodium 40 MG DAILY 02/01 1415 AC 02/03 SC 0909 Fluticasone 2 PUF BID 01/31 2200 AC 02/03 Propionate INH 0910 Mirtazapine 30 MG QPM 01/31 2200 AC 02/02 PO 2136 Oxybutynin Chloride 2.5 MG BID 01/31 2200 AC 02/03 PO 0909 Paroxetine HCl 60 MG DAILY 02/01 1000 AC 02/03 PO 0909 Polyethylene Glycol 17 GM DAILY 02/02 1000 AC 02/03 PO 0909 Prednisone 10 MG DAILY 02/14 1000 DC PO 02/16 0959 Prednisone 10 MG DAILY 02/13 1000 AC PO 02/14 1001 Prednisone 20 MG DAILY 02/11 1000 AC PO 02/13 0959 Prednisone 30 MG DAILY 02/09 1000 AC PO 02/11 0959 Prednisone 40 MG DAILY 02/07 1000 AC PO 02/09 0959 Prednisone 50 MG DAILY 02/05 1000 AC PO 02/07 0959 Prednisone 60 MG DAILY 02/03 1000 AC 02/03 PO 02/05 0959 0909 Assessment/Plan Assessment: The patient is a 72-year-old with a past medical history of COPD on chronic 3 L home oxygen followed by Dr. Steevns, hypertension, hyperlipidemia, HFpEF, s/p carotid endarterectomy, TIA, and osteoporosis who is here with a COPD exacerbation. Problem list: 1. COPD exacerbation 2. Chronic respiratory failure 3. Normocytic anemia #COPD exacerbation: Patient presented with history of shortness of breath and recent URI that caused her to come in for further evaluation. Pulmonology was consulted. CT chest showed resolving lung lesion, likely atelectasis. She says that this morning she feels better than yesterday. She would like to go to rehabilitation tomorrow. -Prednisone taper -Azithromycin, day 4 -Albuterol -Fluticasone -Appreciate pulmonology recommendations -PT consult -Oxygen therapy -TRC nebs -Bowel regimen for rehabilitation #Normocytic anemia: Likely anemia of chronic disease -Continue to monitor #Chronic medical problems: -Continue other home medications DVT prophylaxis with heparin Heart healthy diet DNR/DNI Problem List: 1. COPD exacerbation Pain Ratin Pain Location: na Pain Goal: Pain 4 or less Pain Plan: prn Tomorrow's Labs & Rationales: n/a
--- NOTE | 2018-02-03 13:04 | PN- Pulmonary ---
Subjective HPI/Critical Care Issues: Stable Being dcd stable Objective Current Medications: Current Medications Sig/Oskar Start time Last Medication Dose Route Stop Time Status Admin Acetaminophen 650 MG Q6P PRN 01/31 1800 AC PO Albuterol Sulfate 3 ML TID 01/31 2200 AC 02/03 INH 1233 Amlodipine Besylate 5 MG DAILY 02/01 1000 AC 02/03 PO 0909 Aripiprazole 10 MG DAILY 02/01 1000 AC 02/03 PO 0909 Atorvastatin Calcium 10 MG 1700 02/01 1700 AC 02/02 PO 1629 Azithromycin 250 MG DAILY 02/01 1000 AC 02/03 PO 0909 Clopidogrel Bisulfate 75 MG DAILY 02/01 1000 AC 02/03 PO 0909 Enoxaparin Sodium 40 MG DAILY 02/01 1415 AC 02/03 SC 0909 Fluticasone 2 PUF BID 01/31 2200 AC 02/03 Propionate INH 0910 Mirtazapine 30 MG QPM 01/31 2200 AC 02/02 PO 2136 Oxybutynin Chloride 2.5 MG BID 01/31 2200 AC 02/03 PO 0909 Paroxetine HCl 60 MG DAILY 02/01 1000 AC 02/03 PO 0909 Polyethylene Glycol 17 GM DAILY 02/02 1000 AC 02/03 PO 0909 Prednisone 10 MG DAILY 02/14 1000 DC PO 02/16 0959 Prednisone 10 MG DAILY 02/13 1000 AC PO 02/14 1001 Prednisone 20 MG DAILY 02/11 1000 AC PO 02/13 0959 Prednisone 30 MG DAILY 02/09 1000 AC PO 02/11 0959 Prednisone 40 MG DAILY 02/07 1000 AC PO 02/09 0959 Prednisone 50 MG DAILY 02/05 1000 AC PO 02/07 0959 Prednisone 60 MG DAILY 02/03 1000 AC 02/03 PO 02/05 0959 0909 Vital Signs & I&O Last 24 Hrs of Vitals and I&O: Vital Signs Date Time Temp Pulse Resp B/P B/P Pulse O2 O2 Flow FiO2 Mean Ox Delivery Rate 02/03 1236 98 Nasal 3.0L Cannula 02/03 0909 75 146/80 02/03 0826 97.5 75 18 146/80 02/03 0800 96 Nasal 3.0L Cannula 02/03 0709 97.5 75 18 156/90 100 Nasal 3.0L Cannula 02/03 0000 Nasal 3.0L Cannula 02/022 98.7 74 20 128/70 98 Nasal 3.0L Cannula 02/02 2210 96 Nasal 3.0L Cannula 02/02 1600 98 Nasal 2.0L Cannula 02/02 1413 98.2 75 19 120/52 99 Nasal Cannula Intake & Output 02/03 1600 02/03 0800 04 0000 Intake Total 360 Output Total 450 250 600 Balance -450 -250 -240 Intake, Oral 360 Output, Urine 450 250 600 Impression/Plan Impression/Plan Impression/Plan: gen awake and alert heent ncat cvs s1, s2 lungs reduced air entry abd soft bs+ ext without edema IMPRESSION: 1. The index right upper lobar lung nodule appears less pronounced on the current study as compared to most recent prior study dated 01/02/2017, most consistent with resolving atelectasis. 2. Previously identified linear opacities seen at left lung apex and right upper lobe of the lung in the subpleural region appear stable since 2014, consistent with benign pathology. 3. Trace amount of pericardial effusion is noted, shows mild interval increase as compared to the most recent prior study dated 01/02/2017. 4. No other significant change. DICTATED BY: Elise Nickerson MD DATE/TIME DICTATED:02/01/181428 IMPRESSION PT with sig copde with chronic hypoxic and hypercarbic resp failure Chronic anemia Lung nodule rt upperlobe stable prob atx Mild pericardial effusion stable no tamponade physiology REC OK to dc Steroid taper Keep sat at 90 Follow up with Serena Mcgee
== END 2018-02-03 14:07 | DRG 191 ==
LOC: ERH 11:35 → 2NB 16:38 → ERHI 16:38 → ENRESERV 17:03 → ENTRNSPT 17:21 → EDTRNSPTSTS 17:34 → 2NB 17:47 → CMPTRNSPT 18:34 → 2NB 02-01 09:24 → ENPENDDIS 02-03 11:56 → ENTRNSPT 02-03 13:51 → EDTRNSPTSTS 02-03 13:53 → EDTRNSPT 02-03 13:53 → 2NB 02-03 14:07 → CMPTRNSPT 02-03 14:15
PROVIDERS: Physician Assistant Medical
DX: J44.1 Chronic obstructive pulmonary disease with (acute) exacerbation (principal); J96.11 Chronic respiratory failure with hypoxia; E46 Unspecified protein-calorie malnutrition; E87.2 Acidosis; I50.32 Chronic diastolic (congestive) heart failure; Z68.1 Body mass index [BMI] 19.9 or less, adult; I11.0 Hypertensive heart disease with heart failure; Z99.81 Dependence on supplemental oxygen; D64.9 Anemia, unspecified; I08.2 Rheumatic disorders of both aortic and tricuspid valves; E78.5 Hyperlipidemia, unspecified; M81.0 Age-related osteoporosis without current pathological fracture; K59.00 Constipation, unspecified; F41.9 Anxiety disorder, unspecified; F32.9 Major depressive disorder, single episode, unspecified; Z66 Do not resuscitate; R91.1 Solitary pulmonary nodule; Z98.890 Other specified postprocedural states; Z88.5 Allergy status to narcotic agent; Z87.891 Personal history of nicotine dependence; Z86.73 Personal history of transient ischemic attack (TIA), and cerebral infarction without residual deficits
CPT/HCPCS: 2NBSP; 36592; 71045; 81001; 82436; 93005; 93010; J0401; J0456; J1650; J2920; J2930; J3490; J7060; J7512

== ENCOUNTER 2018-02-24 14:53 | Inpatient (IN) | payer OTHER, MEDICARE ==
[~2018-02-24] VITALS: Ht 152.4 cm; Wt 44.9 kg
[~2018-02-24 14:53] MED LIST changes: +ALBUTEROL2.5 MG/3 M INH; +MIRALAX17 G1 PO; +MIRTAZAPINE30 M2 PO
[2018-02-24 15:32] LABS: ABSOLUTE BASOPHIL COUNT 0 /CUMM (0.0-0.2); ABSOLUTE EOSINOPHIL COUNT 0.1 /CUMM (0.0-0.7); ABSOLUTE GRANULOCYTE CT 6.2 /CUMM (1.4-6.5); ABSOLUTE LYMPH COUNT 0.7 /CUMM (1.2-3.4); ABSOLUTE MONOCYTE COUNT 0.4 /CUMM (0.10-0.60); BASOPHIL % 0.3 % (0.0-2.0); EOSINOPHIL % 0.9 % (0-5); HEMATOCRIT 32.9 % (37-47); MEAN CORPUSCULAR HGB 28.9 PG (27.0-31.0); MEAN CORPUSCULAR HGB CONC 31.9 G/DL (33.0-37.0); MEAN CORPUSCULAR VOLUME 90.8 FL (81.0-99.0); MEAN PLATELET VOLUME 8.9 FL (7.4-10.4); PLATELET COUNT 260 /CUMM (130-400); RBC DISTRIBUTION WIDTH 13.3 % (11.5-14.5); RED BLOOD CELL CT 3.62 /CUMM (4.20-5.40); WHITE BLOOD CELL COUNT 7.5 /CUMM (4.8-10.8)
[2018-02-24 15:47] LABS: GRANULOCYTE % 83.5 % (42.2-75.2)
--- NOTE | 2018-02-24 16:12 | RADIOLOGY REPORT ---
EXAMINATION: XR CHEST CLINICAL INFORMATION: Shortness of breath. COMPARISON: Chest radiograph 01/31/2018. TECHNIQUE: 2 views of the chest were obtained. FINDINGS: Cardiomediastinal silhouette and pulmonary vasculature are within normal limits. The lungs are hyperexpanded but clear of focal infiltrate. There is minimal blunting of both costophrenic angles which appears similar to prior examination and may represent sequela of scarring. There are atherosclerotic changes of thoracic aorta and degenerative changes of the visualized spine. IMPRESSION: Stable minimal blunting of both costophrenic angles which favors normal lung scarring rather than tiny pleural effusions. No focal airspace consolidation to suggest pneumonia. COPD.
--- NOTE | 2018-02-24 16:21 | ED GENERAL ADULT ---
See Addendum History of Present Illness General Chief Complaint: Dyspnea (COPD, CHF, Other) Stated Complaint: BIBA SOB Source: patient, EMS Exam Limitations: no limitations Vital Signs & Intake/Output Vital Signs & Intake/Output Vital Signs Date Time Temp Pulse Resp B/P B/P Pulse O2 O2 Flow FiO2 Mean Ox Delivery Rate 02/24 1806 80 96 02/24 1650 89 100 02/24 1635 97.9 02/24 1515 100 8L 02/24 1514 98.5 76 20 102/52 100 Aerosol 8L Mask 02/24 1500 94 8L Allergies Coded Allergies: oxycodone (KNOCKED ME OUT 01/13/16) Reconcile Medications Albuterol Sulfate (Ventolin Hfa) 90 MCG HFA.AER.AD 2 PUF INH Q4 HRS NEEDED PRN COPD (Reported) Albuterol Sulfate 2.5 MG/3 ML (0.083 %) VIAL.NEB 3 ML INH TID PRN Shortness of breath Amlodipine Besylate (Norvasc) 5 MG TABLET 1 TAB PO DAILY HEART (Reported) Aripiprazole (Abilify) 10 MG TABLET 1 TAB PO DAILY MENTAL HEALTH (Reported) Clopidogrel Bisulfate (Clopidogrel) 75 MG TABLET 1 TAB PO DAILY BLOOD THINNER (Reported) Cyanocobalamin (Vitamin B-12) 1,000 MCG TABLET 1 TAB PO DAILY SUPPLEMENT ( Reported) Fluticasone Propionate (Flovent Hfa) 220 MCG AER.W.ADAP 2 PUFF INH BID COPD ( Reported) Mirtazapine 30 MG TABLET 1 TAB PO QPM SLEEP (Reported) Paroxetine HCl 40 MG TABLET 1.5 TAB PO DAILY MENTAL HEALTH (Reported) Polyethylene Glycol 3350 (Miralax) 17 GRAM POWD.PACK 1 PAC PO DAILY PRN Constipation dissolve in water Simvastatin (Simvastatin*) 20 MG TABLET 1 TAB PO QPM CHOLESTEROL (Reported) Solifenacin Succinate (Vesicare) 10 MG TABLET 1 TAB PO DAILY BLADDER ( Reported) Tiotropium [place] (Spiriva) 18 MCG CAP.W.DEV 1 CAP INH DAILY COPD (Reported) Triage Note: PT BIBA FROM HOME WHERE SHE BECAME SOB UPON WAKING FROM A NAP. PT IS A&OX3, MODERATE DISTRESS. O2 SATS 90% ON NEB TX. PT RECIENVED 125 MG SOLUMEDROL IV FROM EMS. RT CALLED UPON ARRIVAL. LUNGS TIGHT AND DIMINISHED B/L. ABDI CHURCHILL AT BEDSIDE Triage Nurses Notes Reviewed? yes Onset: Abrupt Duration: minute(s): Timing: single episode today HPI: 72-year-old female with a history of COPD (on 2 L home O2), hypertension, hyperlipidemia presenting by ambulance for shortness of breath that began just prior to arrival after she woke up from a nap. EMS arrival patient was found to be hypoxic to 80 on 2 liters nasal cannula. Was given 1 DuoNeb and one 25 mg of Cipro Medrol en route with improvement in her oxygen saturation to high 90s. On arrival to the ED patient is satting high 90s with a DuoNeb running. Denies chest pain. Denies recent fevers, nasal congestion, rhinorrhea, cough, sputum, leg swelling. (Willow Garcia) Past History Travel History Traveled to [place] past 21 day No Medical History Any Pertinent Medical History? see below for history Neurological: TIA EENT: NONE Cardiovascular: hypertension, hyperlipidemia Respiratory: COPD, emphysema Gastrointestinal: NONE Hepatic: NONE Renal: NONE Musculoskeletal: NONE Psychiatric: anxiety Endocrine: NONE Blood Disorders: NONE Cancer(s): NONE PSYCHOMETRICIAN/Reproductive: NONE History of MRSA: No History of VRE: No History of CDIFF: No Surgical History Surgical History: non-contributory Psychosocial History Who do you live with Patient/Self Services at Home Home Health Aide, Oxygen, OT What is your primary language Mongolian Tobacco Use: Quit >30 days ago ETOH Use: denies use Illicit Drug Use: denies illicit drug use Family History Family History, If Any: MOTHER FH: emphysema Hx Contributory? No (Willow Garcia) Review of Systems Review of Systems Constitutional: Reports: no symptoms. EENTM: Reports: no symptoms. Respiratory: Reports: see HPI, short of breath. Denies: cough, sputum production, wheezing. Cardiovascular: Reports: no symptoms. GI: Reports: no symptoms. Genitourinary: Reports: no symptoms. Musculoskeletal: Reports: no symptoms. Skin: Reports: no symptoms. Neurological/Psychological: Reports: no symptoms. Hematologic/Endocrine: Reports: no symptoms. Immunologic/Allergic: Reports: no symptoms. (Willow Garcia) Physical Exam Physical Exam General Appearance: well developed/nourished, alert, awake, mild distress Head: atraumatic, normal appearance Eyes: Bilateral: normal appearance. Ears, Nose, Throat: normal ENT inspection Neck: normal inspection Respiratory: Diminished breath sounds throughout all lung rae, no Cardiovascular: regular rate/rhythm, normal peripheral pulses Gastrointestinal: soft, non-tender Back: normal inspection Extremities: normal inspection Neurologic/Psych: awake, alert, oriented x 3, normal mood/affect Skin: intact, normal color, warm/dry Core Measures ACS in differential dx? Yes CVA/TIA Diagnosis: No Sepsis Present: No Sepsis Focused Exam Completed? No (Jaden PATTON,Willow) Progress Differential Diagnoses I considered the following diagnoses in my evaluation of the patient: [COPD exacerbation vs bronchitis vs PNA vs viral syndrome vs ACS, low concern for PE] Plan of Care: Orders Procedure Date/time Status Regular Diet 02/25 B Active CBC WITHOUT DIFFERENTIAL 02/25 600 Active BASIC ELECTROLYTES PLUS BUN&CR 02/25 06 Active Regular Diet 02/24 D Complete ARTERIAL BLOOD GAS (GEN) 02/24 1900 Active PT Evaluate & Treat 02/24 1821 Active Pathway - chart 02/24 1821 Active Code Status 02/24 1821 Active Patient Data 02/24 1812 Active OXYGEN SETUP (GEN) 02/24 1738 Active Saline Lock 02/[address] in observation 02/24 1738 Active Vital Signs 02/24 1738 Active Activity/Ambulation 02/24 1738 Active Code Status 02/24 1738 Complete BIPAP 02/24 1647 Complete ARTERIAL BLOOD GAS (GEN) 02/24 1627 Complete Intake & Output 02/24 1505 Active ARTERIAL BLOOD GAS (GEN) 02/24 1458 Complete URINALYSIS 02/24 1458 Active TROPONIN LEVEL 02/24 1458 Complete MAGNESIUM 02/24 1458 Complete COMPREHENSIVE METABOLIC PANEL 02/24 1458 Complete CBC WITHOUT DIFFERENTIAL 02/24 1458 Complete EKG 02/24 1454 Active TRC EVALUATION (GEN) 02/24 UNK Active BIPAP 02/24 UNK Complete House Staff 02/24 UNK Active VTE Mechanical Prophylaxis 02/24 UNK Active Vital Signs 02/24 UNK Active Current Medications Sig/Oskar Start time Last Medication Dose Stop Time Status Admin Prednisone 10 MG DAILY@02/28 1900 AC 02/28 190 Prednisone 20 MG DAILY@02/27 190 AC 02/27 190 Prednisone 30 MG DAILY@02/26 AC 02/26 190 Prednisone 40 MG DAILY@02/25 AC 02/25 190 Atorvastatin Calcium 10 MG 1700 02/25 170 AC (Lipitor) Amlodipine Besylate 5 MG DAILY 02/25 900 AC (Norvasc) Aripiprazole 10 MG DAILY 02/25 900 AC (Abilify) Clopidogrel Bisulfate 75 MG DAILY 02/25 900 AC (Plavix) Cyanocobalamin 1,000 MCG DAILY 02/25 900 AC (Vitamin B12) Enoxaparin Sodium 40 MG DAILY 02/25 900 AC (Lovenox) Oxybutynin Chloride 5 MG BID 02/25 900 AC (Ditropan) Paroxetine HCl 60 MG DAILY 02/25 900 AC (Paxil) Polyethylene Glycol 17 GM DAILY 02/25 900 AC (Miralax) Fluticasone 2 PUF BID 02/24 2100 AC Propionate (Flovent) Mirtazapine 30 MG QPM 02/24 2100 AC (Remeron) Prednisone 50 MG DAILY 02/24 1900 CAN 03/01 1859 Prednisone 50 MG DAILY@02/24 1900 AC 02/24 190 Albuterol Sulfate 2 PUF Q4 HRS NEEDED PRN 02/24 184 AC (Ventolin) Albuterol Sulfate 3 ML TID PRN 02/24 184 AC (Proventil) Tiotropium [place] 1 PUF DAILY 02/24 183 AC (Spiriva) Magnesium Sulfate 1 GM Q2H 02/24 1500 AC 02/24 (Mag Sulfate in D5) 02/24 185 1805 Dextrose/Water 100 ML (D5W) Laboratory Tests 02/24/18 1535: pH 7.29 *L, pCO2 75 *H, pO2 107 H, HCO3 35 H, ABG O2 Sat (Measured) 97.0, P-50 (Temp Corrected) Y, Carboxyhemoglobin 1.1 L, O2 Concentration % 4L, Temperature 97.9, O2 Delivery Method NC, Phlebotomy Draw Site RIGHT RADIAL 02/24/18 1523: Anion Gap 10, Estimated GFR > 60, BUN/Creatinine Ratio 22.9, Glucose 87, Calcium 10.2, Magnesium 1.8, Total Bilirubin 0.5, AST 20, ALT 27, Alkaline Phosphatase 110, Troponin I 0.02, Total Protein 6.3, Albumin 3.8, Globulin 2.5, Albumin/ Globulin Ratio 1.5, CBC w Diff NO MAN DIFF REQ, RBC 3.62 L, MCV 90.8, MCH 28.9, MCHC 31.9 L, RDW 13.3, MPV 8.9, Gran % 83.5 H, Lymphocytes % 9.9 L, Monocytes % 5.4, Eosinophils % 0.9, Basophils % 0.3, Absolute Granulocytes 6.2, Absolute Lymphocytes 0.7 L, Absolute Monocytes 0.4, Absolute Eosinophils 0.1, Absolute Basophils 0 02/24/18 1510: pH 7.29 *L, pCO2 76 *H, pO2 139 H, HCO3 36 H, ABG O2 Sat (Measured) 98.0, P-50 (Temp Corrected) N, Carboxyhemoglobin 0.3 L, O2 Concentration % 8LPM, O2 Delivery Method NEB TX, Phlebotomy Draw Site RIGHT BRACHIAL Initial ABG showed acidosis and hypercarbia. However, pt clinically improved after duo nebs, steroids, and mag, was satting high 90's on baseline O2 with no tachypnea. Repeat ABG showed no improvement and pt was started on BIPAP. CXR unremarkable, WBC is WNL, low concern for bacterial etiology, abx deferred at this time. EKG shows NSR, trop 0.02. Pt tolerating BIPAP and remains cliniclally well appearing, A&Ox3, satting high 90's with no signs of respiratory distress. Therefore, will admit to [facility] for continued BIPAP, nebs, and steroids. Discussed with ED attending and hospitalist. Initial ED EKG: NSR (84) (Willow Garcia) Departure Departure Disposition: STILL A PATIENT Condition: Stable Clinical Impression Primary Impression: COPD exacerbation Referrals: Zina King MD (PCP/Family) Departure Forms: Customer Survey General Discharge Information Observation Note Spoke With: Shona Dunlap MD Physician Advisor Notified: RAMIREZ LONGORIA,PATIENCE Mishra (resident services coordinator spoke with) Place Patient In: Non-ED OBS Care Area Rationale for Observation: My rational for observation is as follows [continued nebulizer treatments, IV steroids, BIPAP]. (Willow Garcia) PA/FRUIT INSPECTOR Co-Sign Statement Statement: ED Attending supervision documentation- x I saw and evaluated the patient. I have also reviewed all the pertinent lab results and diagnostic results. I agree with the findings and the plan of care as documented in the PA's/FRUIT INSPECTOR's documentation. COPD exacerbation with CO2 retention requiring BiPAP [] I have reviewed the ED Record and agree with the PA's/FRUIT INSPECTOR's documentation. [] Additions or exceptions (if any) to the PAs/FRUIT INSPECTOR's note and plan are summarized below: [] (Annette LONGORIA,Nolan) Critical Care Note Critical Care Note Critical Care Time: non-applicable (Jaden PATTON,Willow)
[2018-02-24] MEDS ORDERED: VITAMIN B-121000 MC3 PO (17:43)
--- NOTE | 2018-02-24 18:10 | History & Physical ---
Lorraine LONGORIA,[facility] 02/24/18 1809: General Information and HPI History of Present Illness: Ms. Rivero is a 72-year-old with a past medical history of COPD on chronic 3 L home oxygen followed by Dr. Stevens, hypertension, hyperlipidemia, HFpEF, s/p carotid endarterectomy, TIA, osteoporosis and recent admission for COPD exacerbation who presents with shortness of breath. Patient was discharged on February 03 after a short admission for COPD exacerbation. She was discharged to short-term rehab and stayed there for about 2-3 weeks. She felt fine during this time. Afterwards, she went home and almost immediately started feeling poorly again. She describes progressive shortness of breath, weakness, fatigue, that was worse with exertion. Then today, she went to take a nap and when she woke up she could not breathe. She activated her Lifeline and was brought to the emergency room for further evaluation. She additionally describes a nonproductive cough and some loose stools about twice a day. She denies sick contacts, fever, chills, chest pain, sweats, abdominal pain, rash, dysuria, rash , or sore throat. She is a former smoker and drinks 1 alcoholic drink per day. She denies recreational drug use. Allergies/Medications Allergies: Coded Allergies: oxycodone (KNOCKED ME OUT 01/13/16) Home Med list Albuterol Sulfate (Ventolin Hfa) 90 MCG HFA.AER.AD 2 PUF INH Q4 HRS NEEDED PRN COPD (Reported) Albuterol Sulfate 2.5 MG/3 ML (0.083 %) VIAL.NEB 3 ML INH TID PRN Shortness of breath Amlodipine Besylate (Norvasc) 5 MG TABLET 1 TAB PO DAILY HEART (Reported) Aripiprazole (Abilify) 10 MG TABLET 1 TAB PO DAILY MENTAL HEALTH (Reported) Clopidogrel Bisulfate (Clopidogrel) 75 MG TABLET 1 TAB PO DAILY BLOOD THINNER (Reported) Cyanocobalamin (Vitamin B-12) 1,000 MCG TABLET 1 TAB PO DAILY SUPPLEMENT ( Reported) Fluticasone Propionate (Flovent Hfa) 220 MCG AER.W.ADAP 2 PUFF INH BID COPD ( Reported) Mirtazapine 30 MG TABLET 1 TAB PO QPM SLEEP (Reported) Paroxetine HCl 40 MG TABLET 1.5 TAB PO DAILY MENTAL HEALTH (Reported) Polyethylene Glycol 3350 (Miralax) 17 GRAM POWD.PACK 1 PAC PO DAILY PRN Constipation dissolve in water Simvastatin (Simvastatin*) 20 MG TABLET 1 TAB PO QPM CHOLESTEROL (Reported) Solifenacin Succinate (Vesicare) 10 MG TABLET 1 TAB PO DAILY BLADDER ( Reported) Tiotropium [place] (Spiriva) 18 MCG CAP.W.DEV 1 CAP INH DAILY COPD (Reported) Past History Travel History Traveled to [place] past 21 day No Medical History Neurological: TIA EENT: NONE Cardiovascular: hypertension, hyperlipidemia Respiratory: COPD, emphysema Gastrointestinal: NONE Hepatic: NONE Renal: NONE Musculoskeletal: NONE Psychiatric: anxiety Endocrine: NONE Blood Disorders: NONE Cancer(s): NONE PROSTHETIC DENTIST/Reproductive: NONE History of MRSA: No History of VRE: No History of CDIFF: No Surgical History Surgical History: non-contributory Past Family/Social History Family History Relations & Conditions if any MOTHER FH: emphysema Psychosocial History Who Do You Live With? self Services at Home: Home Health Aide, Oxygen, OT ETOH Use: denies use Illicit Drug Use: denies illicit drug use Living Will? no Functional Ability ADLs Independent: dressing, eating, toileting, bathing. Ambulation: independent IADLs Needs Assist: shopping, housework, finances, food prep, transportation, medication admin. Review of Systems Review of Systems Constitutional: Reports: no symptoms. EENTM: Reports: no symptoms. Cardiovascular: Reports: no symptoms. Respiratory: Reports: see HPI. GI: Reports: see HPI. Genitourinary: Reports: no symptoms. Musculoskeletal: Reports: no symptoms. Skin: Reports: no symptoms. Neurological/Psychological: Reports: no symptoms. Hematologic/Endocrine: Reports: no symptoms. Immunologic/Allergic: Reports: no symptoms. All Other Systems: Reviewed and Negative Exam & Diagnostic Data Last 24 Hrs of Vital Signs/I&O Vital Signs Date Time Temp Pulse Resp B/P B/P Pulse O2 O2 Flow FiO2 Mean Ox Delivery Rate 02/24 1806 80 96 02/24 1650 89 100 02/24 1635 97.9 02/24 1515 100 8L 02/24 1514 98.5 76 20 102/52 100 Aerosol 8L Mask 02/24 1500 94 8L Physical Exam General Appearance Alert, Oriented X3, Cooperative, No Acute Distress Cardiovascular Regular Rate, Normal S1, Normal S2 Lungs Clear to Auscultation, Normal Air Movement Abdomen Normal Bowel Sounds, Soft, No Tenderness Extremities No Edema, Normal Pulses, No Tenderness/Swelling Last 24 Hrs of Labs/Chauncey: Laboratory Tests 02/24/18 1535: pH 7.29 *L, pCO2 75 *H, pO2 107 H, HCO3 35 H, ABG O2 Sat (Measured) 97.0, P-50 (Temp Corrected) Y, Carboxyhemoglobin 1.1 L, O2 Concentration % 4L, Temperature 97.9, O2 Delivery Method NC, Phlebotomy Draw Site RIGHT RADIAL 02/24/18 1523: Anion Gap 10, Estimated GFR > 60, BUN/Creatinine Ratio 22.9, Glucose 87, Calcium 10.2, Magnesium 1.8, Total Bilirubin 0.5, AST 20, ALT 27, Alkaline Phosphatase 110, Troponin I 0.02, Total Protein 6.3, Albumin 3.8, Globulin 2.5, Albumin/ Globulin Ratio 1.5, CBC w Diff NO MAN DIFF REQ, RBC 3.62 L, MCV 90.8, MCH 28.9, MCHC 31.9 L, RDW 13.3, MPV 8.9, Gran % 83.5 H, Lymphocytes % 9.9 L, Monocytes % 5.4, Eosinophils % 0.9, Basophils % 0.3, Absolute Granulocytes 6.2, Absolute Lymphocytes 0.7 L, Absolute Monocytes 0.4, Absolute Eosinophils 0.1, Absolute Basophils 0 02/24/18 1510: pH 7.29 *L, pCO2 76 *H, pO2 139 H, HCO3 36 H, ABG O2 Sat (Measured) 98.0, P-50 (Temp Corrected) N, Carboxyhemoglobin 0.3 L, O2 Concentration % 8LPM, O2 Delivery Method NEB TX, Phlebotomy Draw Site RIGHT BRACHIAL Assessment/Plan Assessment: Ms. Rivero is a 72-year-old with a past medical history of COPD on chronic 3 L home oxygen followed by Dr. Stevens, hypertension, hyperlipidemia, HFpEF, s/p carotid endarterectomy, TIA, osteoporosis and recent admission for COPD exacerbation who presents with shortness of breath. On admission, vital signs were T 98.5, HR 76, RR 20, BP 102/52, saturating 100% on the liters nasal cannula. Laboratories were significant for hemoglobin 10.5, chloride 96, carbon dioxide 37, ABG showing respiratory acidosis. Chest x-ray showed findings consistent with COPD. She was treated with BiPAP, prednisone, ipratropium, and albuterol in the emergency room. She will be placed in observation in the ICU and treated for the following problems: 1. Acute on chronic hypercarbic respiratory failure 2. Normocytic anemia #Acute on chronic hypercarbic respiratory failure: Patient presents with history of shortness of breath with recent admission for COPD exacerbation. Her ABG shows severe hypercarbia with respiratory acidosis. She is being treated with BiPAP and has improved since presenting to the emergency room. She has not previously used BiPAP. -Prednisone, short taper -Albuterol -Fluticasone -Consider pulmonology consult -PT consult -BiPAP as needed, ABG at 2000 -[facility] nebs -Avoid sedation -Consideration should be made towards initiating triple inhaler therapy (Frederick Santos, Ehsan Le, Caren Yap, Arcadio Motta, Marco Stewart, Lalito Phelps, Ryan Steward et al. "Once-Daily Single-Inhaler Triple versus Dual Therapy in Patients with COPD." [employer] (2018).) #Normocytic anemia: Likely anemia of chronic disease -Continue to monitor #Chronic medical problems: -Continue other home medications DVT prophylaxis with heparin Heart healthy diet DNR/DNI As Ranked By This Provider Problem List: 1. Hypercapnic respiratory failure Core Measures/Misc (07/16) Acute Coronary Syndrome ACS Diagnosis: No Congestive Heart Failure Congestive Heart Failure Diagnosis No Cerebrovascular Accident CVA/TIA Diagnosis: No VTE (View Protocol) VTE Risk Factors Age>40 No Mechanical VTE Prophylaxis d/t N/A MechProphylax Ordered No VTE Pharm Prophylaxis d/t NA PharmProphylax ordered Sepsis (View protocol) Sepsis Present: No ChavoHoracio 02/24/18 1904: Resident Review Statement Resident Statement: examined this patient, discussed with exercise science internship, agreed with exercise science internship, discussed with family, reviewed images, amended to note Other Findings: The patient is a 72-year-old with a past medical history of COPD (emphysema) on chronic 3 L home oxygen, hypertension, hyperlipidemia, stage I diastolic heart failure, carotid endarterectomy, previous TIA, osteoporosis that presented to the emergency room for evaluation of shortness of breath. She presented to the ED complaining of progressively worsening shortness of breath symptoms since her discharge from short-term rehabilitation on 2017. She also complained of intermittent Non productive cough. She denies any fever, chills, runny nose, sore throat, nausea, vomiting or constipation. She does admit to diarrhea that started recently. This am at home, on EMS arrival patient was found to be hypoxic to 80 on 2 liters nasal cannula. Was given 1 DuoNeb and 125 mg of Solu-Medrol en route with improvement in her oxygen saturation to high 90s. Vital signs in the ER showed a Temp of 97.9 F, pulse of 76 bpm, BP 102/52 mmhg, PO2 100 % on 8 L aerosol mask. Physical exam at presentation General Appearance Alert, Oriented X3, Cooperative, Mild Distress, on Bipap HEENT Atraumatic, PERRLA, EOMI, Mucous Membr. moist/pink Neck Supple, No JVD Cardiovascular Normal S1, Normal S2, No Murmurs Lungs decreased air entery in both lower lung rae, good air movement in upper and middle lung rae, No wheezing, transmitted sounds audible from Bipap+ Abdomen Normal Bowel Sounds, Soft, No Tenderness Neurological Normal Speech Extremities No Clubbing, No Cyanosis, No Edema Labs on presentation: Na 143, K 4.8, Cl 93, Creat 0.7. CBC: WBC 7.5, Hb 10.5, Platelets 260 Chest X ray: No acute cardiopulmonary abnormality Assessment 1. Acute hypoxemia, Hypercarbia from chronic COPD with insufficient metabolic compensation 2. Hypertension. Stable 3. History of TIA 4. History of stage I diastolic heart failure 5. Depression Plan * ICU obs COPD exacerbation. Patient received IV solumedrol 125 mg once enroute. PO Prednisone for 5 days. * [facility] evaluation for nebulizer therapy * Continue bipap support, repeat ABG. * Pulmonology consult in the AM placed * Continue clopidogrel, simvastatin * Continue aripiprazole, paroxetine and mirtazapine * DVT prophylaxis with ALPS and pharmacological * Patient is DNR/DNI Regular diet Yobani LONGORIA, [facility] 02/24/180: Attending MD Review Statement Attending Statement Attending MD Statement: examined this patient, discuss w/resident/PA/[employer], agreed w/resident/PA/[employer], reviewed images, amended to note Attending Assessment/Plan: 72 yo F ex-smoker with chronic hypoxic and hypercarbic respiratory failure, advanced COPD on 3L O2, HTN, HLD, CVA s/p left CEA, pulmonary nodules, was recently admitted for COPD exacerbation (01/31 02/03) and discharged to short term rehab. She was discharged home on February 21. Since then, patient states she has had progressive exertional dyspnea and nonproductive cough. When she woke up from her nap today, she was in severe respiratory distress and activated her lifealert. She was hypoxic to 80's on 2L. She received duonebs and IV solumedrol enroute. She denies sick contacts other than the patients at the rehab. No fever, chills, sore throat, lightheadedness or palpitations. She denies any previous ICU admissions, intubation or Bipap use for COPD. However, later on when I reviewed her chart, it was noted that she was placed on bipap for a few hours in the ER during her admission in January 2017 for COPDE. Patient follows with Dr. Stevens. She does report nonbloody loose stools, couple of times every day for the past 2 -3 days. The only recent antibiotic use is Azithromycin during her most recent admission for COPDE. Vitals: afebrile, HR 60-70's, BP 104/60, sats 98% on Bipap. Exam: AAO, in mild respiratory distress, on Bipap, dry mucosa, PERRL, Chest b/l reduced air entry in all rae, with no wheeze or rhonchi, Heart S1S2 regular, LE: no edema. Labs: no leukocytosis, H/H stable, HCO3 37, trop 0.02. ABG 7.29/76/139/36 on 8L O2. UA clear. CXR: COPD, stable minimal blunting of both costophrenic angles favors normal lung scarring, no focal consolidation. EKG: sinus rhythm, PVC's, prominent T-waves in V3-4 not peaked, Qtc 472. Echo (2014): EF > 65%, stage 1 diastolic dysfunction. Assessment and plan: 1. Acute on chronic hypoxic and hypercarbic respiratory failure requiring Bipap use 2. Severe COPD with exacerbation 3. Diarrhea of unclear etiology, rule out Cdiff 4. Pulmonary nodules stable as per most recent CT 5. Essential hypertension 6. Chronic anemia probably iron deficiency - 23 hour observation in the ICU (was placed for logistic reason of patient being a new Bipap user) - Total respiratory care with scheduled and PRB nebs - IV solumedrol 40 Q8, can taper to 40 BID in AM and then slow prednisone taper - No need for antibiotics - Check flu swab - Add robitussin or mucinex BID for cough. - Continue Bipap overnight, repeat ABG and ensure improving respiratory acidosis. - Repeat ABG at 8 pm 7.32/67/93/35. Bipap settings changed to 16/4, RR 24 and FiO2 of 30%. - Pulm consult (Dr. Saenz) in AM - PT consult - If persistent diarrhea, check stool studies Cdiff, culture. Hold off laxative meds. - Resume home meds DVT ppx Lovenox. DNR/I. If stable respiratory status off Bipap, can downgrade to GM in AM TTS > 45 mins
[2018-02-25 01:50] VITALS: BP 138/60
[2018-02-25 05:52] LABS: ABSOLUTE BASOPHIL COUNT 0 /CUMM (0.0-0.2); ABSOLUTE EOSINOPHIL COUNT 0 /CUMM (0.0-0.7); ABSOLUTE LYMPH COUNT 0.2 /CUMM (1.2-3.4); ABSOLUTE MONOCYTE COUNT 0 /CUMM (0.10-0.60); BASOPHIL % 0 % (0.0-2.0); EOSINOPHIL % 0.1 % (0-5); GRANULOCYTE % 94.6 % (42.2-75.2); HEMATOCRIT 30.4 % (37-47); MEAN CORPUSCULAR HGB 29.3 PG (27.0-31.0); MEAN CORPUSCULAR HGB CONC 32.8 G/DL (33.0-37.0); MEAN CORPUSCULAR VOLUME 89.3 FL (81.0-99.0); MEAN PLATELET VOLUME 9.2 FL (7.4-10.4); PLATELET COUNT 261 /CUMM (130-400); RBC DISTRIBUTION WIDTH 13.1 % (11.5-14.5); RED BLOOD CELL CT 3.41 /CUMM (4.20-5.40)
[2018-02-25 06:23] LABS: WHITE BLOOD CELL COUNT 5.3 /CUMM (4.8-10.8)
--- NOTE | 2018-02-25 08:41 | PN- Resident CRCU ---
[place] 02/25/18 0841: Subjective HPI/CRCU Issues: 1. Acute on chronic hypoxic and hypercarbic respiratory failure requiring Bipap use 2. Severe COPD with exacerbation 3. Diarrhea of unclear etiology, rule out Cdiff 4. Pulmonary nodules stable as per most recent CT 5. Essential hypertension 6. Chronic anemia probably iron deficiency 24 Hour Events: Patient is completely alert awake and oriented 3. No acute events overnight. Patient is off from BiPAP currently She is saturating at 94 on 3 L nasal cannula which is her baseline ABG showed much improvement 7.42, 34, 53 Patient reports shortness of breath on exertion, nonproductive cough No chest pain, palpitations, fever or chills Vitals afebrile, heart rate 70, respiratory rate 20, blood pressure 147/62, saturating at 94 on 3 L Objective Vital Signs & I&O Last 8 Hrs of Vitals and I&O: Intake & Output 02/25 1600 Intake Total Output Total Balance Patient 44.906 kg Weight Weight Bed scale Measurement Method Exam General Appearance: well developed/nourished, alert, awake, comfortable Other Physical Findings: General Appearance Alert, Oriented X3, Cooperative, off from Bipap HEENT Atraumatic, PERRLA, EOMI, Mucous Membr. moist/pink Neck Supple, No JVD Cardiovascular Normal S1, Normal S2, No Murmurs Lungs decreased air entery in both lower lung rae, good air movement in upper and middle lung rae, No wheezing Abdomen Normal Bowel Sounds, Soft, No Tenderness Neurological Normal Speech Extremities No Clubbing, No Cyanosis, No Edema Current Medications: Current Medications Sig/Oskar Start time Last Medication Dose Route Stop Time Status Admin Albuterol Sulfate 3 ML EVERY 4 HRS/AWAKE 02/25 1200 AC 02/25 INH 1012 Albuterol Sulfate 2 PUF Q4 HRS NEEDED PRN 02/24 1845 AC INH Albuterol Sulfate 3 ML TID PRN 02/24 1845 DC 02/25 INH 0521 Albuterol Sulfate 3 ML ONCE ONE 02/24 1500 DC 02/24 INH 02/24 1501 1500 Albuterol Sulfate 3 ML ONCE ONE 02/24 1500 DC 02/24 INH 02/24 1501 1515 Amlodipine Besylate 5 MG DAILY 02/25 0900 AC 02/25 PO 0902 Aripiprazole 10 MG DAILY 02/25 0900 AC 02/25 PO 0902 Atorvastatin Calcium 10 MG 1700 02/25 1700 AC PO Budesonide/ 2 PUF BID 02/25 1049 AC Formoterol Fumarate INH Clopidogrel Bisulfate 75 MG DAILY 02/25 0900 AC 02/25 PO 0902 Cyanocobalamin 1,000 MCG DAILY 02/25 0900 AC 02/25 PO 0902 Enoxaparin Sodium 40 MG DAILY 02/25 0900 AC 02/25 SC 0902 Fluticasone 2 PUF BID 02/24 2100 DC 02/25 Propionate INH 0902 Guaifenesin 600 MG Q12 02/25 0900 AC 02/25 PO 0902 Ipratropium [place] 2.5 ML EVERY 4 HRS/AWAKE 02/25 1200 AC 02/25 INH 1012 Ipratropium [place] 2.5 ML ONCE ONE 02/24 1500 DC 02/24 INH 02/24 1501 1500 Magnesium Sulfate 1 GM Q2H 02/24 1500 DC 02/24 Dextrose/Water 100 ML IV 02/24 1859 1805 Methylprednisolone 40 MG Q8 02/24 2200 AC 02/25 IV 0528 Mirtazapine 30 MG QPM 02/24 2100 DC PO Mirtazapine 15 MG QPM 02/24 2100 AC 02/24 PO 2142 Oxybutynin Chloride 5 MG BID 02/25 0900 AC 02/25 PO 0902 Paroxetine HCl 60 MG DAILY 02/25 0900 AC 02/25 PO 0902 Polyethylene Glycol 17 GM DAILY 02/25 0900 CAN PO Prednisone 10 MG DAILY@1900 02/28 1900 CAN PO 02/28 190 Prednisone 20 MG DAILY@1900 02/27 1900 CAN PO 02/27 190 Prednisone 30 MG DAILY@0 02/26 1900 CAN PO 02/26 190 Prednisone 40 MG DAILY@0 02/25 1900 CAN PO 02/25 190 Prednisone 0 .STK-MED ONE 02/24 1938 DC PO Prednisone 0 .STK-MED ONE 02/24 1938 DC PO Prednisone 50 MG DAILY 02/24 1900 CAN PO 03/01 185 Prednisone 50 MG DAILY@0 02/24 1900 DC 02/24 PO 02/24 190 1932 Tiotropium [place] 1 PUF DAILY 02/24 1835 DC 02/25 INH 0903 Impression/Plan Impression/Problem List Impression: 72 yo F ex-smoker with chronic hypoxic and hypercarbic respiratory failure, advanced COPD on 3L O2, HTN, HLD, CVA s/p left CEA, pulmonary nodules, was recently admitted for COPD exacerbation (01/31 02/03) and discharged to short term rehab. She was discharged home on February 21. Patient now presented with worsening shortness of breath, respiratory distress, found to have acute hypoxia and hypercapnia respiratory failure requiring BiPAP and ICU level of care. -------- Vitals: afebrile, HR 60-70's, BP 104/60, sats 98% on Bipap. Labs: no leukocytosis, H/H stable, HCO3 37, trop 0.02. ABG 7.29/76/139/36 on 8L O2. UA clear. CXR: COPD, stable minimal blunting of both costophrenic angles favors normal lung scarring, no focal consolidation. EKG: sinus rhythm, PVC's, prominent T-waves in V3-4 not peaked, Qtc 472. Echo (2015): EF > 65%, stage 1 diastolic dysfunction. Assessment and plan: 1. Acute on chronic hypoxic and hypercarbic respiratory failure requiring Bipap use 2. Severe COPD with exacerbation 3. Diarrhea of unclear etiology, rule out Cdiff 4. Pulmonary nodules stable as per most recent CT 5. Essential hypertension 6. Chronic anemia probably iron deficiency - Acute on chronic hypoxic and hypercapnic respiratory failure patient had progressive exertional dyspnea and nonproductive cough. She was hypoxic to 80's on 2L. No fever, chills, sore throat, lightheadedness or palpitations. She denies any previous ICU admissions, intubation or Bipap use for COPD. she was placed on bipap for a few hours in the ER during her admission in January 2017 for COPDE. Patient follows with Dr. Stevens. She was hypoxic up to 80s, hypercapnic requiring BiPAP at the time of admission. ABG at the time of admission 7.29, 76, 36. * Acute on chronic hypoxia, hypercapnia most possibly from COPD exacerbation * ICU admit * Monitor vitals every shift * Off from BiPAP with improvement of ABGs 7.42, 53, 34 * Currently requiring 3 L oxygen supplementation which is her baseline with saturations remaining above 92 * TRC nebs * Continue albuterol, ipratropium * Flovent was discontinued * Patient was started on Symbicort as per director immunology recommendations * Continue IV methylprednisolone 40 every 8 today * Taper steroids to 40 every 12 tomorrow * Chest x-ray was reviewed, no source of infection, no need for antibiotics * fLU SWAB was negative * Mucinex twice daily for cough * BiPAP as required tonight * ABGs if her saturations worsen or mentation changes * [employer] Dr. Saenz on board Diarrhea She does report nonbloody loose stools, couple of times every day for the past 2 -3 days. The only recent antibiotic use is Azithromycin during her most recent admission for COPDE. * Denies further diarrhea since admission * We will check stool studies C. difficile and cultures if needed * Hold of laxatives Hypertension-continue amlodipine 5 mg daily Depression continue Abilify, mirtazapine and paroxetine CVA status post left CEA continue Plavix 75 daily Hyperlipidemia continue statin daily urine retention continue oxybutynin Pulmonary nodules per recent CT -patient needs outpatient follow-up DVT prophylaxis subcutaneous Lovenox Patient is DNR/DNI Regular diet Pain pathway Tylenol Currently off from BiPAP Downgraded to general medicine floor Problem List: 1. COPD exacerbation 2. Hypercapnic respiratory failure Pain Ratin Tomorrow's Labs & Rationales: cbc bep Plan DVT/Prophylaxis: mechanical, pharmacological Fady Saenz MD 02/25/18 0958: Attending MD Review Statement Attending Sign Off Attending Cosign Statement: I have: examined this patient, reviewed aval EMR data, personally reviewd images, discussd w/resident/PA/INCOME TAX ADVISOR, discussed mgmt plan w/derek, discussed mgmt plan w/CM, discussed mgmt plan w/pt, agreed w/resident/PA/INCOME TAX ADVISOR, amended to note. Other Findings: Impression 72 year old woman * COPD exacerbation with acute hypercarbic and hypoxemic respiratory failure Plan Respiratory -solumedrol 40mg iv q8h -trc/nebs -off bipap currently, wishes to not use it unless absolutely necessary, will dc for now -would give one more night of bipap if pt accepts -dc spiriva while hospitalized, can resume as outpatient -change nebs to albuterol/ipratropium -dc flovent -add symbicort ID -no need for abx at this time -monitor fevers, wbc CVS -monitor hemodynamics Heme -chronic anemia, stable -monitor cbc, coags Metabolic -monitor creatinine, electrolytes, ins/outs Alimentary -now that off bipap, can begin diet Neuro -no acute issues TTS 40 min Downgrade to gen med confirmed DNR/DNI status
[2018-02-25 08:59] VITALS: BP 145/62
[2018-02-25 15:31] VITALS: BP 120/70
--- NOTE | 2018-02-25 16:54 | Transfer of Care Summary ---
Hospital Course Course Hospital Course: 72 yo F ex-smoker with chronic hypoxic and hypercarbic respiratory failure, advanced COPD on 3L O2, HTN, HLD, CVA s/p left CEA, pulmonary nodules, was recently admitted for COPD exacerbation (01/31 02/03) and discharged to short term rehab. She was discharged home on February 21. Patient now presented with worsening shortness of breath, respiratory distress, found to have acute hypoxia and hypercapnia respiratory failure requiring BiPAP and ICU level of care. -------- Vitals: afebrile, HR 60-70's, BP 104/60, sats 98% on Bipap. Labs: no leukocytosis, H/H stable, HCO3 37, trop 0.02. ABG 7.29/76/139/36 on 8L O2. UA clear. CXR: COPD, stable minimal blunting of both costophrenic angles favors normal lung scarring, no focal consolidation. EKG: sinus rhythm, PVC's, prominent T-waves in V3-4 not peaked, Qtc 472. Echo (2015): EF > 65%, stage 1 diastolic dysfunction. Assessment and plan: 1. Acute on chronic hypoxic and hypercarbic respiratory failure requiring Bipap use 2. Severe COPD with exacerbation 3. Diarrhea of unclear etiology, rule out Cdiff 4. Pulmonary nodules stable as per most recent CT 5. Essential hypertension 6. Chronic anemia probably iron deficiency - Acute on chronic hypoxic and hypercapnic respiratory failure patient had progressive exertional dyspnea and nonproductive cough. She was hypoxic to 80's on 2L. No fever, chills, sore throat, lightheadedness or palpitations. She denies any previous ICU admissions, intubation or Bipap use for COPD. she was placed on bipap for a few hours in the ER during her admission in January 2017 for COPDE. Patient follows with Dr. Stevens. She was hypoxic up to 80s, hypercapnic requiring BiPAP and ICU monitoring at the time of admission. ABG at the time of admission 7.29, 76, 36. She was on BiPAP overnight. currently Off from BiPAP with improvement of ABGs 7.42, 53, 34. she is requiring 3 L oxygen supplementation which is her baseline with saturations remaining above 92. Use BiPAP as required. Continue TRC nebs, albuterol, ipratropium. Flovent was discontinued and patient was started on Symbicort as per Dr. Saenz's recommendation. She was started on IV methylprednisolone 40 every 8 hours. Continue to taper IV methylprednisolone. Chest x-ray was reviewed, no source of infection, no need for antibiotics. fLU SWAB was negative. Mucinex twice daily for cough. Diarrhea She does report nonbloody loose stools, couple of times every day for the past 2 -3 days. The only recent antibiotic use is Azithromycin during her most recent admission for COPDE. Denies any more diarrhea since admission. check stool studies C. difficile and cultures if needed Hypertension-continue amlodipine 5 mg daily Depression continue Abilify, mirtazapine and paroxetine CVA status post left CEA continue Plavix 75 daily Hyperlipidemia continue statin daily urine retention continue oxybutynin Pulmonary nodules per recent CT -patient needs outpatient follow-up DVT prophylaxis subcutaneous Lovenox Patient is DNR/DNI Regular diet Pain pathway Tylenol Currently off from BiPAP Downgraded to general medicine floor Assessment/Plan: .
[2018-02-25 22:48] VITALS: BP 130/58
[2018-02-26 06:33] VITALS: BP 140/60
--- NOTE | 2018-02-26 07:25 | PN- Housestaff ---
See Addendum Subjective Follow-up For: Hypercarbic respiratory failure Subjective: No overnight events. The patient is using BiPAP at night and her respiratory status is improved. She is now on her home 3 L oxygen and feeling better. However, she would like to stay in the hospital another day. Review of Systems Constitutional: Reports: no symptoms. EENTM: Reports: no symptoms. Cardiovascular: Reports: no symptoms. Respiratory: Reports: see HPI. Gastrointestinal: Reports: no symptoms. Genitourinary: Reports: no symptoms. Musculoskeletal: Reports: no symptoms. Skin: Reports: no symptoms. Neurological/Psychological: Reports: no symptoms. Hematologic/Endocrine: Reports: no symptoms. Immunologic/Allergic: Reports: no symptoms. Objective Last 24 Hrs of Vital Signs/I&O Vital Signs Date Time Temp Pulse Resp B/P B/P Pulse O2 O2 Flow FiO2 Mean Ox Delivery Rate 02/26 0633 98.3 74 20 140/60 97 02/26 0623 80 98 02/26 0304 82 97 02/26 0030 77 97 02/26 0000 95 BIPAP 30% 02/25 2248 98.0 94 22 130/58 100 Nasal Cannula 02/25 2245 74 94 02/25 1650 92 Nasal 3.0L Cannula 02/25 1600 Nasal 2.0L Cannula 02/25 1531 98.6 90 20 120/70 99 Nasal 2.0L Cannula 02/25 1051 98 Nasal 3.0L Cannula 02/25 0859 98.8 79 20 145/62 94 Nasal 3.0L Cannula 02/25 0823 78 97 02/25 0800 96 Nasal 3.0L Cannula Intake & Output 02/26 0800 02/26 0000 02/25 1600 Intake Total 240 200 540 Output Total Balance 240 200 540 Intake, IV 20 20 Intake, Oral 240 180 520 Patient 44.906 kg Weight Weight Bed scale Measurement Method Physical Exam General Appearance: Alert, Oriented X3, Cooperative, No Acute Distress Cardiovascular: Regular Rate, Normal S1, Normal S2 Lungs: Clear to Auscultation Abdomen: Normal Bowel Sounds, Soft, No Tenderness Extremities: No Edema, Normal Pulses, No Tenderness/Swelling Current Medications: Current Medications Sig/Oskar Start time Last Medication Dose Route Stop Time Status Admin Albuterol Sulfate 3 ML EVERY 4 HRS/AWAKE 02/25 1200 AC 02/25 INH 1649 Albuterol Sulfate 2 PUF Q4 HRS NEEDED PRN 02/24 1845 AC INH Alprazolam 0.25 MG ONCE ONE 02/26 0015 DC 02/26 PO 02/26 0016 0016 Amlodipine Besylate 5 MG DAILY 02/25 0900 AC 02/25 PO 0902 Aripiprazole 10 MG DAILY 02/25 0900 AC 02/25 PO 0902 Atorvastatin Calcium 10 MG 1700 02/25 1700 AC 02/25 PO 1637 Budesonide/ 2 PUF BID 02/25 1049 AC 02/25 Formoterol Fumarate INH 2127 Clopidogrel Bisulfate 75 MG DAILY 02/25 0900 AC 02/25 PO 0902 Cyanocobalamin 1,000 MCG DAILY 02/25 0900 AC 02/25 PO 0902 Enoxaparin Sodium 40 MG DAILY 02/25 0900 AC 02/25 SC 0902 Fluticasone 2 PUF BID 02/24 2100 DC 02/25 Propionate INH 0902 Guaifenesin 600 MG Q12 02/25 0900 AC 02/25 PO 2127 Ipratropium [place] 2.5 ML EVERY 4 HRS/AWAKE 02/25 1200 AC 02/25 INH 1649 Methylprednisolone 40 MG Q8 02/24 2200 AC 02/26 IV 0601 Mirtazapine 15 MG QPM 02/24 2100 AC 02/25 PO 2127 Oxybutynin Chloride 5 MG BID 02/25 0900 AC 02/25 PO 2127 Paroxetine HCl 60 MG DAILY 02/25 0900 AC 02/25 PO 0902 Tiotropium [place] 1 PUF DAILY 02/24 1835 DC 02/25 INH 0903 Assessment/Plan Assessment: Ms. Rivero is a 72-year-old with a past medical history of COPD on chronic 3 L home oxygen followed by Dr. Stevens, hypertension, hyperlipidemia, HFpEF, s/p carotid endarterectomy, TIA, osteoporosis and recent admission for COPD exacerbation who presents with shortness of breath. Problem List: 1. Acute on chronic hypercarbic respiratory failure 2. Normocytic anemia #Acute on chronic hypercarbic respiratory failure: Patient presented with history of shortness of breath with recent admission for COPD exacerbation. Her ABG showed severe hypercarbia with respiratory acidosis. This improved with BiPAP. However this the first and the patient is requiring BiPAP and therefore she was initially admitted to the ICU. She was downgraded to general medicine on 02/25/18. Her breathing has improved and she is now on her home 3 L oxygen. -methylpred, short taper -Albuterol -Fluticasone -Appreciate pulmonology recommendations -PT consult -TRC nebs -Avoid sedation -Consideration should be made towards initiating triple inhaler therapy #Normocytic anemia: Likely anemia of chronic disease -Continue to monitor #Chronic medical problems: -Continue other home medications DVT prophylaxis with heparin Heart healthy diet DNR/DNI Problem List: 1. COPD exacerbation Pain Ratin Pain Location: no Pain Goal: Remain pain free Pain Plan: see a/p Tomorrow's Labs & Rationales: no
[2018-02-26 09:06] LABS: ABSOLUTE BASOPHIL COUNT 0 /CUMM (0.0-0.2); ABSOLUTE EOSINOPHIL COUNT 0 /CUMM (0.0-0.7); ABSOLUTE GRANULOCYTE CT 14.3 /CUMM (1.4-6.5); ABSOLUTE LYMPH COUNT 0.2 /CUMM (1.2-3.4); ABSOLUTE MONOCYTE COUNT 0.4 /CUMM (0.10-0.60); BASOPHIL % 0 % (0.0-2.0); EOSINOPHIL % 0 % (0-5); HEMATOCRIT 31.6 % (37-47); MEAN CORPUSCULAR HGB 29.5 PG (27.0-31.0); MEAN CORPUSCULAR HGB CONC 32.8 G/DL (33.0-37.0); MEAN CORPUSCULAR VOLUME 89.9 FL (81.0-99.0); MEAN PLATELET VOLUME 9.2 FL (7.4-10.4); RBC DISTRIBUTION WIDTH 13.4 % (11.5-14.5); RED BLOOD CELL CT 3.52 /CUMM (4.20-5.40)
[2018-02-26 10:00] LABS: GRANULOCYTE % 96.1 % (42.2-75.2); PLATELET COUNT 263 /CUMM (130-400); WHITE BLOOD CELL COUNT 14.9 /CUMM (4.8-10.8)
--- NOTE | 2018-02-26 12:47 | PN- Pulmonary ---
Subjective HPI/Critical Care Issues: Patient seen and examined this morning. She appears to be doing much better than the ICU. Overall she has been improving. She is DNR/DNI and is declining further BiPAP use unless she feels the need. Objective Current Medications: Current Medications Sig/Oskar Start time Last Medication Dose Route Stop Time Status Admin Albuterol Sulfate 3 ML EVERY 4 HRS/AWAKE 02/25 1200 AC 02/26 INH 1120 Albuterol Sulfate 2 PUF Q4 HRS NEEDED PRN 02/24 1845 AC INH Alprazolam 0.25 MG ONCE ONE 02/26 0015 DC 02/26 PO 02/26 0016 0016 Amlodipine Besylate 5 MG DAILY 02/25 09 AC 02/26 PO 0940 Aripiprazole 10 MG DAILY 02/25 09 AC 02/26 PO 0941 Atorvastatin Calcium 10 MG 1700 02/25 1700 AC 02/25 PO 1637 Budesonide/ 2 PUF BID 02/25 1049 AC 02/26 Formoterol Fumarate INH 0944 Clopidogrel Bisulfate 75 MG DAILY 02/25 09 AC 02/26 PO 0938 Cyanocobalamin 1,000 MCG DAILY 02/25 0900 AC 02/26 PO 0938 Enoxaparin Sodium 40 MG DAILY 02/25 0900 AC 02/25 SC 0902 Guaifenesin 600 MG Q12 02/25 09 AC 02/26 PO 0941 Ipratropium [place] 2.5 ML EVERY 4 HRS/AWAKE 02/25 1200 AC 02/26 INH 1120 Methylprednisolone 40 MG Q12H 02/26 1800 AC IV Methylprednisolone 40 MG Q8 02/24 2200 DC 02/26 IV 0601 Mirtazapine 15 MG QPM 02/24 2100 AC 02/25 PO 2127 Oxybutynin Chloride 5 MG BID 02/25 0900 AC 02/26 PO 0940 Paroxetine HCl 60 MG DAILY 02/25 09 AC 02/26 PO 0939 Vital Signs & I&O Last 24 Hrs of Vitals and I&O: Vital Signs Date Time Temp Pulse Resp B/P B/P Pulse O2 O2 Flow FiO2 Mean Ox Delivery Rate 02/26 0853 98 Nasal 3.0L Cannula 02/26 0800 Nasal 3.0L Cannula 02/26 0633 98.3 74 20 140/60 97 02/26 0623 80 98 02/26 0304 82 97 02/26 0030 77 97 02/26 0000 95 BIPAP 30% 02/25 2248 98.0 94 22 130/58 100 Nasal Cannula 02/25 2245 74 94 02/25 1650 92 Nasal 3.0L Cannula 02/25 1600 Nasal 2.0L Cannula 02/25 1531 98.6 90 20 120/70 99 Nasal 2.0L Cannula Intake & Output 02/26 1600 02/26 0800 02/26 0000 Intake Total 240 200 Output Total Balance 240 200 Intake, IV 20 Intake, Oral 240 180 Exam Other Physical Findings: Patient is awake and alert. Her heart exam is normal. Her lung examination shows a prolonged end expiratory phase with rare rhonchi and diminished airway sounds. No edema. Results Last 24 Hrs of Lab Results: Laboratory Tests 02/26/18 0730: Anion Gap 8, Estimated GFR > 60, Glucose 124 H, Calcium 9.9, Phosphorus 3.7, Magnesium 2.5 H, Total Bilirubin 0.2, AST 20, ALT 27, Albumin 3.7, CBC w Diff NO MAN DIFF REQ, RBC 3.52 L, MCV 89.9, MCH 29.5, MCHC 32.8 L, RDW 13.4, MPV 9.2, Gran % 96.1 H, Lymphocytes % 1.4 L, Monocytes % 2.5, Eosinophils % 0, Basophils % 0, Absolute Granulocytes 14.3 H, Absolute Lymphocytes 0.2 L, Absolute Monocytes 0.4, Absolute Eosinophils 0, Absolute Basophils 0 Impression/Plan Impression/Plan Impression/Plan: Impression 72 year old woman * COPD exacerbation with acute hypercarbic and hypoxemic respiratory failure Plan -reduce solumedrol 40mg iv q12h -trc/nebs -off bipap currently, wishes to not use it unless absolutely necessary, will dc for now -albuterol/ipratropium -can resume spiriva on an outpatient basis -symbicort instead of flovent - also dc with symbicort, rinsing of the mouth -no need for abx at this time DVT prophylaxis at all times
[2018-02-26] MEDS ORDERED: SYMBICORT 16010.2 GM INH (13:07)
[2018-02-26 14:28] VITALS: BP 140/60
[2018-02-26 22:51] VITALS: BP 130/60
[2018-02-27 06:47] VITALS: BP 154/78
--- NOTE | 2018-02-27 07:10 | PN- Housestaff ---
See Addendum Subjective Follow-up For: COPD Subjective: No overnight events. The patient's breathing has continued to improve and she feels like she is back at her baseline. However she does not want to go home because she is nervous about having shortness of breath again. She has no chest pain or other complaints. Review of Systems Constitutional: Reports: no symptoms. EENTM: Reports: no symptoms. Cardiovascular: Reports: no symptoms. Respiratory: Reports: see HPI. Gastrointestinal: Reports: no symptoms. Genitourinary: Reports: no symptoms. Musculoskeletal: Reports: no symptoms. Skin: Reports: no symptoms. Neurological/Psychological: Reports: no symptoms. Hematologic/Endocrine: Reports: no symptoms. Immunologic/Allergic: Reports: no symptoms. Objective Last 24 Hrs of Vital Signs/I&O Vital Signs Date Time Temp Pulse Resp B/P B/P Pulse O2 O2 Flow FiO2 Mean Ox Delivery Rate 02/27 0647 97.4 78 18 154/78 99 Nasal 3.0L Cannula 02/27 0000 Nasal 3.0L Cannula 02/26 2251 98.3 86 19 130/60 99 Nasal Cannula 02/26 1730 Nasal 3.0L Cannula 02/26 1700 109 93 02/26 1635 99 Nasal 3.0L Cannula 02/26 1428 98.5 79 19 140/60 100 02/26 0853 98 Nasal 3.0L Cannula 02/26 0800 Nasal 3.0L Cannula Intake & Output 02/27 0800 02/27 0000 02/26 1600 Intake Total 100 800 Output Total 200 Balance -100 800 Intake, Oral 100 800 Output, Urine 200 Physical Exam General Appearance: Alert, Oriented X3, Cooperative, No Acute Distress Cardiovascular: Regular Rate, Normal S1, Normal S2 Lungs: Clear to Auscultation Abdomen: Normal Bowel Sounds, Soft, No Tenderness Extremities: No Edema, Normal Pulses, No Tenderness/Swelling Current Medications: Current Medications Sig/Oskar Start time Last Medication Dose Route Stop Time Status Admin Albuterol Sulfate 3 ML EVERY 4 HRS/AWAKE 02/25 1200 AC 02/26 INH 2014 Albuterol Sulfate 2 PUF Q4 HRS NEEDED PRN 02/24 1845 AC INH Amlodipine Besylate 5 MG DAILY 02/25 09 AC 02/26 PO 0940 Aripiprazole 10 MG DAILY 02/25 09 AC 02/26 PO 0941 Atorvastatin Calcium 10 MG 1700 02/25 1700 AC 02/26 PO 1703 Budesonide/ 2 PUF BID 02/25 1049 AC 02/26 Formoterol Fumarate INH 2126 Clopidogrel Bisulfate 75 MG DAILY 02/25 0900 AC 02/26 PO 0938 Cyanocobalamin 1,000 MCG DAILY 02/25 0900 AC 02/26 PO 0938 Enoxaparin Sodium 40 MG DAILY 02/25 0900 AC 02/25 SC 0902 Guaifenesin 600 MG Q12 02/25 0900 AC 02/26 PO 2127 Ipratropium [place] 2.5 ML EVERY 4 HRS/AWAKE 02/25 1200 AC 02/26 INH 2014 Methylprednisolone 40 MG Q12H 02/26 1800 AC 02/27 IV 0545 Methylprednisolone 40 MG Q8 02/24 2200 DC 02/26 IV 0601 Mirtazapine 15 MG QPM 02/24 2100 AC 02/26 PO 2127 Oxybutynin Chloride 5 MG BID 02/25 09 AC 02/26 PO 212 Paroxetine HCl 60 MG DAILY 02/25 09 AC 02/26 PO 0939 Patient Medication 1 ED ONE ONE 02/26 1445 HI 02/26 Teaching ED 02/26 1446 1705 Last 24 Hrs of Lab/Chauncey Results Last 24 Hrs of Labs/Mics: Laboratory Tests 02/26/18 0730: Anion Gap 8, Estimated GFR > 60, Glucose 124 H, Calcium 9.9, Phosphorus 3.7, Magnesium 2.5 H, Total Bilirubin 0.2, AST 20, ALT 27, Albumin 3.7, CBC w Diff NO MAN DIFF REQ, RBC 3.52 L, MCV 89.9, MCH 29.5, MCHC 32.8 L, RDW 13.4, MPV 9.2, Gran % 96.1 H, Lymphocytes % 1.4 L, Monocytes % 2.5, Eosinophils % 0, Basophils % 0, Absolute Granulocytes 14.3 H, Absolute Lymphocytes 0.2 L, Absolute Monocytes 0.4, Absolute Eosinophils 0, Absolute Basophils 0 Assessment/Plan Assessment: Ms. Edwards is a 72-year-old with a past medical history of COPD on chronic 3 L home oxygen followed by Dr. Stevens, hypertension, hyperlipidemia, HFpEF, s/p carotid endarterectomy, TIA, osteoporosis and recent admission for COPD exacerbation who presents with shortness of breath. Problem List: 1. Acute on chronic hypercarbic respiratory failure 2. Normocytic anemia #Acute on chronic hypercarbic respiratory failure: Patient presented with history of shortness of breath with recent admission for COPD exacerbation. Her ABG showed severe hypercarbia with respiratory acidosis. This improved with BiPAP. However this the first time the patient required BiPAP and therefore she was initially admitted to the ICU. She was downgraded to general medicine on . Her breathing has improved and she is now on her home 3 L oxygen. After speaking with pulmonology, it seems that she will not require BiPAP going home. -Continue steroid taper -Albuterol -Budesonide/formoterol -Appreciate pulmonology recommendations, discharge with budesonide/formoterol, stop fluticasone -PT consult -TRC nebs -Avoid sedation -Consideration should be made towards initiating triple inhaler therapy #Normocytic anemia: Likely anemia of chronic disease -Continue to monitor #Chronic medical problems: -Continue other home medications DVT prophylaxis with heparin Heart healthy diet DNR/DNI Problem List: 1. Hypercapnic respiratory failure Pain Ratin Pain Location: no Pain Goal: Remain pain free Pain Plan: see a/p Tomorrow's Labs & Rationales: no
--- NOTE | 2018-02-27 07:12 | Patient Discharge Instructions ---
Discharge Instructions General Discharge Information You were seen/treated for: Acute on chronic hypercarbic respiratory failure Watch for these problems: Fever, chest pain, shortness of breath Special Instructions: Please take all medications as directed. Please follow-up with primary care and pulmonology. Diet Continue normal diet: Yes Activity Full Activity/No Limits: Yes Acute Coronary Syndrome Inclusion Criteria At DC or during hospital stay patient has or had the following: ACS DIAGNOSIS No Discharge Core Measures Meds if any: Prescribed or Continued at Discharge Meds if any: NOT Prescribed or Continued at Discharge Congestive Heart Failure Inclusion Criteria At DC or during hospital stay patient has or had the following: CHF DIAGNOSIS No Discharge Core Measures Meds if any: Prescribed or Continued at Discharge Meds if any: NOT Prescribed or Continued at Discharge Cerebrovascular accident Inclusion Criteria At DC or during hospital stay patient has or had the following: CVA/TIA Diagnosis No Discharge Core Measures Meds if any: Prescribed or Continued at Discharge Meds if any: NOT Prescribed or Continued at Discharge Venous thromboembolism Inclusion Criteria VTE Diagnosis No VTE Type NONE VTE Confirmed by (Test) NONE Discharge Core Measures - Per Current guidelines, there needs to be overlap - treatment for the first 5 days of Warfarin therapy. - If discharged on Warfarin prior to 5 days of - overlap therapy, the patient will need to be - assessed for post discharge needs including - *Post discharge parental anticoagulation - *Warfarin and/or parental anticoagulation education - *Follow up date to check INR post discharge At least 5 days overlap therapy as Inpatient No Meds if any: Prescribed or Continued at Discharge Note: Overlap Therapy is Warfarin and Anticoagulant Meds if any: NOT Prescribed or Continued at Discharge
[2018-02-27] MEDS ORDERED: PREDNISONE10 M2 PO ×2 (07:55→10:55)
--- NOTE | 2018-02-27 10:54 | PN- Pulmonary ---
Subjective HPI/Critical Care Issues: Patient seen and examined this morning. She feels better and she is back to her original 3 L nasal cannula oxygen. Objective Current Medications: Current Medications Sig/Oskar Start time Last Medication Dose Route Stop Time Status Admin Albuterol Sulfate 3 ML EVERY 4 HRS/AWAKE 02/25 1200 AC 02/27 INH 0815 Albuterol Sulfate 2 PUF Q4 HRS NEEDED PRN 02/24 1845 AC INH Amlodipine Besylate 5 MG DAILY 02/25 0900 AC 02/27 PO 0907 Aripiprazole 10 MG DAILY 02/25 0900 AC 02/27 PO 0907 Atorvastatin Calcium 10 MG 1700 02/25 1700 AC 02/26 PO 1703 Budesonide/ 2 PUF BID 02/25 1049 AC 02/27 Formoterol Fumarate INH 0908 Clopidogrel Bisulfate 75 MG DAILY 02/25 0900 AC 02/27 PO 0908 Cyanocobalamin 1,000 MCG DAILY 02/25 0900 AC 02/27 PO 0908 Enoxaparin Sodium 40 MG DAILY 02/25 0900 AC 02/27 SC 0922 Guaifenesin 600 MG Q12 02/25 0900 AC 02/27 PO 0907 Ipratropium [place] 2.5 ML EVERY 4 HRS/AWAKE 02/25 1200 AC 02/27 INH 0815 Methylprednisolone 40 MG DAILY 02/27 0900 AC 02/27 IV 0908 Methylprednisolone 40 MG Q12H 02/26 1800 DC 02/27 IV 0545 Mirtazapine 15 MG QPM 02/24 2100 AC 02/26 PO 2127 Oxybutynin Chloride 5 MG BID 02/25 09 AC 02/27 PO 0907 Paroxetine HCl 60 MG DAILY 02/25 09 AC 02/27 PO 0907 Patient Medication 1 ED ONE ONE 02/26 1445 DC 02/26 Teaching ED 02/26 1446 1705 Vital Signs & I&O Last 24 Hrs of Vitals and I&O: Vital Signs Date Time Temp Pulse Resp B/P B/P Pulse O2 O2 Flow FiO2 Mean Ox Delivery Rate 02/27 907 80 148/70 02/27 0815 99 Nasal 3.0L Cannula 02/27 0647 97.4 78 18 154/78 99 Nasal 3.0L Cannula 02/27 0000 Nasal 3.0L Cannula 02/26 2251 98.3 86 19 130/60 99 Nasal Cannula 02/26 1730 Nasal 3.0L Cannula 02/26 1700 109 93 02/26 1635 99 Nasal 3.0L Cannula 02/26 1428 98.5 79 19 140/60 100 Intake & Output 02/27 1600 02/27 0800 02/27 0000 Intake Total 120 100 Output Total 200 Balance 120 -100 Intake, IV 20 Intake, Oral 100 100 Output, Urine 200 Exam Other Physical Findings: Patient is awake and alert. Her heart exam is normal. Her lung examination shows a prolonged end expiratory phase with rare rhonchi and diminished airway sounds. No edema. Impression/Plan Impression/Plan Impression/Plan: Impression 72 year old woman * COPD exacerbation with acute hypercarbic and hypoxemic respiratory failure Plan -solumedrol 40mg iv q12h, will taper to po prednisone tomorrow in am, if no events would recommend to begin with 50mg x 2 days, 40mg x 2 days, 30mg x 2 days , 20mg x 2 days, 10mg x 2 days then stop -trc/nebs -off bipap currently, wishes to not use it unless absolutely necessary, will dc for now -albuterol/ipratropium -can resume spiriva on an outpatient basis -symbicort instead of flovent - also dc with symbicort, rinsing of the mouth -no need for abx at this time DVT prophylaxis at all times
[2018-02-27 14:46] VITALS: BP 134/78
[2018-02-27 22:37] VITALS: BP 144/60
[2018-02-28 06:40] VITALS: BP 140/54
[2018-02-28] MEDS ORDERED: PREDNISONE10 M2 PO (06:59)
--- NOTE | 2018-02-28 06:59 | PN- Housestaff ---
See Addendum Subjective Follow-up For: COPD, chronic respiratory failure Subjective: No overnight events. The patient says her breathing is still relatively good but she is still nervous about going home. She would like to stay in the hospital another day. She is nervous because she is worried she will become acutely short of breath again and have to come back to the hospital. Review of Systems Constitutional: Reports: no symptoms. EENTM: Reports: no symptoms. Cardiovascular: Reports: no symptoms. Respiratory: Reports: see HPI. Gastrointestinal: Reports: no symptoms. Genitourinary: Reports: no symptoms. Musculoskeletal: Reports: no symptoms. Skin: Reports: no symptoms. Neurological/Psychological: Reports: no symptoms. Hematologic/Endocrine: Reports: no symptoms. Immunologic/Allergic: Reports: no symptoms. Objective Last 24 Hrs of Vital Signs/I&O Vital Signs Date Time Temp Pulse Resp B/P B/P Pulse O2 O2 Flow FiO2 Mean Ox Delivery Rate 02/28 0640 97.7 72 20 140/54 99 Nasal 3.0L Cannula 02/27 2246 98 Nasal 3.0L Cannula 02/27 2237 97.7 75 20 144/60 98 02/27 1625 97 Nasal 3.0L Cannula 02/27 1600 Nasal 3.0L Cannula 02/27 1446 97.7 87 18 134/78 97 Nasal Cannula 02/27 0907 80 148/70 02/27 0815 99 Nasal 3.0L Cannula 02/27 0800 95 Nasal 3.0L Cannula Intake & Output 02/28 0800 05/02 0000 02/27 1600 Intake Total 130 260 480 Output Total Balance 130 260 480 Intake, IV 10 20 Intake, Oral 120 240 480 Number 0 Bowel Movements Physical Exam General Appearance: Alert, Oriented X3, Cooperative, No Acute Distress Cardiovascular: Regular Rate, Normal S1, Normal S2 Lungs: coarse Abdomen: Normal Bowel Sounds, Soft, No Tenderness Extremities: No Edema, Normal Pulses, No Tenderness/Swelling Current Medications: Current Medications Sig/Oskar Start time Last Medication Dose Route Stop Time Status Admin Albuterol Sulfate 3 ML EVERY 4 HRS/AWAKE 02/25 1200 AC 02/27 INH 2020 Albuterol Sulfate 2 PUF Q4 HRS NEEDED PRN 02/24 1845 AC INH Amlodipine Besylate 5 MG DAILY 02/25 09 AC 02/27 PO 0907 Aripiprazole 10 MG DAILY 02/25 0900 AC 02/27 PO 0907 Atorvastatin Calcium 10 MG 1700 02/25 1700 AC 02/27 PO 1715 Budesonide/ 2 PUF BID 02/25 1049 AC 02/27 Formoterol Fumarate INH 2051 Calcium Carbonate 500 MG ONCE ONE 02/27 1715 DC 02/27 PO 02/27 1716 1728 Clopidogrel Bisulfate 75 MG DAILY 02/25 09 AC 02/27 PO 0908 Cyanocobalamin 1,000 MCG DAILY 02/25 900 AC 02/27 PO 0908 Enoxaparin Sodium 40 MG DAILY 02/25 09 AC 02/27 SC 0922 Guaifenesin 600 MG Q12 02/25 09 AC 02/27 PO 2049 Ipratropium [place] 2.5 ML EVERY 4 HRS/AWAKE 02/25 1200 AC 02/27 INH 2020 Methylprednisolone 40 MG Q12 02/27 2100 AC 02/27 IV 2050 Methylprednisolone 40 MG DAILY 02/27 0900 DC 02/27 IV 0908 Methylprednisolone 40 MG Q12H 02/26 1800 DC 02/27 IV 0545 Mirtazapine 15 MG QPM 02/24 2100 AC 02/27 PO 2049 Oxybutynin Chloride 5 MG BID 02/25 900 AC 02/27 PO 205 Paroxetine HCl 60 MG DAILY 02/25 900 AC 02/27 PO 0907 Assessment/Plan Assessment: Ms. Edwards is a 72-year-old with a past medical history of COPD on chronic 3 L home oxygen followed by Dr. Stevens, hypertension, hyperlipidemia, HFpEF, s/p carotid endarterectomy, TIA, osteoporosis and recent admission for COPD exacerbation who presents with shortness of breath. Problem List: 1. Acute on chronic hypercarbic respiratory failure 2. Normocytic anemia #Acute on chronic hypercarbic respiratory failure: Patient presented with history of shortness of breath with recent admission for COPD exacerbation. Her ABG showed severe hypercarbia with respiratory acidosis. This improved with BiPAP. However this the first time the patient required BiPAP and therefore she was initially admitted to the ICU. She was downgraded to general medicine on . Her breathing has improved and she is now on her home 3 L oxygen. After speaking with pulmonology, it seems that she will not require BiPAP going home. She is still nervous about returning home and having another episode of shortness of breath. -Continue steroid taper -Albuterol -Budesonide/formoterol -Appreciate pulmonology recommendations, discharge with budesonide/formoterol, stop fluticasone -PT consult -TRC nebs -Avoid sedation -Consideration should be made towards initiating triple inhaler therapy #Normocytic anemia: Likely anemia of chronic disease -Continue to monitor #Chronic medical problems: -Continue other home medications DVT prophylaxis with heparin Heart healthy diet DNR/DNI Problem List: 1. Hypercapnic respiratory failure Pain Ratin Pain Location: no Pain Goal: Remain pain free Pain Plan: see a/p Tomorrow's Labs & Rationales: no
--- NOTE | 2018-02-28 11:43 | PN- Pulmonary ---
Subjective HPI/Critical Care Issues: Patient seen and examined this morning. She is sitting upright in the chair and overall feels better she continues to have significant shortness of breath on exertion however slowly returning to her baseline. Her discharge planning is within 24 hours. Objective Current Medications: Current Medications Sig/Oskar Start time Last Medication Dose Route Stop Time Status Admin Albuterol Sulfate 3 ML EVERY 4 HRS/AWAKE 02/25 1200 AC 02/28 INH 0814 Albuterol Sulfate 2 PUF Q4 HRS NEEDED PRN 02/24 1845 AC INH Amlodipine Besylate 5 MG DAILY 02/25 09 AC 02/28 PO 0740 Aripiprazole 10 MG DAILY 02/25 09 AC 02/28 PO 0739 Atorvastatin Calcium 10 MG 1700 02/25 1700 AC 02/27 PO 1715 Budesonide/ 2 PUF BID 02/25 1049 AC 02/28 Formoterol Fumarate INH 0740 Calcium Carbonate 500 MG ONCE ONE 02/27 1715 DC 02/27 PO 02/27 1716 1728 Clopidogrel Bisulfate 75 MG DAILY 02/25 09 AC 02/28 PO 0740 Cyanocobalamin 1,000 MCG DAILY 02/25 09 AC 02/28 PO 0740 Enoxaparin Sodium 40 MG DAILY 02/25 09 AC 02/28 SC 0740 Guaifenesin 600 MG Q12 02/25 09 AC 02/28 PO 0739 Ipratropium [place] 2.5 ML EVERY 4 HRS/AWAKE 02/25 1200 AC 02/28 INH 0814 Methylprednisolone 40 MG Q12 02/27 2100 AC 02/28 IV 0740 Mirtazapine 15 MG QPM 02/24 2100 AC 02/27 PO 2050 Oxybutynin Chloride 5 MG BID 02/25 09 AC 02/28 PO 0739 Paroxetine HCl 60 MG DAILY 02/25 09 AC 02/28 PO 0740 Patient Medication 1 ED ONE ONE 02/28 1115 DC Teaching ED 02/28 1116 Vital Signs & I&O Last 24 Hrs of Vitals and I&O: Vital Signs Date Time Temp Pulse Resp B/P B/P Pulse O2 O2 Flow FiO2 Mean Ox Delivery Rate 02/28 815 99 Nasal 2.0L Cannula 02/28 0800 Nasal 3.0L Cannula 02/28 0740 97.7 72 20 140/54 02/28 0640 97.7 72 20 140/54 99 Nasal 3.0L Cannula 02/276 98 Nasal 3.0L Cannula 02/27 2237 97.7 75 20 144/60 98 02/27 1625 97 Nasal 3.0L Cannula 02/27 1600 Nasal 3.0L Cannula 02/27 1446 97.7 87 18 134/78 97 Nasal Cannula Intake & Output 02/28 1600 02/28 0800 02/28 0000 Intake Total 130 260 Output Total Balance 130 260 Intake, IV 10 20 Intake, Oral 120 240 Exam Other Physical Findings: alert and awake prolonged end expiratory phase, diminished breath sounds no edema Impression/Plan Impression/Plan Impression/Plan: Impression 72 year old woman * COPD exacerbation with acute hypercarbic and hypoxemic respiratory failure Plan -steroid taper as ordered -albuterol/ipratropium -can resume spiriva on an outpatient basis -symbicort instead of flovent - also dc with symbicort, rinsing of the mouth -dc planning for 03/01/18 DVT prophylaxis at all times
[2018-02-28 14:36] VITALS: BP 138/58
[2018-02-28 22:18] VITALS: BP 170/62
[2018-03-01 05:37] VITALS: BP 140/60
--- NOTE | 2018-03-01 07:56 | PN- Housestaff ---
See Addendum Subjective Follow-up For: COPD exacerbation Subjective: No overnight events. Patient feels ready to go home today. No complaints. Review of Systems Constitutional: Reports: no symptoms. EENTM: Reports: no symptoms. Cardiovascular: Reports: no symptoms. Respiratory: Reports: no symptoms. Gastrointestinal: Reports: no symptoms. Genitourinary: Reports: no symptoms. Musculoskeletal: Reports: no symptoms. Skin: Reports: no symptoms. Neurological/Psychological: Reports: no symptoms. Hematologic/Endocrine: Reports: no symptoms. Immunologic/Allergic: Reports: no symptoms. Objective Last 24 Hrs of Vital Signs/I&O Vital Signs Date Time Temp Pulse Resp B/P B/P Pulse O2 O2 Flow FiO2 Mean Ox Delivery Rate 03/01 0537 97.7 68 20 140/60 100 Nasal 2.0L Cannula 03/01 0514 97 Nasal 2.0L Cannula 02/28 2349 Nasal 3.0L Cannula 02/28 2218 97.9 75 24 170/62 97 Nasal 2.0L Cannula 02/28 2029 98 Nasal 2.0L Cannula 02/28 1436 98.6 71 20 138/58 98 Nasal Cannula 02/28 0815 99 Nasal 2.0L Cannula 02/28 0800 Nasal 3.0L Cannula Intake & Output 03/01 0800 03/01 0000 02/28 1600 Intake Total 360 360 400 Output Total 300 Balance 360 360 100 Intake, Oral 360 360 400 Output, Urine 300 Physical Exam General Appearance: Alert, Oriented X3, Cooperative, No Acute Distress Cardiovascular: Regular Rate, Normal S1, Normal S2 Lungs: Clear to Auscultation Abdomen: Normal Bowel Sounds, Soft, No Tenderness Extremities: No Edema, Normal Pulses, No Tenderness/Swelling Current Medications: Current Medications Sig/Oskar Start time Last Medication Dose Route Stop Time Status Admin Albuterol Sulfate 3 ML EVERY 4 HRS/AWAKE 02/25 1200 AC 03/01 INH 0514 Albuterol Sulfate 2 PUF Q4 HRS NEEDED PRN 02/24 1845 AC INH Amlodipine Besylate 5 MG DAILY 02/25 0900 AC 02/28 PO 0740 Aripiprazole 10 MG DAILY 02/25 0900 AC 02/28 PO 0739 Atorvastatin Calcium 10 MG 1700 02/25 1700 AC 02/28 PO 1734 Budesonide/ 2 PUF BID 02/25 1049 AC 02/28 Formoterol Fumarate INH 2124 Clopidogrel Bisulfate 75 MG DAILY 02/25 900 AC 02/28 PO 0740 Cyanocobalamin 1,000 MCG DAILY 02/25 900 AC 02/28 PO 0740 Enoxaparin Sodium 40 MG DAILY 02/25 900 AC 02/28 SC 0740 Guaifenesin 600 MG Q12 02/25 900 AC 02/28 PO 2123 Ipratropium [place] 2.5 ML EVERY 4 HRS/AWAKE 02/25 1200 AC 03/01 INH 0514 Methylprednisolone 40 MG DAILY 03/01 900 AC IV Methylprednisolone 40 MG Q12 02/27 2100 DC 02/28 IV 0740 Mirtazapine 15 MG QPM 02/24 2100 AC 02/28 PO 2123 Oxybutynin Chloride 5 MG BID 02/25 900 AC 02/28 PO 2123 Paroxetine HCl 60 MG DAILY 02/25 900 AC 02/28 PO 0740 Patient Medication 1 ED ONE ONE 02/28 1115 DC 02/28 Teaching ED 02/28 1116 1323 Assessment/Plan Assessment: Ms. Edwards is a 72-year-old with a past medical history of COPD on chronic 3 L home oxygen followed by Dr. Stevens, hypertension, hyperlipidemia, HFpEF, s/p carotid endarterectomy, TIA, osteoporosis and recent admission for COPD exacerbation who presents with shortness of breath. Problem List: 1. Acute on chronic hypercarbic respiratory failure 2. Normocytic anemia #Acute on chronic hypercarbic respiratory failure: Patient presented with history of shortness of breath with recent admission for COPD exacerbation. Her ABG showed severe hypercarbia with respiratory acidosis. This improved with BiPAP. However this the first time the patient required BiPAP and therefore she was initially admitted to the ICU. She was downgraded to general medicine on . Her breathing has improved and she is now on her home 3 L oxygen. After speaking with pulmonology, it seems that she will not require BiPAP going home. Today she feels better about going home. -Continue steroid taper -Albuterol -Budesonide/formoterol -Appreciate pulmonology recommendations, discharge with budesonide/formoterol, stop fluticasone -PT consult -TRC nebs -Avoid sedation -Consideration should be made towards initiating triple inhaler therapy #Normocytic anemia: Likely anemia of chronic disease -Continue to monitor #Chronic medical problems: -Continue other home medications DVT prophylaxis with heparin Heart healthy diet DNR/DNI Problem List: 1. COPD exacerbation Pain Ratin Pain Location: no Pain Goal: Remain pain free Pain Plan: see a/p Tomorrow's Labs & Rationales: no
[2018-03-01] MEDS ORDERED: PREDNISONE10 M2 PO ×2 (08:23→10:43)
[2018-03-01] MEDS ORDERED: SYMBICORT 16010.2 GM INH (10:43)
--- NOTE | 2018-03-01 10:43 | Discharge Summary ---
See Addendum Visit Information Visit Dates Admission Date: 02/25/18 Discharge Date: 03/01/18 Hospital Course Course Attending Physician: Alana Wiggins MD Primary Care Physician: Fernando LONGORIA,[facility] Course: Ms. Rivero is a 72-year-old with a past medical history of COPD on chronic 3 L home oxygen followed by Dr. Stevens, hypertension, hyperlipidemia, HFpEF, s/p carotid endarterectomy, TIA, osteoporosis and recent admission for COPD exacerbation who presented with shortness of breath. On admission, vital signs were T 98.5, HR 76, RR 20, BP 102/52, saturating 100% on the liters nasal cannula. Laboratories were significant for hemoglobin 10.5, chloride 96, carbon dioxide 37, ABG showing respiratory acidosis. Chest x-ray showed findings consistent with COPD. She was treated with BiPAP, prednisone, ipratropium, and albuterol in the emergency room. She was initially admitted to the ICU and then transferred to general medicine after treatment and stabilization of her condition and treated for the following problems: 1. Acute on chronic hypercarbic respiratory failure secondary to COPD 2. Normocytic anemia #Acute on chronic hypercarbic respiratory failure: Patient presented with history of shortness of breath with recent admission for COPD exacerbation. Her ABG showed severe hypercarbia with respiratory acidosis. This improved with BiPAP. However this the first time the patient required BiPAP and therefore she was initially admitted to the ICU. She was downgraded to general medicine on . Her breathing has improved and she is now on her home 3 L oxygen. After speaking with pulmonology, it seems that she will not require BiPAP going home. Her steroids were tapered and she should continue the steroid taper going home. She should also start taking budesonide/formoterol onset of fluticasone. She will follow-up with pulmonology and primary care. Consideration should be made towards initiating triple inhaler therapy. #Normocytic anemia: Likely anemia of chronic disease. Hemoglobin was stable and there were no signs of bleeding. #Chronic medical problems: Other home medications were continued. Allergies: Coded Allergies: oxycodone (KNOCKED ME OUT 01/13/16) Disposition Summary Disposition Principal Diagnosis: 1. Acute on chronic hypercarbic respiratory failure secondary to COPD Additional Diagnosis: 2. Normocytic anemia Discharge Disposition: home health services Discharge Instructions General Discharge Information Code Status: Do Not Resucitate/Intubat Patient's Diet: Heart healthy diet Patient's Activity: As tolerated Follow-Up Instructions/Appts: Please take all medications as directed. Please follow-up with primary care and pulmonology. Medications at Discharge Discharge Medications: Stop taking the following medications: Fluticasone Propionate (Flovent Hfa) 220 MCG AER.W.ADAP Inhale through mouth TWICE DAILY Qty = 12 Continue taking these medications: Paroxetine HCl (Paroxetine HCl) 40 MG TABLET 1.5 Tablet ORAL DAILY Comments: Last Taken: 03/01/18 Time: 1100 AM Clopidogrel Bisulfate (Clopidogrel) 75 MG TABLET 1 Tablet ORAL DAILY Qty = 90 Comments: Last Taken: 03/01/18 Time: 9:00 AM Simvastatin (Simvastatin*) 20 MG TABLET 1 Tablet ORAL Every night Comments: Last Taken: 02/28/18 Time: 4:30 PM (LIPITOR 10MG GIVEN) Aripiprazole (Abilify) 10 MG TABLET 1 Tablet ORAL DAILY Qty = 30 Comments: Last Taken: 03/01/18 Time: 9:00 AM Amlodipine Besylate (Norvasc) 5 MG TABLET 1 Tablet ORAL DAILY Comments: Last Taken: 03/01/18 Time: 9:00 AM Albuterol Sulfate (Ventolin Hfa) 90 MCG HFA.AER.AD 2 Puff Inhale through mouth EVERY 4 HOURS NEEDED as needed for COPD Qty = 18 Comments: NOT GIVEN IN HOSPITAL Solifenacin Succinate (Vesicare) 10 MG TABLET 1 Tablet ORAL DAILY Qty = 90 Comments: NOT GIVEN Tiotropium [place] (Spiriva) 18 MCG CAP.W.DEV 1 Capsule Inhale through mouth DAILY Comments: NOT GIVEN IN HOSPITAL Mirtazapine (Mirtazapine) 30 MG TABLET 1 Tablet ORAL Every night Qty = 30 Comments: Last Taken: 02/28/18 Time: 9:30 PM Albuterol Sulfate (Albuterol Sulfate) 2.5 MG/3 ML (0.083 %) VIAL.NEB 3 Milliliters Inhale through mouth THREE TIMES DAILY as needed for Shortness of breath Qty = 1 Comments: Last Taken: 03/01/18 Time: 9AM Polyethylene Glycol 3350 (Miralax) 17 GRAM POWD.PACK 1 Packet ORAL DAILY as needed for Constipation Qty = 30 Instructions: dissolve in water Comments: Last Taken: 03/01/18 Time: 9:00 AM Cyanocobalamin (Vitamin B-12) 1,000 MCG TABLET 1 Tablet ORAL DAILY Comments: Last Taken:03/01/18 Time:9AM Start taking the following new medications: Budesonide/Formoterol Fumarate (Symbicort 160-4.5 Mcg Inhaler) 160 MCG-4.5 MCG/ ACTUATION HFA.AER.AD 2 Puff Inhale through mouth TWICE DAILY Qty = 1 No Refills Instructions: Please rinse mouth after use Comments: Last Taken:02/28/18 Time:9AM Prednisone (Prednisone) 10 MG TABLET 1 Tablet ORAL DAILY Qty = 20 No Refills Instructions: Please take , 40mg on 03/02/18-03/03/18, 30mg on 03/04/18-03/05/18, 20mg on 03/06/18-03/07/18, 10mg on 03/08/18-03/09/18 then stop Comments: IV SOLUMEDROL GIVEN IN HOSPITAL Copies To: Fernando LONGORIA,Zina; Dany LONGORIA,Fady
--- NOTE | 2018-03-01 11:02 | PN- Pulmonary ---
Subjective HPI/Critical Care Issues: pt seen and examined anticipating dc feeling better overall and returning to respiratory baseline Objective Current Medications: Current Medications Sig/Oskar Start time Last Medication Dose Route Stop Time Status Admin Albuterol Sulfate 3 ML EVERY 4 HRS/AWAKE 02/25 1200 AC 03/01 INH 0514 Albuterol Sulfate 2 PUF Q4 HRS NEEDED PRN 02/24 1845 AC INH Amlodipine Besylate 5 MG DAILY 02/25 0900 AC 03/01 PO 0915 Aripiprazole 10 MG DAILY 02/25 0900 AC 03/01 PO 0914 Atorvastatin Calcium 10 MG 1700 02/25 1700 AC 05 PO 1734 Budesonide/ 2 PUF BID 02/25 1049 AC 03/01 Formoterol Fumarate INH 0914 Clopidogrel Bisulfate 75 MG DAILY 02/25 09 AC 03/01 PO 0915 Cyanocobalamin 1,000 MCG DAILY 02/25 0900 AC 03/01 PO 0915 Enoxaparin Sodium 40 MG DAILY 02/25 0900 AC 03/01 SC 0914 Guaifenesin 600 MG Q12 02/25 0900 AC 03/01 PO 0914 Ipratropium [place] 2.5 ML EVERY 4 HRS/AWAKE 02/25 1200 AC 03/01 INH 0514 Methylprednisolone 40 MG DAILY 03/01 09 AC 03/01 IV 0914 Methylprednisolone 40 MG Q12 02/27 2100 DC 02/28 IV 0740 Mirtazapine 15 MG QPM 02/24 2100 AC 02/28 PO 2123 Oxybutynin Chloride 5 MG BID 02/25 0900 AC 03/01 PO 0914 Paroxetine HCl 60 MG DAILY 02/25 09 AC 02/28 PO 0740 Patient Medication 1 ED ONE ONE 02/28 1115 DC 02/28 [facility] ED 02/28 1116 1323 Vital Signs & I&O Last 24 Hrs of Vitals and I&O: Vital Signs Date Time Temp Pulse Resp B/P B/P Pulse O2 O2 Flow FiO2 Mean Ox Delivery Rate 03/01 915 97.7 68 20 140/60 03/01 0800 Nasal 3.0L Cannula 03/01 0537 97.7 68 20 140/60 100 Nasal 2.0L Cannula 03/01 05 97 Nasal 2.0L Cannula 02/28 2349 Nasal 3.0L Cannula 02/28 2218 97.9 75 24 170/62 97 Nasal 2.0L Cannula 02/28 2029 98 Nasal 2.0L Cannula 02/28 1436 98.6 71 20 138/58 98 Nasal Cannula Intake & Output 03/01 1600 03/01 0800 03/01 0000 Intake Total 360 360 Output Total Balance 360 360 Intake, Oral 360 360 Exam Other Physical Findings: alert and awake prolonged end expiratory phase, diminished breath sounds no edema Impression/Plan Impression/Plan Impression/Plan: Impression 72 year old woman * COPD exacerbation with acute hypercarbic and hypoxemic respiratory failure Plan -steroid taper as ordered -albuterol/ipratropium -can resume spiriva on an outpatient basis -symbicort instead of flovent - also dc with symbicort, rinsing of the mouth -okay for dc DVT prophylaxis at all times
--- NOTE | 2018-03-01 17:14 | Event Note ---
Event Note Event Note: Situation Nursing called that patient doesn't feel to go home today. Patient noted that she had some stairs at home that she can do. Background Ms. Edwards is a 72-year-old with a past medical history of COPD on chronic 3 L home oxygen followed by Dr. Stevens, hypertension, hyperlipidemia, HFpEF, s/p carotid endarterectomy, TIA, osteoporosis and recent admission for COPD exacerbation who presents with shortness of breathing. Assessment and plan Patient was suggested to go to [facility], with PT but she refused earlier today. Daughter was at the bedside. Patient noted that she thinks she can do it and she wants to go to [facility]. Accordingly discharge order was canceled. Plan to sign out to the morning team and case managing regarding placement.
[2018-03-01 18:40] VITALS: BP 138/80
[2018-03-01 22:28] VITALS: BP 140/70
[2018-03-02 06:20] VITALS: BP 94/60
[2018-03-02] MEDS ORDERED: PREDNISONE10 M2 PO (07:22)
--- NOTE | 2018-03-02 07:22 | PN- Housestaff ---
See Addendum Subjective Follow-up For: COPD Subjective: No overnight events. The patient was supposed to be discharged yesterday but said that she could not walk very well so she decided that she needed to stay go to rehab instead. Her breathing is still good, no other complaints. Review of Systems Constitutional: Reports: no symptoms. EENTM: Reports: no symptoms. Cardiovascular: Reports: no symptoms. Respiratory: Reports: no symptoms. Gastrointestinal: Reports: no symptoms. Genitourinary: Reports: no symptoms. Musculoskeletal: Reports: no symptoms. Skin: Reports: no symptoms. Neurological/Psychological: Reports: no symptoms. Hematologic/Endocrine: Reports: no symptoms. Immunologic/Allergic: Reports: no symptoms. Objective Last 24 Hrs of Vital Signs/I&O Vital Signs Date Time Temp Pulse Resp B/P B/P Pulse O2 O2 Flow FiO2 Mean Ox Delivery Rate 03/02 620 98.5 88 20 94/60 94 Room Air 03/01 2242 94 Nasal 3.0L Cannula 03/01 2228 98.0 78 20 140/70 98 Nasal Cannula 03/01 1840 98.1 82 20 138/80 94 Nasal 3.0L Cannula 03/01 1625 99 Nasal 2.0L Cannula 03/01 1232 96 Nasal 2.0L Cannula 03/01 0915 97.7 68 20 140/60 03/01 0800 Nasal 3.0L Cannula Intake & Output 03/02 0800 03/02 0000 03/01 1600 Intake Total 250 250 Output Total Balance 250 250 Intake, IV 10 10 Intake, Oral 240 240 Physical Exam General Appearance: Alert, Oriented X3, Cooperative, No Acute Distress Cardiovascular: Regular Rate, Normal S1, Normal S2 Lungs: Clear to Auscultation Abdomen: Normal Bowel Sounds, Soft, No Tenderness Extremities: No Edema, Normal Pulses, No Tenderness/Swelling Current Medications: Current Medications Sig/Oskar Start time Last Medication Dose Route Stop Time Status Admin Albuterol Sulfate 3 ML EVERY 4 HRS/AWAKE 02/25 1200 AC 03/01 INH 2039 Albuterol Sulfate 2 PUF Q4 HRS NEEDED PRN 02/24 1845 AC INH Amlodipine Besylate 5 MG DAILY 02/25 0900 AC 03/01 PO 0915 Aripiprazole 10 MG DAILY 02/25 0900 AC 03/01 PO 0914 Atorvastatin Calcium 10 MG 1700 02/25 1700 AC 03/01 PO 1627 Budesonide/ 2 PUF BID 02/25 1049 AC 03/01 Formoterol Fumarate INH 0914 Clopidogrel Bisulfate 75 MG DAILY 02/25 09 AC 03/01 PO 0915 Cyanocobalamin 1,000 MCG DAILY 02/25 0900 AC 03/01 PO 0915 Enoxaparin Sodium 40 MG DAILY 02/25 0900 AC 03/01 SC 0914 Guaifenesin 600 MG Q12 02/25 900 AC 03/01 PO 2019 Ipratropium [place] 2.5 ML EVERY 4 HRS/AWAKE 02/25 1200 AC 03/01 INH 2039 Methylprednisolone 40 MG DAILY 03/01 09 AC 03/01 IV 0914 Mirtazapine 15 MG QPM 02/24 2100 AC 03/01 PO 2019 Oxybutynin Chloride 5 MG BID 02/25 900 AC 03/01 PO 2019 Paroxetine HCl 60 MG DAILY 02/25 900 AC 03/01 PO 1118 Assessment/Plan Assessment: Ms. Edwards is a 72-year-old with a past medical history of COPD on chronic 3 L home oxygen followed by Dr. Stevens, hypertension, hyperlipidemia, HFpEF, s/p carotid endarterectomy, TIA, osteoporosis and recent admission for COPD exacerbation who presents with shortness of breath. Problem List: 1. Acute on chronic hypercarbic respiratory failure 2. Normocytic anemia #Acute on chronic hypercarbic respiratory failure: Patient presented with history of shortness of breath with recent admission for COPD exacerbation. Her ABG showed severe hypercarbia with respiratory acidosis. This improved with BiPAP. However this the first time the patient required BiPAP and therefore she was initially admitted to the ICU. She was downgraded to general medicine on . Her breathing has improved and she is now on her home 3 L oxygen. After speaking with pulmonology, it seems that she will not require BiPAP going home. yesterday she was set to go home but then at shortness of breath going to the bathroom. She now feels like she needs rehabilitation. -Continue steroid taper -Albuterol -Budesonide/formoterol -Appreciate pulmonology recommendations, discharge with budesonide/formoterol, stop fluticasone -PT consult -TRC nebs -Avoid sedation -Consideration should be made towards initiating triple inhaler therapy #Normocytic anemia: Likely anemia of chronic disease -Continue to monitor #Chronic medical problems: -Continue other home medications DVT prophylaxis with heparin Heart healthy diet DNR/DNI Problem List: 1. COPD exacerbation Pain Ratin Pain Location: no Pain Goal: Remain pain free Pain Plan: see a/p Tomorrow's Labs & Rationales: no
--- NOTE | 2018-03-02 10:35 | PN- Pulmonary ---
Subjective HPI/Critical Care Issues: pt seen and examined decision made for STR feeling better Objective Current Medications: Current Medications Sig/Oskar Start time Last Medication Dose Route Stop Time Status Admin Albuterol Sulfate 3 ML EVERY 4 HRS/AWAKE 02/25 1200 AC 03/01 INH 203 Albuterol Sulfate 2 PUF Q4 HRS NEEDED PRN 02/24 1845 AC INH Amlodipine Besylate 5 MG DAILY 02/25 0900 AC 03/02 PO 1030 Aripiprazole 10 MG DAILY 02/25 0900 AC 03/02 PO 1025 Atorvastatin Calcium 10 MG 1700 02/25 1700 AC 03/01 PO 1627 Budesonide/ 2 PUF BID 02/25 1049 AC 03/01 Formoterol Fumarate INH 0914 Clopidogrel Bisulfate 75 MG DAILY 02/25 09 AC 03/02 PO 1028 Cyanocobalamin 1,000 MCG DAILY 02/25 0900 AC 03/02 PO 1028 Enoxaparin Sodium 40 MG DAILY 02/25 0900 AC 03/02 SC 1029 Guaifenesin 600 MG Q12 02/25 0900 AC 03/02 PO 1026 Ipratropium [place] 2.5 ML EVERY 4 HRS/AWAKE 02/25 1200 AC 03/01 INH 203 Methylprednisolone 40 MG DAILY 03/01 0900 DC 03/01 IV 0914 Mirtazapine 15 MG QPM 02/24 2100 AC 03/01 PO 2019 Oxybutynin Chloride 5 MG BID 02/25 0900 AC 03/02 PO 1025 Paroxetine HCl 60 MG DAILY 02/25 0900 AC 03/02 PO 1026 Prednisone 40 MG DAILY 03/02 09 AC 03/02 PO 1025 Vital Signs & I&O Last 24 Hrs of Vitals and I&O: Vital Signs Date Time Temp Pulse Resp B/P B/P Pulse O2 O2 Flow FiO2 Mean Ox Delivery Rate 03/02 1030 70 140/56 03/02 1002 95 Nasal 3.0L Cannula 03/02 0821 Room Air 3.0L 03/02 06 98.5 88 20 94/60 94 Room Air 03/01 2242 94 Nasal 3.0L Cannula 03/018 98.0 78 20 140/70 98 Nasal Cannula 03/01 1840 98.1 82 20 138/80 94 Nasal 3.0L Cannula 03/01 1625 99 Nasal 2.0L Cannula 03/01 1232 96 Nasal 2.0L Cannula Intake & Output 03/02 1600 03/02 0800 03/02 0000 Intake Total 250 250 Output Total Balance 250 250 Intake, IV 10 10 Intake, Oral 240 240 Exam Other Physical Findings: awake and alert normal cardiac exam lung exam unchanged - prolonged end expiratory phase, reduced breath sounds throughout no edema Impression/Plan Impression/Plan Impression/Plan: Impression 72 year old woman * COPD exacerbation with acute hypercarbic and hypoxemic respiratory failure Plan -steroid taper as ordered -albuterol/ipratropium -can resume spiriva on an outpatient basis -symbicort instead of flovent - also dc with symbicort, rinsing of the mouth -okay for dc to [facility] DVT prophylaxis at all times
[2018-03-02 14:18] VITALS: BP 128/54
[2018-03-02 14:42] VITALS: BP 128/54
== END 2018-03-02 18:30 | DRG 190 ==
LOC: DELPENDDIS → ERH 14:53 → ERHI 17:38 → ENRESERV 18:34 → CANRESERV 18:34 → ENTRNSPT 19:27 → EDBEDREQ 19:29 → EDTRNSPT 19:33 → EDTRNSPTSTS 19:33 → EDTRNSPT 19:47 → ERHI 20:47 → CMPTRNSPT 22:46 → ENRESERV 02-25 00:34 → 2NA 02-25 01:44 → CRI 02-25 01:45 → 2NA 02-25 12:53 → ENTRNSPT 02-25 13:30 → EDTRNSPTSTS 02-25 13:34 → EDTRNSPT 02-25 13:34 → 2NA 02-25 13:47 → CMPTRNSPT 02-25 14:05 → 2NA 02-26 07:53 → ENPENDDIS 03-01 11:52 → 2NA 03-02 18:30
PROVIDERS: Hospitalist; Internal Medicine Hematology & Oncology; Physician Assistant
PROC: 5A09457 Assistance with Respiratory Ventilation, 24-96 Consecutive Hours, Continuous Positive Airway Pressure (ICD-10-PCS; principal; 2018-02-25)
DX: J44.1 Chronic obstructive pulmonary disease with (acute) exacerbation (principal); J96.21 Acute and chronic respiratory failure with hypoxia; E87.2 Acidosis; J96.22 Acute and chronic respiratory failure with hypercapnia; I50.32 Chronic diastolic (congestive) heart failure; I11.0 Hypertensive heart disease with heart failure; Z99.81 Dependence on supplemental oxygen; M81.0 Age-related osteoporosis without current pathological fracture; R91.8 Other nonspecific abnormal finding of lung field; R19.7 Diarrhea, unspecified; Z86.73 Personal history of transient ischemic attack (TIA), and cerebral infarction without residual deficits; Z88.5 Allergy status to narcotic agent; Z79.51 Long term (current) use of inhaled steroids; Z66 Do not resuscitate; D50.9 Iron deficiency anemia, unspecified; Z87.891 Personal history of nicotine dependence
CPT/HCPCS: 2NASP; 36592; 71046; 81001; 82436; 87804; 87804-59; 93005; 93010; 96374; J0401; J1650; J2920; J3490; J7512